=== PATIENT | male | born 1970 ===

== ENCOUNTER 2021-09-23 08:50 | Emergency (ER) | payer MEDICAID, SELFPAY ==
[2021-09-23] VITALS (7 sets, daily range): BP systolic 153–168; BP diastolic 90–118; PULSE 67–84; RESP 16–20; TEMP 36.6–36.8; O2SAT 92–96; BMI 37.5
--- NOTE | ~2021-09-23 | XR_ITS ---
EXAMINATION: XR CHEST CLINICAL INFORMATION: Cough COMPARISON: Chest radiographs 05/08/2020, 03/26/2020, CT abdomen 03/26/2020 TECHNIQUE: Portable upright AP x2 views of the chest are obtained. FINDINGS: The lungs appear grossly clear. Bases are partly obscured by density of the overlying soft tissues and prominent epicardial areolar tissue. No air bronchograms or gross effusion. Vascularity normal. The cardiac and hilar and mediastinal contours and bony structures are stable. XR/XR chest 1V IMPRESSION: No acute intrathoracic disease.
--- NOTE | ~2021-09-23 | CT_ITS ---
EXAMINATION: CT HEAD WITHOUT CONTRAST CLINICAL INFORMATION: Weakness COMPARISON: None TECHNIQUE: Contiguous axial imaging was performed from the skull base to vertex without intravenous administration of contrast. This CT examination was performed using dose optimization techniques as appropriate, variously including the following: *Automated exposure control *Adjustment of mA and/or kV according to patient size (this includes techniques or standardized protocols for targeted exams where dose is matched to indication/reason for exam; i.e. extremities or head) *Use of iterative reconstruction technique DLP: 1009 mGy-cm FINDINGS: There is no evidence of acute intracranial hemorrhage or territorial infarction. No abnormal mass effect or midline shift is seen. Bravo to white matter differentiation is well preserved. No extra-axial fluid collections are identified. The ventricles are normal in size. There is no abnormal attenuation within the brain parenchyma. The osseous structures and soft tissues are normal. The mastoid air cells and visualized portions of the paranasal sinuses are well aerated. CT/CT head/brain wo con IMPRESSION: No acute intracranial process seen.
--- NOTE | ~2021-09-23 | US_ITS ---
EXAMINATION: US VENOUS ULTRASOUND WITH DOPPLER LOWER EXTREMITY, BILATERAL CLINICAL INFORMATION: Bilateral lower extremity pain. Assess for occult DVT COMPARISON: Bilateral lower extremity venous ultrasound with Doppler 04/08/2020, CT pelvis 03/26/2020 TECHNIQUE: Ultrasound of the deep veins is performed from the hip to the calf with compression sonography and color and pulse Doppler assessment. Spectral analysis with color-flow imaging is performed. FINDINGS: RIGHT: There is normal venous compression and respiratory variation and augmented flow. The visualized common femoral vein, superficial femoral vein, profunda femoral vein, popliteal vein, and the trifurcation region shows no evidence of deep venous thrombosis. No popliteal fossa cyst. LEFT: There is normal venous compression and respiratory variation and augmented flow. The visualized common femoral vein, superficial femoral vein, profunda femoral vein, popliteal vein, and the trifurcation region shows no evidence of deep venous thrombosis. No popliteal fossa cyst. There are incidental node seen bilateral inguinal regions with normal ye architecture and short axis dimensions 0.6 cm left and 0.5 cm right. US/US venous duplex LE BI IMPRESSION: No DVT demonstrated in the bilateral lower extremity.
[2021-09-23] MEDS: 0.9 % Sodium Chloride 1,000 ML 999 ML IV (09:34)
[2021-09-23 09:39] LABS: MANUAL DIFF FLAG NO
--- NOTE | 2021-09-23 09:40 | ED.GENADULT ---
HPI - General Adult General Chief complaint: General Medical Stated complaint: dizziness, cough, weakness Time Seen by Provider: 09/23/21 09:04 Source: patient Mode of arrival: ambulatory Limitations: no limitations History of Present Illness HPI narrative: 50-year-old male with no past medical history presents to ED for fatigue, weakness, chills and cough for the past 5 days. Patient states not vaccinated. Patient denies any chest pain, shortness of breath, or lower extremity swelling. Patient denies any abdominal pain. Patient also states mild low back pain. Patient denies any recent long travel, recent surgery, history of blood clots, estrogen use, or any recent trauma. Patient denies any pleuritic chest pain. Patient denies coughing up blood. Patient denies calf pain. Related Data Allergies Allergy/AdvReac Type Severity Reaction Status Date / Time No Known Allergies Allergy Unverified 07/17/20 17:06 [No Known Allergies*] Review of Systems Review of Systems: Yes all other systems are reviewed and are negative Constitutional: Constitutional: Reports as per HPI, Reports no additional constitutional complaints, Reports chills and Reports fatigue Eyes: Eyes: Reports as per HPI and Reports no additional eye complaints ENT: Reports system reviewed and no additional complaints, except as documented and Reports as per HPI Cardiovascular: Cardiovascular: Reports as per HPI and Reports no additional cardiovascular complaints Respiratory: Respiratory: Reports as per HPI, Reports no additional respiratory complaints and Reports cough Gastrointestinal: Gastrointestinal: Reports as per HPI and Reports no additional gastrointestinal complaints Musculoskeletal: Musculoskeletal: Reports no additional musculoskeletal complaints and Reports as per HPI Integumentary/Breasts: Skin/Breast: Reports system reviewed and no additional complaints, except as docu and Reports as per HPI Neurologic: Reports system reviewed and no additional complaints, except as documented and Reports as per HPI Psychiatric: Psychiatric: Reports no additional psychiatric complaints Endocrine: Endocrine: Reports no additional endocrine complaints, Reports as per HPI and Reports fatigue [facility] Past Medical History Medical History (Updated 09/23/21 @ 16:20 by JACLYN Shore) Depression Social History Social History Alcohol intake: never Smoked in Last 30 Days: No Use of substances other than those prescribed or required for medical reasons: No Advance Directives: No Physical Exam Vital Signs: Vital Signs: Last Vital Signs Temp 97.9 F 09/23/21 15:54 Pulse 70 09/23/21 16:19 Resp 16 09/23/21 15:54 BP 168/112 H 09/23/21 16:19 Pulse Ox 96 09/23/21 16:46 Body Mass Index 37.5 Const: General: cooperative, healthy appearing, comfortable, no acute distress, well developed, alert, awake and Physically active Orientation/consciousness: patient oriented x3 HENMT: Head: Yes normal to inspection, Yes No palpable skull fracture present, Yes normocephalic and Yes atraumatic Eyes: General: appearance normal, both eyes and all related structures Neck: Neck: Yes normal visual inspection, Yes full ROM, Yes no lymphadenopathy, Yes no meningeal signs, Yes trachea midline, Yes supple, No anterior neck swelling and No tender Chest: Chest palpation & inspection: normal inspection of the chest and normal palpation of entire chest wall Resp: Effort & Inspection: normal respiratory effort and able to speak in complete sentences Auscultation: clear to auscultation bilaterally Cardio: Jugular venous distension: no JVD Heart sounds: S1 normal heart sound present and S2 normal heart sound present GI: Inspection: Yes normal to inspection and No abdominal wall ecchymosis Palpation (GI): Soft to palpation, not firm, nontender, no guarding and not rigid : General: No CVA tenderness Back/Spine/Pelvis: Back: No CVA tenderness and No back tenderness Skin: General skin exam: no rashes or lesions noted and elasticity normal Neuro: Other: Negative slurred speech. Negative facial droop. All extremities equal strength 5+. [id number] rapid hand movement intact. Negative Romberg. Negative pronator drift. General: patient oriented x3, gait normal, no meningeal signs and CN's II-XI intact bilaterally Cranial nerves: Yes CN's II-XII intact bilaterally Extrem: Other: Lower extremities negative for swelling, pitting edema, or calf tenderness General: Yes normal to inspection and Yes full ROM Psych: Appearance: grossly normal, well kempt and not disheveled Course Course Course Narrative: Patient has no medical history but due to patient stating fatigue and cough will do cardiac evaluation due to patient being overweight and over 50. COVID swab will be sent and chest x-ray. Fluids ordered. Maybe viral syndrome. EKG ordered Reevaluation(s) Reevaluation #1: Patient EKG negative STEMI. Troponins negative. Patient informed me his legs were swelling 4 days ago with some pain but resolved on its own. To this patient was sent for ultrasound lower extremity which was negative for DVT. Chest x-ray negative pneumonia. COVID/RSV/influenza came back negative. Patient hypertensive because he did not take his meds for blood pressure this morning. Negative for any neuro deficits. takes lisinopril. Negative orthostatics. Urine negative for UTI. Not suspecting PE. Head CT scan was done due to patient stating fatigue or weakness although most likely due to mild viral syndrome. Patient will be given lisinopril dose before discharge. O2 sat on ambulation 96%. Not suspecting PE. Initial presentation O2 sat 92% due to patient lying down flat and obestiy. Patient never complained of chest pain or shortness of breath. NIH score 0. Time: 16:13 Medical Decision Making MDM Narrative Medical decision making narrative: Viral syndrome. Fatigue. Hypertension Lab Data Result diagrams: 09/23/21 09:33 09/23/21 09:33 Labs: Lab Results 09/23/21 09/23/21 09/23/21 Range/Units 09:33 09:33 09:33 WBC 9.3 (4.8-10.8) X10*3/uL RBC 4.75 (4.60-5.80) X10*6/uL Hgb 15.2 (14.0-18.0) g/dl Hct 45.5 (42.0-52.0) % MCV 95.8 (80.0-98.0) fL MCH 32.0 (27.0-33.0) pg MCHC 33.4 (31.0-36.0) g/dl RDW 11.8 (11.0-16.0) % Plt Count 235 (160-400) X10*3/uL MPV 10.2 (9.4-12.4) fL Immature Gran % (Auto) 0.5 H (0.0-0.4) % Neut % (Auto) 72.6 (45-73) % Lymph % (Auto) 19.3 L (20-40) % Licking % (Auto) 5.2 (2-11) % Eos % (Auto) 2.0 (0-4) % Baso % (Auto) 0.4 (0-2) % Lymph # (Auto) 1.8 (1.2-4.9) X10*3/uL [place]icking # (Auto) 0.5 (0.1-1.2) X10*3/uL Eos # (Auto) 0.2 (0.0-0.4) X10*3/uL Baso # (Auto) 0.0 (0.0-0.2) X10*3/uL Abs Immat Gran (auto) 0.05 H (0.00-0.03) X10*3/uL Absolute Neuts (auto) 6.8 (2.0-8.3) x10*3/uL Absolute Nucleated RBC 0.000 (0.0-0.012) X10*3/uL Nucleated RBC % (auto) 0.0 (0.0-0.2) /100WBC PT 13.6 H (9.9-13.0) SEC INR 1.2 H (0.9-1.1) APTT 38.9 H (24.1-38.0) SEC Sodium 140 (135-145) mmol/L Potassium 3.9 (3.3-5.1) mmol/L Chloride 104 (96-108) mmol/L Carbon Dioxide 28 (22-29) mmol/L Anion Gap 12 (12-20) BUN 15 (9-16) mg/dL Creatinine 0.89 (0.5-1.4) mg/dL Estim Creat Clear Calc 136.8 Estimated GFR > 60 Random Glucose 125 H (60-115) mg/dL Calcium 9.4 (8.4-10.2) mg/dL Ferritin (20-250) ng/mL Total Bilirubin 0.8 (0.0-1.0) mg/dL AST 30 (5-37) U/L ALT 39 (0-40) U/L Alkaline Phosphatase 93 (39-117) U/L Lactate Dehydrogenase 249 (118-273) U/L Total Creatine Kinase 358 H (38-174) U/L Troponin I High Sens (<3.5-35.0) ng/L B-Natriuretic Peptide (<100) pg/mL Total Protein 7.9 (6.5-8.0) g/dL Albumin 4.2 (3.5-5.0) g/dL Procalcitonin ng/mL Urine Color Urine Appearance Urine pH (5.0-8.0) Ur Specific Mouthcard (1.005-1.025) Urine Protein (NEG-TRACE) MG/DL Urine Glucose (UA) (NEG) MG/DL Urine Ketones (NEG) MG/DL Urine Blood (NEG) Urine Nitrite (NEG) Ur Leukocyte Esterase (NEG) Urine RBC (0) /HPF Urine WBC (0-4) /HPF Ur Squamous Epith Cells Urine Bacteria Influenza Type A (PCR) (Negative) Influenza Type B (PCR) (Negative) RSV RNA Qual (PCR) (Negative) SARS-CoV-2 RNA (RT-PCR) (Negative) 09/23/21 09/23/21 09/23/21 Range/Units 09:33 09:33 09:33 WBC (4.8-10.8) X10*3/uL RBC (4.60-5.80) X10*6/uL Hgb (14.0-18.0) g/dl Hct (42.0-52.0) % MCV (80.0-98.0) fL MCH (27.0-33.0) pg MCHC (31.0-36.0) g/dl RDW (11.0-16.0) % Plt Count (160-400) X10*3/uL MPV (9.4-12.4) fL Immature Gran % (Auto) (0.0-0.4) % Neut % (Auto) (45-73) % Lymph % (Auto) (20-40) % Licking % (Auto) (2-11) % Eos % (Auto) (0-4) % Baso % (Auto) (0-2) % Lymph # (Auto) (1.2-4.9) X10*3/uL [place]icking # (Auto) (0.1-1.2) X10*3/uL Eos # (Auto) (0.0-0.4) X10*3/uL Baso # (Auto) (0.0-0.2) X10*3/uL Abs Immat Gran (auto) (0.00-0.03) X10*3/uL Absolute Neuts (auto) (2.0-8.3) x10*3/uL Absolute Nucleated RBC (0.0-0.012) X10*3/uL Nucleated RBC % (auto) (0.0-0.2) /100WBC PT (9.9-13.0) SEC INR (0.9-1.1) APTT (24.1-38.0) SEC Sodium (135-145) mmol/L Potassium (3.3-5.1) mmol/L Chloride (96-108) mmol/L Carbon Dioxide (22-29) mmol/L Anion Gap (12-20) BUN (9-16) mg/dL Creatinine (0.5-1.4) mg/dL Estim Creat Clear Calc Estimated GFR Random Glucose (60-115) mg/dL Calcium (8.4-10.2) mg/dL Ferritin 145 (20-250) ng/mL Total Bilirubin (0.0-1.0) mg/dL AST (5-37) U/L ALT (0-40) U/L Alkaline Phosphatase (39-117) U/L Lactate Dehydrogenase (118-273) U/L Total Creatine Kinase (38-174) U/L Troponin I High Sens 6.1 (<3.5-35.0) ng/L B-Natriuretic Peptide 10 (<100) pg/mL Total Protein (6.5-8.0) g/dL Albumin (3.5-5.0) g/dL Procalcitonin 0.02 ng/mL Urine Color Urine Appearance Urine pH (5.0-8.0) Ur Specific Mouthcard (1.005-1.025) Urine Protein (NEG-TRACE) MG/DL Urine Glucose (UA) (NEG) MG/DL Urine Ketones (NEG) MG/DL Urine Blood (NEG) Urine Nitrite (NEG) Ur Leukocyte Esterase (NEG) Urine RBC (0) /HPF Urine WBC (0-4) /HPF Ur Squamous Epith Cells Urine Bacteria Influenza Type A (PCR) (Negative) Influenza Type B (PCR) (Negative) RSV RNA Qual (PCR) (Negative) SARS-CoV-2 RNA (RT-PCR) (Negative) 09/23/21 09/23/21 09/23/21 Range/Units 10:05 10:36 12:51 WBC (4.8-10.8) X10*3/uL RBC (4.60-5.80) X10*6/uL Hgb (14.0-18.0) g/dl Hct (42.0-52.0) % MCV (80.0-98.0) fL MCH (27.0-33.0) pg MCHC (31.0-36.0) g/dl RDW (11.0-16.0) % Plt Count (160-400) X10*3/uL MPV (9.4-12.4) fL Immature Gran % (Auto) (0.0-0.4) % Neut % (Auto) (45-73) % Lymph % (Auto) (20-40) % [place]icking % (Auto) (2-11) % Eos % (Auto) (0-4) % Baso % (Auto) (0-2) % Lymph # (Auto) (1.2-4.9) X10*3/uL [place] # (Auto) (0.1-1.2) X10*3/uL Eos # (Auto) (0.0-0.4) X10*3/uL Baso # (Auto) (0.0-0.2) X10*3/uL Abs Immat Gran (auto) (0.00-0.03) X10*3/uL Absolute Neuts (auto) (2.0-8.3) x10*3/uL Absolute Nucleated RBC (0.0-0.012) X10*3/uL Nucleated RBC % (auto) (0.0-0.2) /100WBC PT (9.9-13.0) SEC INR (0.9-1.1) APTT (24.1-38.0) SEC Sodium (135-145) mmol/L Potassium (3.3-5.1) mmol/L Chloride (96-108) mmol/L Carbon Dioxide (22-29) mmol/L Anion Gap (12-20) BUN (9-16) mg/dL Creatinine (0.5-1.4) mg/dL Estim Creat Clear Calc Estimated GFR Random Glucose (60-115) mg/dL Calcium (8.4-10.2) mg/dL Ferritin (20-250) ng/mL Total Bilirubin (0.0-1.0) mg/dL AST (5-37) U/L ALT (0-40) U/L Alkaline Phosphatase (39-117) U/L Lactate Dehydrogenase (118-273) U/L Total Creatine Kinase (38-174) U/L Troponin I High Sens 6.2 (<3.5-35.0) ng/L B-Natriuretic Peptide (<100) pg/mL Total Protein (6.5-8.0) g/dL Albumin (3.5-5.0) g/dL Procalcitonin ng/mL Urine Color YELLOW Urine Appearance CLEAR Urine pH 6.5 (5.0-8.0) Ur Specific Mouthcard 1.020 (1.005-1.025) Urine Protein NEG (NEG-TRACE) MG/DL Urine Glucose (UA) NEG (NEG) MG/DL Urine Ketones NEG (NEG) MG/DL Urine Blood TRACE (NEG) Urine Nitrite NEG (NEG) Ur Leukocyte Esterase NEG (NEG) Urine RBC 0-2 (0) /HPF Urine WBC 0-2 (0-4) /HPF Ur Squamous Epith Cells Not Reportable Urine Bacteria Not Reportable Influenza Type A (PCR) NEGATIVE (Negative) Influenza Type B (PCR) NEGATIVE (Negative) RSV RNA Qual (PCR) NEGATIVE (Negative) SARS-CoV-2 RNA (RT-PCR) NEGATIVE (Negative) ECG Data Interpretation: Normal sinus rhythm. VEntricular rate 67, MN interval 180, QRS 108, and QTC 414. negativ stemi. Discharge Plan Discharge Clinical Impression: Fatigue, Viral syndrome, Hypertension Patient Disposition: Home, Self-Care Instructions: Upper Respiratory Infection (ED), Viral Syndrome (ED), Weakness (ED), Hypertension (ED), Fatigue (ED) Additional Instructions: El electrocardiograma y los an?lisis de parker resultaron negativos por ataque card?aco, insuficiencia card?azul congestiva o disfunci?n renal. Gil radiograf?a de t?rax fue negativa para neumon?a. Gil hisopo COVID result? negativo. Ultrasonido negativo para cualquier co?gulo de parker. La tomograf?a computarizada de la mary result? normal. Los s?ntomas probablemente se deben al s?ndrome viral debido a la tos y la fatiga / debilidad. Regrese al servicio de urgencias de inmediato si tiene dolor en el pecho, dificultad para respirar, dificultad para hablar, declive facial, par?lisis de las extremidades, p?rdida de la visi?n, dolor en el pecho, dificultad para respirar, tos con parker, mareos descritos jossie la habitaci?n dando vueltas o cualquier otra preocupaci?n. s?ntomas. Mariama un seguimiento con el proveedor de atenci?n primaria. Swapnil gil medicamento para la presi?n arterial seg?n lo prescrito. Stand Alone Forms: Work/School Release Interventions: ED Discharge Assessment Last Done: 09/23/21 16:53 Discharge Date/Time: 09/23/21 16:53 Print Language: Armenian
[2021-09-23 09:42] LABS: Basophils Percent Auto 0.4 % (0-2); Eosinophils Absolute Auto 0.2 X10*3/uL (0.0-0.4); Hematocrit 45.5 % (42.0-52.0); Hemoglobin 15.2 g/dl (14.0-18.0); Imm Gran Abs Auto 0.05 X10*3/uL (0.00-0.03); Imm Gran Pct Auto 0.5 % (0.0-0.4); Lymphocytes Absolute Auto 1.8 X10*3/uL (1.2-4.9); Lymphocytes Percent Auto 19.3 % (20-40); Mean Corpuscular HGB Conc 33.4 g/dl (31.0-36.0); Mean Corpuscular Volume 95.8 fL (80.0-98.0); Mean Platelet Volume 10.2 fL (9.4-12.4); Monocytes Absolute Auto 0.5 X10*3/uL (0.1-1.2); Monocytes Percent Auto 5.2 % (2-11); Neutrophils Absolute Auto 6.8 x10*3/uL (2.0-8.3); Neutrophils Percent Auto 72.6 % (45-73); Platelet Count 235 X10*3/uL (160-400); Red Blood Count 4.75 X10*6/uL (4.60-5.80); Red Cell Distribution Width 11.8 % (11.0-16.0); White Blood Count 9.3 X10*3/uL (4.8-10.8)
[2021-09-23 09:46] LABS: INTERNATIONAL NORM RATIO 1.2 (0.9-1.1); Prothrombin Time 13.6 SEC (9.9-13.0)
[2021-09-23 09:48] LABS: Partial Thromboplastin Time 38.9 SEC (24.1-38.0)
--- NOTE | 2021-09-23 10:00 | ECG_ITS ---
Test Reason : dizzy Blood Pressure : / mmHG Vent. Rate : 067 BPM Atrial Rate : 067 BPM P-R Int : 180 ms QRS Dur : 108 ms QT Int : 392 ms P-R-T Axes : 025 -61 027 degrees QTc Int : 414 ms Normal sinus rhythm Left anterior fascicular block Nonspecific T wave abnormality Abnormal ECG When compared with ECG of 08-MAY-2020 11:20, Nonspecific T wave abnormality now evident in Lateral leads Referred By: Arturo Oakley Electronically Signed By:MARIA TERESA GRAY MD
[2021-09-23 10:04] LABS: B Type Natriuretic Peptide 10 pg/mL (<100); Troponin-I High Sensitivity 6.1 ng/L (<3.5-35.0)
[2021-09-23 10:13] LABS: Alanine Aminotransferase 39 U/L (0-40); Albumin Level 4.2 g/dL (3.5-5.0); Alkaline Phosphatase 93 U/L (39-117); Anion Gap 12 (12-20); Aspartate Amino Transferase 30 U/L (5-37); Bilirubin Total 0.8 mg/dL (0.0-1.0); Blood Urea Nitrogen 15 mg/dL (9-16); Calcium 9.4 mg/dL (8.4-10.2); Carbon Dioxide 28 mmol/L (22-29); Chloride 104 mmol/L (96-108); Creatinine Clr Calc Pharmacy 136.8; Estimated Glomerular Filt Rate > 60; Glucose Random 125 mg/dL (60-115); Potassium 3.9 mmol/L (3.3-5.1); Sodium 140 mmol/L (135-145); Total Protein 7.9 g/dL (6.5-8.0)
[2021-09-23 10:19] LABS: Ferritin 145 ng/mL (20-250)
[2021-09-23 10:21] LABS: Procalcitonin 0.02 ng/mL
[2021-09-23 10:29] LABS: Lactate Dehydrogenase 249 U/L (118-273)
[2021-09-23 10:48] LABS: Influenza A PCR NEGATIVE (Negative); Influenza B PCR NEGATIVE (Negative); Resp Syncy Virus RNA Qual PCR NEGATIVE (Negative); SARS COV2 PCR INHOUSE NEGATIVE (Negative)
[2021-09-23 10:49] LABS: Appearance Urine CLEAR; Color Urine YELLOW; Glucose Urine UA NEG (NEG); Leukocyte Esterase Urine NEG (NEG); Nitrite Urine NEG (NEG); PH 6.5 (5.0-8.0); UACC Culture Trigger NO; Urine Blood TRACE (NEG); Urine Ketones NEG (NEG); Urine Protein NEG (NEG-TRACE)
[2021-09-23 11:20] LABS: RBC Urine 0-2 /HPF (0); WBC Urine 0-2 /HPF (0-4)
[2021-09-23 13:15] LABS: Troponin-I High Sensitivity 6.2 ng/L (<3.5-35.0)
[2021-09-23] MEDS: lisinopriL 10 MG TABLET PO (16:19)
== END 2021-09-23 16:53 | disposition home or self-care (01) ==
PROVIDERS: Physician Assistant; Emergency Provider Emergency Medicine
DX: B34.9 Viral infection, unspecified (principal); R53.83 Other fatigue; I10 Essential (primary) hypertension; Z20.822 Contact with and (suspected) exposure to COVID-19; R42 Dizziness and giddiness; M54.50 Low back pain, unspecified; R05.9 Cough, unspecified; R53.1 Weakness; M79.89 Other specified soft tissue disorders; M79.662 Pain in left lower leg; M79.661 Pain in right lower leg
CPT/HCPCS: 0241U; 36415; 70450; 71045; 80053; 81001; 81003; 82550; 82728; 83615; 83880; 84145; 84484; 85025; 85610; 85730; 93005; 93970; 96360; 99284

== ENCOUNTER 2022-08-16 08:19 | Emergency (ER) | payer MEDICAID, SELFPAY ==
--- NOTE | ~2022-08-16 | XR_ITS ---
EXAMINATION: XR CHEST CLINICAL INFORMATION: Chest pain COMPARISON: 09/23/2021 TECHNIQUE: Frontal view of the chest was obtained. FINDINGS: Low lung volumes with bronchovascular crowding but no focal consolidation or mass. Normal pulmonary vascularity. No pleural effusion or pneumothorax. Cardiac silhouette remains prominent with prominent epicardial fat pads, similar to prior studies. No acute osseous abnormality. XR/XR chest 1V IMPRESSION: No acute pulmonary disease.
--- NOTE | 2022-08-16 08:25 | ECG_ITS ---
Test Reason : CP Blood Pressure : / mmHG Vent. Rate : 073 BPM Atrial Rate : 073 BPM P-R Int : 168 ms QRS Dur : 104 ms QT Int : 382 ms P-R-T Axes : 037 270 027 degrees QTc Int : 420 ms Normal sinus rhythm Left anterior fascicular block Nonspecific T wave abnormality Abnormal ECG When compared with ECG of 23-SEP-2021 10:19, No significant change was found Referred By: Generic ED Physician Electronically Signed By:MARIA TERESA GRAY MD
[2022-08-16 08:35] VITALS: BP 187/99; PULSE 64; RESP 18; TEMP 36.1; O2SAT 92; BMI 54.1
--- NOTE | 2022-08-16 09:09 | ED.CHESTPAIN ---
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 Also notes several months of bilateral ear itching drainage pain and hearing loss - has seeked no treatment. MD complaint: chest pain Onset (ago): week(s) (2) Timing of current episode: episodic Prior episodes: Yes Onset: other (emotional stress) Pain location: left chest Pain radiation: none Severity: moderate Quality: sharp Relieving factors: nothing Exacerbating factors: stress Associated symptoms: other (ear pain) Treatment prior to arrival: none Related Data Previous Rx's Medication Instructions Recorded levofloxacin 500 mg tablet 500 mg PO DAILY #10 tabs 08/16/22 ofloxacin 0.3 % ear drops 10 drp otic (ears) DAILY 7 days 08/16/22 #10 mL Allergies Allergy/AdvReac Type Severity Reaction Status Date / Time No Known Allergies Allergy Verified 08/16/22 08:34 [No Known Allergies*] Review of Systems Review of Systems: Constitutional : No Weight loss, No Fever, No Chills ENT/Mouth : No sore throat, No Rhinorrhea, pos ear pain/drainage Eyes: No Eye Pain, No Swelling Cardiovascular : pos Chest Pain, no SOB, no Dyspnea on Exertion, No Orthopnea, No Edema, No Palpitations Respiratory : No Cough, No Sputum Gastrointestinal : no Nausea, No Vomiting, No Diarrhea, No abdominal Pain, No Hematochezia, No Melena Genitourinary : No Dysuria, No Urinary Frequency Musculoskeletal : No joint pain, No Myalgias, No Joint Swelling Skin : No Skin Lesions, No rash Neuro : No Weakness, No Numbness, No Dizziness, No Headache Psych : No Anxiety/Panic, No Depression Heme/Lymph: No Bruising, No Lymphadenopathy Endocrine : No Polyuria, No Polydipsia All other systems reviewed and are negative PMFSH Past Medical History Attestation statement: The following information was validated with the patient. Medical History Depression HTN (hypertension) Social History Social History Household Members: None Alcohol intake: former Year quit: 2009 Patient Tobacco Use Status: Never used Tobacco Advance Directives: No Advance Directives Information Provided: Yes Physical Exam Vital Signs: Vital Signs: Last Vital Signs Temp 97 F 08/16/22 08:35 Pulse 64 08/16/22 08:35 Resp 18 08/16/22 08:35 BP 187/99 H 08/16/22 08:35 Pulse Ox 92 08/16/22 08:35 O2 Del Method 08/16/22 08:35 BMI result Body Mass Index 54.1 Appearance: Alert. Oriented X3. No acute distress. Eyes: Pupils equal, round and reactive to light. ENT: Pharynx normal. Bilateral external canals mild swelling erythema flaking and yellow drainage moderate, both TMs red and bulging with effusions - I cannot see entire drum Neck: Normal inspection. Neck supple. CVS: Normal heart rate and rhythm. Pulses normal. Respiratory: No respiratory distress. Breath sounds normal. Abdomen: Soft and nontender. Obese Skin: Skin warm and dry. Normal skin color. Normal skin turgor. Extremities: No lower extremity edema. No calf ttp Neuro: Oriented X 3. No motor deficit. No sensory deficit. Course Course Course Narrative: tro flat, ddimer negative, CXR negative, nonischemic EKG with 2 weeks of symptoms stable forDC MDM - Chest Pain MDM Narrative Medical decision making narrative: 51 yo male with hx of HTN and depression presents with atypical L sided pleuritic chest pain and palpitations x 2 weeks - seems atypical for ACS will need EKG, troponin x 1, ddimer, CXR - could be VTE vs MSK vs pleurisy. Also chronic bilateral OE and AOM - drops and oral medications with referral to ENT. Lab Data Result diagrams: 08/16/22 09:17 08/16/22 09:17 Labs: Lab Results 08/16/22 08/16/22 08/16/22 Range/Units 09:17 09:17 09:17 WBC 9.5 (4.8-10.8) X10*3/uL RBC 4.48 L (4.60-5.80) X10*6/uL Hgb 14.5 (14.0-18.0) g/dl Hct 43.0 (42.0-52.0) % MCV 96.0 (80.0-98.0) fL MCH 32.4 (27.0-33.0) pg MCHC 33.7 (31.0-36.0) g/dl RDW 11.8 (11.0-16.0) % Plt Count 231 (160-400) X10*3/uL MPV 10.4 (9.4-12.4) fL Immature Gran % (Auto) 0.4 (0.0-0.4) % Neut % (Auto) 67.9 (45-73) % Lymph % (Auto) 20.3 (20-40) % [place] % (Auto) 8.7 (2-11) % Eos % (Auto) 2.2 (0-4) % Baso % (Auto) 0.5 (0-2) % Lymph # (Auto) 1.9 (1.2-4.9) X10*3/uL [place] # (Auto) 0.8 (0.1-1.2) X10*3/uL Eos # (Auto) 0.2 (0.0-0.4) X10*3/uL Baso # (Auto) 0.1 (0.0-0.2) X10*3/uL Abs Immat Gran (auto) 0.04 H (0.00-0.03) X10*3/uL Absolute Neuts (auto) 6.5 (2.0-8.3) x10*3/uL Absolute Nucleated RBC 0.000 (0.0-0.012) X10*3/uL Nucleated RBC % (auto) 0.0 (0.0-0.2) /100WBC D-Dimer High Sensitivty 200 NG/ML Sodium 138 (135-145) mmol/L Potassium 4.7 D (3.3-5.1) mmol/L Chloride 103 (96-108) mmol/L Carbon Dioxide 26 (22-29) mmol/L Anion Gap 14 (12-20) BUN 15 (9-16) mg/dL Creatinine 0.81 (0.5-1.4) mg/dL Estim Creat Clear Calc 182.5 Estimated GFR > 60 Random Glucose 99 (60-115) mg/dL Calcium 9.2 (8.4-10.2) mg/dL Magnesium 1.9 (1.6-2.6) mg/dL Total Bilirubin 0.9 (0.0-1.0) mg/dL Direct Bilirubin 0.2 (0.0-0.5) mg/dL AST 39 H (5-37) U/L ALT 33 (0-40) U/L Alkaline Phosphatase 89 (39-117) U/L Troponin I High Sens (<3.5-35.0) ng/L B-Natriuretic Peptide (<100) pg/mL Total Protein 7.9 (6.5-8.0) g/dL Albumin 4.1 (3.5-5.0) g/dL Lipase 60 (8-78) U/L COVID-19 ([facility]) (Negative) COVID-19 Clin Com 08/16/22 08/16/22 08/16/22 Range/Units 09:17 09:17 09:17 WBC (4.8-10.8) X10*3/uL RBC (4.60-5.80) X10*6/uL Hgb (14.0-18.0) g/dl Hct (42.0-52.0) % MCV (80.0-98.0) fL MCH (27.0-33.0) pg MCHC (31.0-36.0) g/dl RDW (11.0-16.0) % Plt Count (160-400) X10*3/uL MPV (9.4-12.4) fL Immature Gran % (Auto) (0.0-0.4) % Neut % (Auto) (45-73) % Lymph % (Auto) (20-40) % [place] % (Auto) (2-11) % Eos % (Auto) (0-4) % Baso % (Auto) (0-2) % Lymph # (Auto) (1.2-4.9) X10*3/uL [place] # (Auto) (0.1-1.2) X10*3/uL Eos # (Auto) (0.0-0.4) X10*3/uL Baso # (Auto) (0.0-0.2) X10*3/uL Abs Immat Gran (auto) (0.00-0.03) X10*3/uL Absolute Neuts (auto) (2.0-8.3) x10*3/uL Absolute Nucleated RBC (0.0-0.012) X10*3/uL Nucleated RBC % (auto) (0.0-0.2) /100WBC D-Dimer High Sensitivty NG/ML Sodium (135-145) mmol/L Potassium (3.3-5.1) mmol/L Chloride (96-108) mmol/L Carbon Dioxide (22-29) mmol/L Anion Gap (12-20) BUN (9-16) mg/dL Creatinine (0.5-1.4) mg/dL Estim Creat Clear Calc Estimated GFR Random Glucose (60-115) mg/dL Calcium (8.4-10.2) mg/dL Magnesium (1.6-2.6) mg/dL Total Bilirubin (0.0-1.0) mg/dL Direct Bilirubin (0.0-0.5) mg/dL AST (5-37) U/L ALT (0-40) U/L Alkaline Phosphatase (39-117) U/L Troponin I High Sens 3.6 (<3.5-35.0) ng/L B-Natriuretic Peptide 10 (<100) pg/mL Total Protein (6.5-8.0) g/dL Albumin (3.5-5.0) g/dL Lipase (8-78) U/L COVID-19 ([facility]) Negative (Negative) COVID-19 Clin Com See Note Discharge Plan Discharge Clinical Impression: Palpitations, Atypical chest pain Otitis externa Qualifiers: Otitis externa type: diffuse Chronicity: chronic Laterality: bilateral Qualified Code(s): H60.313 - Diffuse otitis externa, bilateral Otitis media Qualifiers: Otitis media type: suppurative Chronicity: chronic Laterality: bilateral Suppurative otitis media location: unspecified location Qualified Code(s): H66.3X3 - Other chronic suppurative otitis media, bilateral Patient Disposition: Home, Self-Care Instructions: Chest Pain (ED), Heart Palpitations (ED), Otitis Externa (ED), Ear Infection (ED) Additional Instructions: return to ED for any worsening symptoms or concerns Prescriptions: New ofloxacin 0.3 % drops 10 drp otic (ears) DAILY 7 Days Qty: 10 0RF levofloxacin 500 mg tablet 500 mg PO DAILY Qty: 10 0RF Referrals: [facility] [Primary Care Provider] - 1 week Zack Wilhelm [Physician] - 1 week Print Language: Citizen Of [place]
[2022-08-16 09:23] LABS: MANUAL DIFF FLAG NO
--- NOTE | 2022-08-16 09:23 | PC.NURSE ---
20 ga est l hand 1 attempt pt remins in nsr in lead2, pt in no distress.
[2022-08-16 09:26] LABS: Basophils Absolute Auto 0.1 X10*3/uL (0.0-0.2); Basophils Percent Auto 0.5 % (0-2); Eosinophils Absolute Auto 0.2 X10*3/uL (0.0-0.4); Eosinophils Percent Auto 2.2 % (0-4); Hemoglobin 14.5 g/dl (14.0-18.0); Imm Gran Abs Auto 0.04 X10*3/uL (0.00-0.03); Imm Gran Pct Auto 0.4 % (0.0-0.4); Lymphocytes Absolute Auto 1.9 X10*3/uL (1.2-4.9); Lymphocytes Percent Auto 20.3 % (20-40); Mean Corpuscular HGB Conc 33.7 g/dl (31.0-36.0); Mean Corpuscular Hemoglobin 32.4 pg (27.0-33.0); Mean Platelet Volume 10.4 fL (9.4-12.4); Monocytes Absolute Auto 0.8 X10*3/uL (0.1-1.2); Monocytes Percent Auto 8.7 % (2-11); Neutrophils Absolute Auto 6.5 x10*3/uL (2.0-8.3); Neutrophils Percent Auto 67.9 % (45-73); Platelet Count 231 X10*3/uL (160-400); Red Blood Count 4.48 X10*6/uL (4.60-5.80); Red Cell Distribution Width 11.8 % (11.0-16.0); White Blood Count 9.5 X10*3/uL (4.8-10.8)
[2022-08-16 09:36] LABS: D Dimer High Sensitivity 200 NG/ML
[2022-08-16 09:41] LABS: COVID-19 Test Negative (Negative); IDNOW Serial# 9DB6401D
[2022-08-16 09:45] LABS: Alanine Aminotransferase 33 U/L (0-40); Albumin Level 4.1 g/dL (3.5-5.0); Alkaline Phosphatase 89 U/L (39-117); Anion Gap 14 (12-20); Aspartate Amino Transferase 39 U/L (5-37); Bilirubin Direct 0.2 mg/dL (0.0-0.5); Bilirubin Total 0.9 mg/dL (0.0-1.0); Blood Urea Nitrogen 15 mg/dL (9-16); Calcium 9.2 mg/dL (8.4-10.2); Carbon Dioxide 26 mmol/L (22-29); Chloride 103 mmol/L (96-108); Creatinine Clr Calc Pharmacy 182.5; Estimated Glomerular Filt Rate > 60; Glucose Random 99 mg/dL (60-115); Lipase 60 U/L (8-78); Magnesium 1.9 mg/dL (1.6-2.6); Potassium 4.7 mmol/L (3.3-5.1); Sodium 138 mmol/L (135-145); Total Protein 7.9 g/dL (6.5-8.0)
[2022-08-16 09:46] LABS: B Type Natriuretic Peptide 10 pg/mL (<100); Troponin-I High Sensitivity 3.6 ng/L (<3.5-35.0)
== END 2022-08-16 11:01 | disposition home or self-care (01) ==
PROVIDERS: Emergency Provider Emergency Medicine
DX: R00.2 Palpitations (principal); R07.89 Other chest pain; H60.313 Diffuse otitis externa, bilateral; H66.3X3 Other chronic suppurative otitis media, bilateral; Z20.822 Contact with and (suspected) exposure to COVID-19; I10 Essential (primary) hypertension; E66.9 Obesity, unspecified; Z68.43 Body mass index [BMI] 50.0-59.9, adult
CPT/HCPCS: 36415; 71045; 80048; 80076; 83690; 83735; 83880; 84484; 85025; 85379; 87635; 93005; 99283

== ENCOUNTER 2023-01-09 08:13 | Emergency (ER) | payer MEDICAID, SELFPAY ==
--- NOTE | ~2023-01-09 | CT_ITS ---
EXAMINATION: CT ABDOMEN AND PELVIS WITHOUT CONTRAST CLINICAL INFORMATION: Left flank pain. COMPARISON: March 26, 2020 TECHNIQUE: Multidetector volumetric imaging was performed from the superior aspect of the liver through the pubic symphysis. Sagittal and coronal reformatted images were obtained on the technologist's workstation. This CT examination was performed using dose optimization techniques as appropriate, variously including the following: *Automated exposure control *Adjustment of mA and/or kV according to patient size (this includes techniques or standardized protocols for targeted exams where dose is matched to indication/reason for exam; i.e. extremities or head) *Use of iterative reconstruction technique DLP: 1556 mGy-cm FINDINGS: There is a large amount of motion artifact present. This gives the appearance of hazy density to the mesenteric fat. LUNG BASES: No pleural or pericardial effusion. Atelectatic changes seen. No confluent pneumonitis appreciated. LIVER, GALLBLADDER, AND BILIARY TREE: There is diffuse fatty infiltration of the liver without focal mass or intrahepatic bile duct dilatation. The liver is mildly enlarged with vertical span of 20 cm. The gallbladder is unremarkable with no evidence of radiopaque gallstones, gallbladder wall thickening, or obvious pericholecystic inflammatory changes. PANCREAS: Unremarkable. SPLEEN: Unremarkable. ADRENAL GLANDS: Unremarkable. KIDNEYS AND URETERS: The kidneys are normal in size, shape, and attenuation. No hydronephrosis, hydroureter, or calculi seen. No perinephric stranding. BLADDER: Unremarkable. GASTROINTESTINAL TRACT: No dilated loops of large or small bowel are evident. No free air or free fluid is seen. No pericolonic inflammatory change. The appendix appears unremarkable. ABDOMINAL WALL: No significant hernia is appreciated. LYMPH NODES: No lymphadenopathy appreciated. VASCULAR: Unremarkable. PELVIC VISCERA: Unremarkable. Prostate calcification present. OSSEOUS STRUCTURES: No suspicious destructive bony lesions identified. There are healing fractures of the left lateral sixth and seventh ribs. Degenerative disc disease seen throughout the visualized thoracic spine. CT/CT abdomen pelvis wo IV con IMPRESSION: No evidence of obstructive uropathy. No evidence of acute diverticulitis. Diffuse fatty infiltration of the liver. Healing left sixth and seventh rib fractures. Fleischner guidelines were followed.
[2023-01-09 08:21] VITALS: BP 155/103; PULSE 76; RESP 18; TEMP 36.5; O2SAT 93; BMI 54.1
--- NOTE | 2023-01-09 08:25 | ED.ABDPAIN ---
HPI - Abdominal Pain General Chief Complaint: Urogenital-Male Stated Complaint: LLQ pain Time Seen by Provider: 01/09/23 08:17 Source: patient Mode of arrival: ambulatory History of Present Illness HPI narrative: This is a 52-year-old male with history of hypertension and reports onset of left flank/ lower quadrant pain since last night but denies any associated fever, chills, nausea, vomiting and states that he has difficulty with urination at baseline. Related Data Previous Rx's Medication Instructions Recorded levofloxacin 500 mg tablet 500 mg PO DAILY #10 tabs 08/16/22 ofloxacin 0.3 % ear drops 10 drp otic (ears) DAILY 7 days 08/16/22 #10 mL Allergies Allergy/AdvReac Type Severity Reaction Status Date / Time No Known Allergies Allergy Verified 08/16/22 08:34 [No Known Allergies*] Review of Systems Review of Systems Pertinent positives and negatives as stated in HPI PMFSH Past Medical History Source: nursing notes reviewed Medical History Depression HTN (hypertension) Social History Social History Household Members: None Alcohol intake: never Patient Tobacco Use Status: Never used Tobacco Smoked in Last 30 Days: No Use of substances other than those prescribed or required for medical reasons: No Advance Directives: No Advance Directives Information Provided: Yes Physical Exam ED Vital Signs: Vital Signs - 24 hr 01/09/23 08:21 01/09/23 09:57 Temperature 97.7 F 97.6 F Pulse Rate 76 59 Respiratory Rate 18 14 Blood Pressure 155/103 H 142/95 H Pulse Oximetry 93 97 Oxygen Delivery Method Room Air Room Air BMI result Body Mass Index 54.1 VITAL SIGNS: Reviewed. GENERAL: elevated BMI, Well developed, well nourished, in no acute distress. HEAD: Normocephalic/atraumatic EYES: PERRLA, EOMI LUNGS: Normal breath sounds. No adventitious sounds or accessory muscle use. SpO2<93> CARDIOVASCULAR: Regular rate and rhythm without noted murmurs ABDOMEN: Soft, non-tender, non-distended with bowel sounds. MUSCULOSKELETAL: No tenderness, deformities, or effusions noted on gross inspection. EXTREMITIES: No cyanosis, clubbing or edema. SKIN: Inspection of the skin reveals no rashes NEUROLOGIC: Alert and oriented x 4. Strength and sensation to light touch were grossly intact x 4. Medical Decision Making Medical Decision Making [facility] Narrative: 0836: 52-year-old male with left-sided abdominal discomfort, will rule out renal colic, diverticulitis, UTI. I reviewed all investigations and my interpretation is that this is musculoskeletal nature as there is no evidence of infection, renal colic, UTI. There is noted rib fractures at 6 and 7 that are healing, this may be contributing to patient's pain. He was provided with combination analgesics and otherwise discharged home in stable condition. Differential Diagnosis Please see the discussion above Lab Data Please see the discussion above 01/09/23 08:41 01/09/23 08:41 Labs: Lab Results 01/09/23 01/09/23 01/09/23 Range/Units 08:40 08:41 08:41 WBC 10.0 (4.8-10.8) X10*3/uL RBC 4.59 L (4.60-5.80) X10*6/uL Hgb 14.6 (14.0-18.0) g/dl Hct 43.8 (42.0-52.0) % MCV 95.4 (80.0-98.0) fL MCH 31.8 (27.0-33.0) pg MCHC 33.3 (31.0-36.0) g/dl RDW 11.7 (11.0-16.0) % Plt Count 243 (160-400) X10*3/uL MPV 10.2 (9.4-12.4) fL Immature Gran % (Auto) 0.4 (0.0-0.4) % Neut % (Auto) 71.9 (45-73) % Lymph % (Auto) 19.2 L (20-40) % [place] % (Auto) 5.6 (2-11) % Eos % (Auto) 2.4 (0-4) % Baso % (Auto) 0.5 (0-2) % Lymph # (Auto) 1.9 (1.2-4.9) X10*3/uL [place] # (Auto) 0.6 (0.1-1.2) X10*3/uL Eos # (Auto) 0.2 (0.0-0.4) X10*3/uL Baso # (Auto) 0.1 (0.0-0.2) X10*3/uL Abs Immat Gran (auto) 0.04 H (0.00-0.03) X10*3/uL Absolute Neuts (auto) 7.2 (2.0-8.3) x10*3/uL Absolute Nucleated RBC 0.000 (0.0-0.012) X10*3/uL Nucleated RBC % (auto) 0.0 (0.0-0.2) /100WBC Sodium 141 (135-145) mmol/L Potassium 4.0 (3.3-5.1) mmol/L Chloride 105 (96-108) mmol/L Carbon Dioxide 24 (22-29) mmol/L Anion Gap 16 (12-20) BUN 14 (9-16) mg/dL Creatinine 0.87 (0.5-1.4) mg/dL Estim Creat Clear Calc 167.9 Estimated GFR > 60 Random Glucose 103 (60-115) mg/dL Calcium 9.4 (8.4-10.2) mg/dL Total Bilirubin 1.0 (0.0-1.0) mg/dL AST 25 (5-37) U/L ALT 31 (0-40) U/L Alkaline Phosphatase 106 (39-117) U/L Total Protein 7.6 (6.5-8.0) g/dL Albumin 4.2 (3.5-5.0) g/dL Urine Color Yellow Urine Appearance Clear Urine pH 5.5 (5.0-9.0) Ur Specific [place] 1.020 (1.005-1.025) Urine Protein Trace (Neg-Trace) mg/dL Urine Glucose (UA) Negative (Negative) mg/dL Urine Ketones Negative (Negative) mg/dL Urine Blood Trace H (Negative) Urine Nitrite Negative (Negative) Ur Leukocyte Esterase Negative (Negative) Urine RBC 0-2 (0-2) /HPF Urine WBC 0-5 (0-5) /HPF Ur Squamous Epith Cells 0-2 (0-2) /HPF Urine Bacteria None Seen (None Seen) Hyaline Casts 0-2 (0-2) /LPF Radiology Impression Radiologist Impression: my interpretation is in agreement with radiology's impression of the imaging study. External Record Review External record reviewed: Outpatient record and Prior outpatient labs Chronic Conditions Patient?s care impacted by: Hypertension Discharge Plan Discharge Clinical Impression: Fracture of rib with routine healing, Musculoskeletal pain Patient Disposition: Home, Self-Care Instructions: Musculoskeletal Pain (ED) Additional Instructions: 1. Reanudar todos los medicamentos caseros seg?n lo prescrito. 2. Recomendar Tylenol/ibuprofeno de venta harrison seg?n sea necesario para controlar el dolor. Puede considerar un parche de lidoca?na de venta harrison y aplicarlo en el ?meri de m?xima sensibilidad. 3. Seguimiento con gil proveedor de atenci?n primaria. Regrese a la sukhdev de emergencias si los s?ntomas empeoran. 1. Resume all home medications as prescribed. 2. Recommend cfza-uax-wmetdal Tylenol/ ibuprofen as needed for pain control. May consider xtoe-inc-pblanmi lidocaine patch and apply to area of maximal tenderness. 3. Follow-up with your primary care provider. Return to the ER for any worsening symptoms. Prescriptions: No Action ofloxacin 0.3 % drops 10 drp otic (ears) DAILY 7 Days Qty: 10 0RF levofloxacin 500 mg tablet 500 mg PO DAILY Qty: 10 0RF Print Language: [place]
[2023-01-09 08:46] LABS: MANUAL DIFF FLAG NO
[2023-01-09 08:48] LABS: Basophils Absolute Auto 0.1 X10*3/uL (0.0-0.2); Basophils Percent Auto 0.5 % (0-2); Eosinophils Absolute Auto 0.2 X10*3/uL (0.0-0.4); Eosinophils Percent Auto 2.4 % (0-4); Hematocrit 43.8 % (42.0-52.0); Hemoglobin 14.6 g/dl (14.0-18.0); Imm Gran Abs Auto 0.04 X10*3/uL (0.00-0.03); Imm Gran Pct Auto 0.4 % (0.0-0.4); Lymphocytes Absolute Auto 1.9 X10*3/uL (1.2-4.9); Lymphocytes Percent Auto 19.2 % (20-40); Mean Corpuscular HGB Conc 33.3 g/dl (31.0-36.0); Mean Corpuscular Hemoglobin 31.8 pg (27.0-33.0); Mean Corpuscular Volume 95.4 fL (80.0-98.0); Mean Platelet Volume 10.2 fL (9.4-12.4); Monocytes Absolute Auto 0.6 X10*3/uL (0.1-1.2); Monocytes Percent Auto 5.6 % (2-11); Neutrophils Absolute Auto 7.2 x10*3/uL (2.0-8.3); Neutrophils Percent Auto 71.9 % (45-73); Platelet Count 243 X10*3/uL (160-400); Red Blood Count 4.59 X10*6/uL (4.60-5.80); Red Cell Distribution Width 11.7 % (11.0-16.0)
[2023-01-09 09:01] LABS: Appearance Urine Clear; Color Urine Yellow; Glucose Urine UA Negative (Negative); Leukocyte Esterase Urine Negative (Negative); Nitrite Urine Negative (Negative); PH 5.5 (5.0-9.0); UMIC TRIGGER UACC YES; Urine Blood Trace (Negative); Urine Ketones Negative (Negative); Urine Protein Trace mg/dL (Neg-Trace)
[2023-01-09 09:04] LABS: Bacteria Urine None Seen (None Seen); Hyaline Casts Urine 0-2 /LPF (0-2); RBC Urine 0-2 /HPF (0-2); Squamous Epithelial Cell Urine 0-2 /HPF (0-2); WBC Urine 0-5 /HPF (0-5)
[2023-01-09 09:06] LABS: Alanine Aminotransferase 31 U/L (0-40); Albumin Level 4.2 g/dL (3.5-5.0); Alkaline Phosphatase 106 U/L (39-117); Anion Gap 16 (12-20); Aspartate Amino Transferase 25 U/L (5-37); Blood Urea Nitrogen 14 mg/dL (9-16); Calcium 9.4 mg/dL (8.4-10.2); Carbon Dioxide 24 mmol/L (22-29); Chloride 105 mmol/L (96-108); Creatinine Clr Calc Pharmacy 167.9; Estimated Glomerular Filt Rate > 60; Glucose Random 103 mg/dL (60-115); Sodium 141 mmol/L (135-145); Total Protein 7.6 g/dL (6.5-8.0)
--- NOTE | 2023-01-09 09:52 | PC.NURSE ---
Patient on stretcher with at bedside. Patient calm and cooperative. Waiting for CT at this time.
[2023-01-09 09:57] VITALS: BP 142/95; PULSE 59; RESP 14; TEMP 36.4; O2SAT 97
--- NOTE | 2023-01-09 11:24 | PC.NURSE ---
patient had CT scan; awaiting results at this time.
--- NOTE | 2023-01-09 11:28 | PC.NURSE ---
patient ambulated to bathroom accompanied by .
[2023-01-09 12:00] VITALS: BP 155/95; PULSE 57; RESP 14; TEMP 36.1; O2SAT 95
[2023-01-09] MEDS: Acetaminophen 325 MG TABLET 975 MG PO (12:09)
[2023-01-09] MEDS: Lidocaine 4 % Patch ADH..PATCH 1 PATCH TRANSDERMA (12:09)
[2023-01-09] MEDS: Ibuprofen 400 MG TABLET PO (12:10)
== END 2023-01-09 12:19 | disposition home or self-care (01) ==
PROVIDERS: Emergency Provider Student in an Organized Health Care Education/Training Program
DX: S22.32XA Fracture of one rib, left side, initial encounter for closed fracture (principal); R10.32 Left lower quadrant pain; X58.XXXA Exposure to other specified factors, initial encounter; Y93.9 Activity, unspecified; Y92.9 Unspecified place or not applicable; Y99.9 Unspecified external cause status; Z79.899 Other long term (current) drug therapy
CPT/HCPCS: 36415; 74176; 80053; 81001; 81003; 85025; 99284

== ENCOUNTER 2023-03-21 08:48 | Emergency (ER) | payer MEDICAID, SELFPAY ==
--- NOTE | ~2023-03-21 | CT_ITS ---
EXAMINATION: CT ABDOMEN AND PELVIS WITHOUT CONTRAST CLINICAL INFORMATION: Left flank pain radiating to abdomen. COMPARISON: CT abdomen and pelvis 01/09/2023 TECHNIQUE: Multidetector volumetric imaging was performed from the superior aspect of the liver through the pubic symphysis. Sagittal and coronal reformatted images were obtained on the technologist's workstation. This CT examination was performed using dose optimization techniques as appropriate, variously including the following: *Automated exposure control *Adjustment of mA and/or kV according to patient size (this includes techniques or standardized protocols for targeted exams where dose is matched to indication/reason for exam; i.e. extremities or head) *Use of iterative reconstruction technique DLP: 1382 mGy-cm FINDINGS: LUNG BASES: Minimal atelectatic changes seen in both lower lobes. LIVER, GALLBLADDER, AND BILIARY TREE: The liver is normal in size, shape, and diffuse hypo-attenuation. No focal hepatic lesion or biliary ductal dilatation is present. The gallbladder is unremarkable with no evidence of radiopaque gallstones, gallbladder wall thickening, or obvious pericholecystic inflammatory changes. PANCREAS: Unremarkable. SPLEEN: Unremarkable. ADRENAL GLANDS: Unremarkable. KIDNEYS AND URETERS: The kidneys are normal in size, shape, and attenuation. There is a 2 mm nonobstructive calculi upper pole calyx left kidney without caliectasis or hydronephrosis. BLADDER: Unremarkable. GASTROINTESTINAL TRACT: There is scattered stool and gas seen throughout the colon without significant distention. The small bowel loops are normal caliber. Appendix is normal caliber. ABDOMINAL WALL: No significant hernia is appreciated. LYMPH NODES: Normal. VASCULAR: Unremarkable. PELVIC VISCERA: Unremarkable. OSSEOUS STRUCTURES: There are degenerative vacuum disc changes with spondylosis lower dorsal spine. No aggressive lytic or sclerotic process seen. CT/CT abdomen pelvis wo IV con IMPRESSION: Nonobstructive small radiopaque calculi upper pole left kidney. It is new since the previous exam 01/09/2023. Mild constipation. Mild hepatic steatosis. Fleischner guidelines were followed.
[2023-03-21 09:07] VITALS: BP 148/86; PULSE 89; RESP 18; TEMP 36.6; O2SAT 94; BMI 39.6
[2023-03-21 09:20] LABS: Hematocrit 44.2 % (42.0-52.0); Hemoglobin 14.6 g/dl (14.0-18.0); Mean Corpuscular Hemoglobin 32.1 pg (27.0-33.0); Mean Corpuscular Volume 97.1 fL (80.0-98.0); Mean Platelet Volume 10.3 fL (9.4-12.4); Platelet Count 243 X10*3/uL (160-400); Red Blood Count 4.55 X10*6/uL (4.60-5.80); Red Cell Distribution Width 11.8 % (11.0-16.0)
[2023-03-21 09:37] LABS: Anion Gap 14 (12-20); Blood Urea Nitrogen 17 mg/dL (9-16); Calcium 9.5 mg/dL (8.4-10.2); Carbon Dioxide 24 mmol/L (22-29); Chloride 106 mmol/L (96-108); Creatinine Clr Calc Pharmacy 143.8; Estimated Glomerular Filt Rate > 60; Glucose Random 122 mg/dL (60-115); Potassium 4.1 mmol/L (3.3-5.1); Sodium 140 mmol/L (135-145)
--- NOTE | 2023-03-21 09:40 | ED_ITS ---
HPI - Abdominal Pain General Chief Complaint: Abdominal Pain Stated Complaint: abd pain Time Seen by Provider: 03/21/23 09:18 Source: patient Mode of arrival: ambulatory Limitations: no limitations History of Present Illness HPI narrative: 52-year-old male presents with left flank pain and left-sided upper abdominal pain. Symptoms started 2-3 weeks ago. The pain is intermittent. Pain is currently 7/10. The pain appears start the left flank and radiates anteriorly. It is not associated with nausea vomiting. Denies any fevers or chills. He has had urinary frequency but denies any hematuria. He also complains of some dysuria that is burning in nature. He is taking no medications at home for symptoms. Symptoms do appear to be worse with movement however. There are no clear relieving features. Symptoms are new in onset. Related Data Previous Rx's Medication Instructions Recorded levofloxacin 500 mg tablet 500 mg PO DAILY #10 tabs 08/16/22 ofloxacin 0.3 % ear drops 10 drp otic (ears) DAILY 7 days 08/16/22 #10 mL cyclobenzaprine 10 mg tablet 10 mg PO TID PRN muscle spasm #14 03/21/23 tabs meloxicam 15 mg tablet 15 mg PO DAILY #14 tabs 03/21/23 Allergies Allergy/AdvReac Type Severity Reaction Status Date / Time No Known Allergies Allergy Verified 08/16/22 08:34 [No Known Allergies*] REPLACED BY [facility] Past Medical History Medical History Depression HTN (hypertension) Social History Social History Household Members: None Alcohol intake: never Patient Tobacco Use Status: Never used Tobacco Advance Directives: No Advance Directives Information Provided: No Physical Exam ED Vital Signs: Vital Signs - 24 hr 03/21/23 09:07 Temperature 97.9 F Pulse Rate 89 Respiratory Rate 18 Blood Pressure 148/86 H Pulse Oximetry 94 Oxygen Delivery Method Room Air BMI result Body Mass Index 39.6 GEN: Well developed, no acute distress, alert, oriented HEENT: Normocephalic, atraumatic, normal external ears, nose appears normal, no oropharyngeal edema or exudates Eyes: Normal to appearance Neck: Supple, no lymphadenopathy Respiratory: Talks in complete sentences, no respiratory distress, clear to auscultation bilaterally Cardiovascular: Regular rate and rhythm, no murmurs rubs or gallops Abdomen: Soft, left upper abdominal tenderness, nondistended, no guarding, no rebound Back: No CVA tenderness Extremities: No clubbing cyanosis or edema Neurologic: No focal neurologic deficits, cranial nerves 2-12 intact, strength is 5/5 bilaterally Skin: No rash Course Course Course Narrative: 52-year-old male presents with moderate to severe left-sided abdominal and back pain. Patient will have a CT scan the abdomen and pelvis to rule out a plethora of differential diagnoses. I also provide the patient with Toradol for analgesia. Will rule out urinary tract infection with urinalysis. Will re- evaluate the patient frequently Reevaluation(s) Reevaluation #1: Patient's pain is currently a 4/10. There is no evidence urinary tract infection or obstructive uropathy. Patient's pain is most likely muscular in nature. We discussed results and discharge plan. Patient will follow-up with his primary care provider in 1 week. For worsening symptoms, uncontrolled pain, patient will return for re-evaluation. Time: 11:13 Medical Decision Making Medical Decision Making [facility] Narrative: 52-year-old male presents with left-sided abdominal flank pain. Differential diagnosis could include renal colic, biliary colic IBD, IBS, gastroenteritis, pyelonephritis, nephrolithiasis, diverticulitis, gastroenteritis, gastritis, ulcer. Will obtain a CT scan the abdomen pelvis to rule out multiple diagnoses as well as to hopefully diagnose the etiology of his symptoms. Will obtain urinalysis to rule out hematuria and urinary tract infection. Will check laboratory analysis for CBC, chemistry 2 cysts in other comorbid conditions. Patient will be given IV fluids and analgesia in the meantime. Will have frequent re-evaluations. Disposition pending full workup. Differential Diagnosis Differential Diagnoses: The differential diagnosis associated with the presentation includes (See above) Admission/Observation Consideration of admission/observation: Escalation of care including admission/observation considered Lab Data [facility] Lab Attestation statement: I reviewed the patient's lab results. 03/21/23 09:14 03/21/23 09:14 Labs: Lab Results 03/21/23 03/21/23 03/21/23 Range/Units 09:14 09:14 10:00 WBC 11.0 H (4.8-10.8) X10*3/uL RBC 4.55 L (4.60-5.80) X10*6/uL Hgb 14.6 (14.0-18.0) g/dl Hct 44.2 (42.0-52.0) % MCV 97.1 (80.0-98.0) fL MCH 32.1 (27.0-33.0) pg MCHC 33.0 (31.0-36.0) g/dl RDW 11.8 (11.0-16.0) % Plt Count 243 (160-400) X10*3/uL MPV 10.3 (9.4-12.4) fL Absolute Nucleated RBC 0.000 (0.0-0.012) X10*3/uL Nucleated RBC % (auto) 0.0 (0.0-0.2) /100WBC Sodium 140 (135-145) mmol/L Potassium 4.1 (3.3-5.1) mmol/L Chloride 106 (96-108) mmol/L Carbon Dioxide 24 (22-29) mmol/L Anion Gap 14 (12-20) BUN 17 H (9-16) mg/dL Creatinine 0.85 (0.5-1.4) mg/dL Estim Creat Clear Calc 143.8 Estimated GFR > 60 Random Glucose 122 H (60-115) mg/dL Calcium 9.5 (8.4-10.2) mg/dL Urine Color Yellow Urine Appearance Clear Urine pH 5.5 (5.0-9.0) Ur Specific [place] 1.025 (1.005-1.025) Urine Protein Trace (Neg-Trace) mg/dL Urine Glucose (UA) Negative (Negative) mg/dL Urine Ketones Negative (Negative) mg/dL Urine Blood Negative (Negative) Urine Nitrite Negative (Negative) Ur Leukocyte Esterase Negative (Negative) Independent Interpretation I performed an independent interpretation of an: CT Scan (ABD: NAD) Radiology Impression Discussion of test interpretation with radiology: I have reviewed the radiologist's reading. ( CT/CT abdomen pelvis wo IV con IMPRESSION: Nonobstructive small radiopaque calculi upper pole left kidney. It is new since the previous exam 01/09/2023. Mild constipation. Mild hepatic steatosis. Fleischner guidelines were followed. Dictated By:Shabbir Espinoza MDSigned By:) Independent Historian Clinical information obtained from an independent historian. History obtained from or confirmed by: Spouse Medications Administered Discontinued Medications Generic Name Dose Route Start Last Admin Trade Name Freq PRN Reason Stop Dose Admin Sodium Chloride 1,000 mls @ 999 mls/hr 03/21/23 09:45 03/21/23 09:58 Ns IV 03/21/23 10:45 999 mls/hr .Q1H1M NIRAJ Administration Ketorolac Tromethamine 15 mg 03/21/23 09:35 03/21/23 09:58 Ketorolac Tromethamine 15 Mg/Ml Vial IVPUSH 03/21/23 09:36 15 mg ONCE ONE Administration Discharge Plan Discharge Clinical Impression: Abdominal pain, Back pain Patient Disposition: Home, Self-Care Instructions: Abdominal Pain (ED), Back Pain (ED) Prescriptions: New meloxicam 15 mg tablet 15 mg PO DAILY Qty: 14 0RF cyclobenzaprine 10 mg tablet 10 mg PO TID PRN (Reason: muscle spasm) Qty: 14 0RF No Action ofloxacin 0.3 % drops 10 drp otic (ears) DAILY 7 Days Qty: 10 0RF levofloxacin 500 mg tablet 500 mg PO DAILY Qty: 10 0RF Referrals: Aurelio Barajas NP [Primary Care Provider] - 1 week Print Language: Portuguese
[2023-03-21] MEDS: Ketorolac Tromethamine 15 MG/ML VIAL IVPUSH (09:58)
[2023-03-21] MEDS: 0.9 % Sodium Chloride 1,000 ML 999 ML IV (09:58)
[2023-03-21 10:07] LABS: Appearance Urine Clear; Color Urine Yellow; Glucose Urine UA Negative (Negative); Leukocyte Esterase Urine Negative (Negative); Nitrite Urine Negative (Negative); PH 5.5 (5.0-9.0); Specific Gravity - Urine 1.025 (1.005-1.025); Urine Blood Negative (Negative); Urine Ketones Negative (Negative); Urine Protein Trace mg/dL (Neg-Trace)
== END 2023-03-21 11:49 | disposition home or self-care (01) ==
PROVIDERS: Emergency Provider Emergency Medicine; PCP Registered Nurse
DX: R10.9 Unspecified abdominal pain (principal); I10 Essential (primary) hypertension; Z79.899 Other long term (current) drug therapy
CPT/HCPCS: 36415; 74176; 80048; 81003; 85027; 96374; 99284; J1885

== ENCOUNTER 2023-12-21 09:45 | Outpatient (AMB) | payer MEDICAID, SELFPAY ==
[2023-12-21 09:47] VITALS: BP 156/93; PULSE 87; BMI 54.2
--- NOTE | 2023-12-21 09:47 | MHC.OFFVIS ---
Intake Vital Signs 12/21/23 09:47 Height 6 ft 1 in Weight 410 lb 8.011 oz BMI 54.2 BP 156/93 H Blood Pressure Location Lt brachial Position Sitting Pulse 87 Pulse Source Pulse Oximeter Intake Visit Reasons: Colon Cancer Screening Intake Note: Pt presents to the office today for a colonoscopy screening.He has never had a colonoscopy in the past. Pt denies any GI concerns at this time. Allergies No Known Allergies [No Known Allergies*] Allergy (Verified 12/21/23 09:50) HPI Colon Cancer Screening HPI Details 53 year old?male with past medical history of hypertension, and anxiety, diverticular disease is here today for pre colonoscopy screening.? Patient was sent to us by his PCP.? This is his first colonoscopy screening.? Patient denies any gastrointestinal symptoms in the past or at present.? However patient does report to be constipated. Denies any personal or family history of gastrointestinal disease, colon polyps, or cancer.? Denies history of difficulty with sedation or anesthesia in the past.? Negative for history of sleep apnea.? Denies any history of cardiac, renal, pulmonary, or hepatic disease.?? No history of infectious? diseases like hepatitis A, B, C, HIV or tuberculosis.? Patient is not on any anticoagulation therapy. [facility] Medical History HTN (hypertension) Depression Surgical History (Updated 12/21/23 @ 09:51 by Joana Barajas MA) History of hernia repair Family History (Updated 12/21/23 @ 09:52 by Joana Barajas MA) Mother Skin cancer Social History Household Members: None Alcohol intake: never Patient Tobacco Use Status: Never used Tobacco Review of Systems Const Denies weight gain and Denies weight loss ENT Reports no additional complaints, Denies dysphagia and Denies odynophagia Card Reports no additional complaints Resp Reports no additional complaints GI Denies abdominal pain, Denies belching, Denies melena, Denies bloating, Denies change in bowel habits, Reports constipation, Denies dysphagia, Denies excessive flatus, Denies dyspepsia, Denies heartburn, Denies diarrhea, Denies loose stools, Denies nausea, Denies odynophagia and Denies vomiting Reports no additional complaints Musc Reports no additional complaints Neuro Reports no additional complaints Psych Reports no additional complaints Endo Reports no additional complaints Physical Exam Vital Signs: Last Vital Signs Pulse 87 12/21/23 09:47 BP 156/93 H 12/21/23 09:47 BMI result Body Mass Index 54.2 Const General: healthy appearing, no acute distress and well developed Nutritional Appearance: well nourished Orientation/consciousness: patient oriented x3 Resp Effort & Inspection: normal respiratory effort, able to speak in complete sentences, no tracheal deviation and symmetric chest movement Auscultation: clear to auscultation bilaterally Cardio Rate: regular rate GI Inspection: Yes normal to inspection and No distended Palpation (GI): Soft to palpation, not firm, nontender and No hepatosplenomegaly present Auscultation: normal bowel sounds General: Yes no CVA tenderness Back/Spine/Pelvis Back: no CVA tenderness Skin General skin exam: elasticity normal, turgor normal and dry skin Neuro General: patient oriented x3 Psych Appearance: grossly normal Mental Status: mental status grossly normal Assessment & Plan Assessment & Plan (1) Screen for colon cancer: Code(s): Z12.11 - Encounter for screening for malignant neoplasm of colon (2) Constipation: Code(s): K59.00 - Constipation, unspecified Qualifiers: Constipation type: slow transit constipation Qualified Code(s): K59.01 - Slow transit constipation Plan Patient denies any GI, cardiac or respiratory symptoms.? However he does reports to be constipated. Will start him on Dulcolax 2 tablets every evening. Denies any issues with anesthesia in the past.? Denies any history of sleep apnea.? No history infectious diseases in the past or present.? Not on any anticoagulation therapy.? No family or personal history of colon cancer or polyps.? Patient denies melena, hematochezia, unintentional weight loss or ribbon like stools.? Discussed at length the pre-procedure,? prep, diet & medications as well as what to expect prior, during and after the procedure.?? Stressed the importance of good bowel prep. Patient is morbidly obese and will require bariatric bed for the procedure. ?Recommended the use of Vaseline or Calmoseptine OTC & baby wipes with bowel movements to promote comfort.? ?Patient verbalizes understanding and agrees to plan of care.? He was given the opportunity to ask questions and all questions answered.? We will see him after the procedure.? Medications: New bisacodyl (Dulcolax (bisacodyl)) 10 mg (2 x 5 mg) PO BEDTIME 180 tabs 4RF polyethylene glycol 3350 (Miralax) As directed by gastroenterology department at [facility] 238 grams PO ONCE 238 grams 0RF Z12.11 - Encounter for screening for malignant neoplasm of colon Coding Level of Care Code New Pt Level 3 (65654) Diagnoses Screen for colon cancer Z12.11 Slow transit constipation K59.01 Constipation type: slow transit constipation Time Spent (min) 40 Comment 30 minutes spent with patient and additional 10 minutes spent reviewing his records
== END 2023-12-21 10:30 | disposition home or self-care (01) ==
PROVIDERS: PCP Registered Nurse; Visit Provider Nurse Practitioner Family
DX: Z12.11 Encounter for screening for malignant neoplasm of colon (principal); K59.01 Slow transit constipation; Z01.818 Encounter for other preprocedural examination
CPT/HCPCS: 99203

== ENCOUNTER → 2023-12-21 09:45 | Outpatient (BNVA) | payer MEDICAID, SELFPAY | PROVIDERS: PCP Registered Nurse; Visit Provider Nurse Practitioner Family | DX: Z12.11 Encounter for screening for malignant neoplasm of colon (principal); K59.01 Slow transit constipation | CPT/HCPCS: 99212 ==

== ENCOUNTER 2024-04-06 11:41 | Emergency (ER) | payer MEDICAID, SELFPAY ==
[2024-04-06] VITALS (7 sets, daily range): BP systolic 132–225; BP diastolic 84–137; PULSE 70–85; RESP 14–20; TEMP 36.1–36.6; O2SAT 93–95; BMI 55.4
--- NOTE | ~2024-04-06 | XR_ITS ---
EXAMINATION: XR CHEST CLINICAL INFORMATION: Chest pain COMPARISON: Previous chest x-ray most recent July 2022 TECHNIQUE: 2 views of the chest were obtained. FINDINGS: The cardiac silhouette is enlarged but stable. Hilar and mediastinal contours are unremarkable. There is subsegmental atelectasis at the lung bases. Lungs are otherwise clear. No pleural effusion or pneumothorax. There are degenerative changes of the spine. XR/XR chest 2V IMPRESSION: Stable enlargement of the cardiac silhouette. Subsegmental atelectasis at the lung bases.
--- NOTE | 2024-04-06 11:43 | ECG_ITS ---
Test Reason : CHEST PAIN Blood Pressure : / mmHG Vent. Rate : 093 BPM Atrial Rate : 093 BPM P-R Int : 152 ms QRS Dur : 108 ms QT Int : 366 ms P-R-T Axes : 046 -61 036 degrees QTc Int : 455 ms Normal sinus rhythm Left anterior fascicular block Abnormal ECG When compared with ECG of 16-AUG-2022 08:31, No significant change was found Referred By: Jessika Nielsen Electronically Signed By:MORGAN HOLLIS MD
[2024-04-06 12:03] LABS: MANUAL DIFF FLAG NO
[2024-04-06 12:10] LABS: Basophils Percent Auto 0.5 % (0-2); Eosinophils Absolute Auto 0.2 X10*3/uL (0.0-0.4); Eosinophils Percent Auto 2.6 % (0-4); Hematocrit 40.4 % (42.0-52.0); Hemoglobin 13.6 g/dl (14.0-18.0); Imm Gran Abs Auto 0.03 X10*3/uL (0.00-0.03); Imm Gran Pct Auto 0.4 % (0.0-0.4); Lymphocytes Absolute Auto 1.7 X10*3/uL (1.2-4.9); Lymphocytes Percent Auto 22.2 % (20-40); Mean Corpuscular HGB Conc 33.7 g/dl (31.0-36.0); Mean Corpuscular Hemoglobin 32.4 pg (27.0-33.0); Mean Corpuscular Volume 96.2 fL (80.0-98.0); Mean Platelet Volume 10.6 fL (9.4-12.4); Monocytes Absolute Auto 0.6 X10*3/uL (0.1-1.2); Neutrophils Absolute Auto 5.2 x10*3/uL (2.0-8.3); Neutrophils Percent Auto 66.3 % (45-73); Platelet Count 214 X10*3/uL (160-400); Red Cell Distribution Width 11.9 % (11.0-16.0); White Blood Count 7.8 X10*3/uL (4.8-10.8)
[2024-04-06 12:11] LABS: INTERNATIONAL NORM RATIO 1.2 (0.9-1.1); Prothrombin Time 14.3 SEC (11.1-13.3)
--- NOTE | 2024-04-06 12:16 | ED.CHESTPAIN ---
HPI - Chest Pain General Chief Complaint: Dyspnea Stated Complaint: CP, back pain Time Seen by Provider: 04/06/24 17:41 Source: patient Mode of arrival: ambulatory Limitations: no limitations History of Present Illness ED Provider: jude MG narrative: Patient is a 53 years old smoker COPD sleep apnea not using CPAP comes here for exertional dyspnea for last few weeks which is getting worse with chest tightness patient has gained about 100 lb in last 6 months blood pressure usually elevated when he checks at home no cough patient has not seen PCP for a while no fever no chills patient never had sleep studies done in the past Related Data Previous Rx's ?Medication ?Instructions ?Recorded cyclobenzaprine 10 mg tablet 10 mg PO TID PRN muscle spasm #14 03/21/23 tabs meloxicam 15 mg tablet 15 mg PO DAILY #14 tabs 03/21/23 bisacodyl 5 mg tablet,delayed 10 mg (2 x 5 mg) PO BEDTIME #180 12/21/23 release (Dulcolax (bisacodyl)) tabs polyethylene glycol 3350 17 238 g PO ONCE #238 grams 12/21/23 gram/dose oral powder (Miralax) albuterol sulfate 90 mcg/actuation 2 puff inhalation Q4-6H PRN 04/06/24 aerosol inhaler (ProAir HFA) shortness of breath or wheezing #8.5 grams amlodipine 5 mg tablet 5 mg PO DAILY #90 tabs 04/06/24 hydrochlorothiazide 50 mg tablet 50 mg PO QAM #90 tabs 04/06/24 Allergies Allergy/AdvReac Type Severity Reaction Status Date / Time No Known Allergies Allergy Verified 04/06/24 12:20 [No Known Allergies*] Review of Systems Review of Systems: Yes all other systems are reviewed and are negative PMF Past Medical History Medical History HTN (hypertension) Depression Surgical History History of hernia repair Family History Family History Mother Skin cancer Social History Social History Household Members: None Alcohol intake: never Patient Tobacco Use Status: Never used Tobacco Advance Directives: No Advance Directives Information Provided: No Physical Exam Vital Signs: Vital Signs: Last Vital Signs Temp 97.9 F 04/06/24 20:51 Pulse 74 04/06/24 20:51 Resp 14 04/06/24 20:51 BP 132/84 04/06/24 20:51 Pulse Ox 94 04/06/24 20:51 O2 Del Method Room Air 04/06/24 20:51 BMI result Body Mass Index 55.4 Appearance: Alert. Oriented X3. No acute distress. Obese Eyes: No pallor or icterus ENT: Pharynx normal. Oral Mucosa moist Neck: Normal inspection. Neck supple. CVS: Normal heart rate and rhythm. Pulses normal. Respiratory: No respiratory distress. Equal air entry bilateral, bilateral prolonged expiration Abdomen: Soft and nontender. Bowel sounds are present, no mass palpable, no CVA tenderness Skin: Skin warm and dry. Normal skin color. Normal skin turgor. Extremities: 2+ lower extremity edema. No calf tenderness Neuro: Oriented X 3. No motor deficit. Course Course Course Narrative: This is an RME performed by Kaya Nielsen, [employer]: Additional HPI, ROS, PE not included below will be deferred to primary provider. Patient is a 53-year-old male who presents to the emergency department for evaluation of chest pain. Reports dyspnea on exertion with with associated chest swelling of the bilateral lower extremities. This has been occurring for a few months, however it is occurring more frequently and for longer periods. He states he was seen here for similar symptoms, but has not followed up primary care doctor. Physical exam: Alert and oriented x3, no respiratory distress, speaking clear full sentences, LSCTA, normal heart sounds. He is hypertensive on arrival, reports compliance with his antihypertensives today. Plan: Labs, EKG, CXR Medications Administered Discontinued Medications Generic Name Dose Route Start Last Admin Trade Name Freq PRN Reason Stop Dose Admin Amlodipine Besylate 5 mg 04/06/24 18:41 04/06/24 18:47 Amlodipine Besylate 5 Mg Tablet PO 04/06/24 18:42 5 mg ONCE ONE Administration Protocol Albuterol Sulfate 2.5 mg/ 0 mg 04/06/24 17:57 04/06/24 18:13 Albuterol/Ipratropium 3 ml INHALE 04/06/24 17:58 1 dose ONCE ONE Administration Furosemide 40 mg 04/06/24 17:57 04/06/24 18:35 Furosemide 40 Mg/4 Ml Vial IVPUSH 04/06/24 17:58 40 mg ONCE ONE Administration Protocol Nitroglycerin 1 inch 04/06/24 17:59 04/06/24 18:41 Nitroglycerin 2 % Oint 1 Gm Packet TRANSDERMA 04/06/24 18:00 1 inch ONCE ONE Administration Medical Decision Making Medical Decision Making [facility] Narrative: Patient with sleep apnea/morbidly obese comes in with atypical chest 2 sets of troponin negative EKG without any ischemic changes no signs of heart failure patient's symptoms likely from sleep apnea. Initially when patient came blood pressure was elevated improved after medication discharge patient advised to continue his lisinopril advised to follow with lung specialist for sleep studies and management of his chronic lung condition patient advised to lose weight Differential Diagnosis Differential Diagnoses: The differential diagnosis associated with the presentation includes Admission/Observation Consideration of admission/observation: Escalation of care including admission/observation considered Lab Data [facility] Lab Attestation statement: I reviewed the patient's lab results. 04/06/24 11:57 04/06/24 11:57 Labs: Lab Results 04/06/24 04/06/24 04/06/24 Range/Units 11:57 18:18 18:41 WBC 7.8 (4.8-10.8) X10*3/uL RBC 4.20 L (4.60-5.80) X10*6/uL Hgb 13.6 L (14.0-18.0) g/dl Hct 40.4 L (42.0-52.0) % MCV 96.2 (80.0-98.0) fL MCH 32.4 (27.0-33.0) pg MCHC 33.7 (31.0-36.0) g/dl RDW 11.9 (11.0-16.0) % Plt Count 214 (160-400) X10*3/uL MPV 10.6 (9.4-12.4) fL Immature Gran % (Auto) 0.4 (0.0-0.4) % Neut % (Auto) 66.3 (45-73) % Lymph % (Auto) 22.2 (20-40) % [place] % (Auto) 8.0 (2-11) % Eos % (Auto) 2.6 (0-4) % Baso % (Auto) 0.5 (0-2) % Lymph # (Auto) 1.7 (1.2-4.9) X10*3/uL [place] # (Auto) 0.6 (0.1-1.2) X10*3/uL Eos # (Auto) 0.2 (0.0-0.4) X10*3/uL Baso # (Auto) 0.0 (0.0-0.2) X10*3/uL Abs Immat Gran (auto) 0.03 (0.00-0.03) X10*3/uL Absolute Neuts (auto) 5.2 (2.0-8.3) x10*3/uL Absolute Nucleated RBC 0.000 (0.0-0.012) X10*3/uL Nucleated RBC % (auto) 0.0 (0.0-0.2) /100WBC PT 14.3 H (11.1-13.3) SEC INR 1.2 H (0.9-1.1) Sodium 143 (135-145) mmol/L Potassium 3.5 (3.3-5.1) mmol/L Chloride 109 H (96-108) mmol/L Carbon Dioxide 27 (22-29) mmol/L Anion Gap 11 L (12-20) BUN 15 (9-16) mg/dL Creatinine 0.77 (0.5-1.4) mg/dL Estim Creat Clear Calc TNP Estimated GFR > 60 Random Glucose 150 H (60-115) mg/dL Calcium 9.1 (8.4-10.2) mg/dL Magnesium 1.8 (1.6-2.6) mg/dL Total Bilirubin 0.8 (0.0-1.0) mg/dL AST 39 H (5-37) U/L ALT 50 H (0-40) U/L Alkaline Phosphatase 90 (39-117) U/L Troponin I High Sens 3.6 5.5 D (<3.5-35.0) ng/L B-Natriuretic Peptide 24 (<100) pg/mL Total Protein 7.3 (6.5-8.0) g/dL Albumin 4.0 (3.5-5.0) g/dL Lipase 40 (8-78) U/L Urine Color Yellow Urine Appearance Clear Urine pH 6.5 (5.0-9.0) Ur Specific [place] 1.025 (1.005-1.025) Urine Protein Negative (Neg-Trace) mg/dL Urine Glucose (UA) Negative (Negative) mg/dL Urine Ketones Negative (Negative) mg/dL Urine Blood Negative (Negative) Urine Nitrite Negative (Negative) Ur Leukocyte Esterase Negative (Negative) Influenza Type A (PCR) NEGATIVE (Negative) Influenza Type B (PCR) NEGATIVE (Negative) RSV RNA Qual (PCR) NEGATIVE (Negative) SARS-CoV-2 RNA (RT-PCR) NEGATIVE (Negative) Independent Interpretation I performed an independent interpretation of an: EKG and Plain X-Ray Radiology Impression Discussion of test interpretation with radiology: I have reviewed the radiologist's reading. Discharge Plan Discharge Clinical Impression: Obstructive sleep apnea, Acute exacerbation of chronic obstructive airways disease, Hypertension Patient Disposition: Home, Self-Care Instructions: Sleep Apnea (DC), COPD (Chronic Obstructive Pulmonary Disease) (DC), Chronic Hypertension (ED) Additional Instructions: Decrease salt intake and try to reduce weight Follow with lung specialist for sleep studies Use albuterol inhaler 2 puffs every 4-6 hours as needed Start taking amlodipine 5 mg daily along with your lisinopril Prescriptions: New amlodipine 5 mg tablet 5 mg PO DAILY Qty: 90 0RF albuterol sulfate [ProAir HFA] 90 mcg/actuation HFA aerosol inhaler 2 puff inhalation Q4-6H PRN (Reason: shortness of breath or wheezing) Qty: 8.5 0RF hydrochlorothiazide 50 mg tablet 50 mg PO QAM Qty: 90 0RF No Action meloxicam 15 mg tablet 15 mg PO DAILY Qty: 14 0RF cyclobenzaprine 10 mg tablet 10 mg PO TID PRN (Reason: muscle spasm) Qty: 14 0RF bisacodyl [Dulcolax (bisacodyl)] 5 mg tablet,delayed release (DR/EC) 10 mg PO BEDTIME Qty: 180 4RF polyethylene glycol 3350 [Miralax] 17 gram/dose powder 238 g PO ONCE Qty: 238 0RF Rx Instructions: As directed by gastroenterology department at [facility] Referrals: Howard Montalvo MD [Physician] - 2 weeks Interventions: ED Discharge Assessment Last Done: 04/06/24 20:51 Discharge Date/Time: 04/06/24 20:53 Print Language: Latvian
[2024-04-06 12:20] LABS: Alanine Aminotransferase 50 U/L (0-40); Alkaline Phosphatase 90 U/L (39-117); Anion Gap 11 (12-20); Aspartate Amino Transferase 39 U/L (5-37); Bilirubin Total 0.8 mg/dL (0.0-1.0); Blood Urea Nitrogen 15 mg/dL (9-16); Calcium 9.1 mg/dL (8.4-10.2); Carbon Dioxide 27 mmol/L (22-29); Chloride 109 mmol/L (96-108); Estimated Glomerular Filt Rate > 60; Glucose Random 150 mg/dL (60-115); Lipase 40 U/L (8-78); Magnesium 1.8 mg/dL (1.6-2.6); Potassium 3.5 mmol/L (3.3-5.1); Sodium 143 mmol/L (135-145); Total Protein 7.3 g/dL (6.5-8.0)
[2024-04-06 12:25] LABS: B Type Natriuretic Peptide 24 pg/mL (<100)
[2024-04-06 12:27] LABS: Troponin-I High Sensitivity 3.6 ng/L (<3.5-35.0)
[2024-04-06 12:43] LABS: Influenza A PCR NEGATIVE (Negative); Influenza B PCR NEGATIVE (Negative); Resp Syncy Virus RNA Qual PCR NEGATIVE (Negative); SARS COV2 PCR INHOUSE NEGATIVE (Negative)
[2024-04-06] MEDS: Albuterol Sulfate 2.5 MG, Albuterol/Iprat 2.5/0.5MG 3 ML 3 ML INHALE (18:13)
[2024-04-06] MEDS: Furosemide 40 MG/4 ML VIAL IVPUSH (18:35)
[2024-04-06] MEDS: Nitroglycerin 2 % Oint 1 GM Packet 1 INCH TRANSDERMA (18:41)
[2024-04-06 18:47] LABS: Appearance Urine Clear; Color Urine Yellow; Glucose Urine UA Negative (Negative); Leukocyte Esterase Urine Negative (Negative); Nitrite Urine Negative (Negative); PH 6.5 (5.0-9.0); Specific Gravity - Urine 1.025 (1.005-1.025); Urine Blood Negative (Negative); Urine Ketones Negative (Negative); Urine Protein Negative (Neg-Trace)
[2024-04-06] MEDS: amLODIPine Besylate 5 MG TABLET PO (18:47)
--- NOTE | 2024-04-06 18:48 | PC.NURSE ---
pt a&ox3, iv inserted, labs previously drawn, pvc monitor applied nsr, pt medicated for htn, call cunningham within reach, will continue to monitor
[2024-04-06 18:54] LABS: Troponin-I High Sensitivity 5.5 ng/L (<3.5-35.0)
--- NOTE | 2024-04-06 20:02 | PC.NURSE ---
Spoke to Dr. Herrera regarding the patients blood pressure. Blood pressure 144/81.
== END 2024-04-06 20:53 | disposition home or self-care (01) ==
PROVIDERS: Nurse Practitioner Family; Emergency Provider Internal Medicine
DX: R07.89 Other chest pain (principal); J44.9 Chronic obstructive pulmonary disease, unspecified; G47.33 Obstructive sleep apnea (adult) (pediatric); R06.02 Shortness of breath; I10 Essential (primary) hypertension; Z79.899 Other long term (current) drug therapy; Z03.818 Encounter for observation for suspected exposure to other biological agents ruled out
CPT/HCPCS: 0241U; 36415; 71046; 80053; 81003; 83690; 83735; 83880; 84484; 85025; 85610; 93005; 94640; 96374; 99285; J1940

== ENCOUNTER → 2024-04-06 11:43 | Outpatient (BNV) | payer MEDICAID, SELFPAY | PROVIDERS: Emergency Provider Internal Medicine; Visit Provider Internal Medicine Cardiovascular Disease | DX: R94.31 Abnormal electrocardiogram [ECG] [EKG] (principal) | CPT/HCPCS: 93010 ==

== ENCOUNTER 2024-07-09 10:29 | Outpatient (AMB) | payer MEDICAID, SELFPAY ==
--- NOTE | 2024-07-09 10:48 | A.OFFVIS_ITS ---
Vital Signs 07/09/24 10:49 Height 6 ft 1 in Weight 392 lb 6.765 oz BMI 51.8 BP 124/78 Blood Pressure Location Lt radial Position Sitting Intake Visit Reasons: Sleep Apnea/COPD Intake Note: pt is here as a new patient, for ALFREDITO, never had cpap in past, he snores, daytime somnolence, in past gasping for air at night has occurred., and also COPD, he does short of breath with stairs and only cough sometimes Airconditioning Drafting Officer Required: Yes Airconditioning Drafting Officer Services: Airconditioning Drafting Officer Present Airconditioning Drafting Officer Name: Jodi Allergies No Known Allergies [No Known Allergies*] Allergy (Verified 07/09/24 11:28) Medication List - Last Reconciled 07/09/24 by Paul Leach MD albuterol sulfate 90 mcg/actuation (ProAir HFA) 2 puffs inhalation Q4-6H PRN amlodipine 5 mg PO DAILY bisacodyl (Dulcolax (bisacodyl)) 10 mg (2 x 5 mg) PO BEDTIME budesonide-formoterol 160-4.5 mcg/actuation (Symbicort) 2 puffs inhalation BID citalopram 20 mg PO DAILY cyclobenzaprine 10 mg PO TID PRN gabapentin 300 mg PO Q8H hydrochlorothiazide 50 mg PO QAM lisinopril 20 mg PO DAILY meloxicam 15 mg PO DAILY polyethylene glycol 3350 (Miralax) 238 grams PO ONCE quetiapine 200 mg PO DAILY tamsulosin 0.4 mg PO DAILY Do you need a note to return to daycare/school/sports/work: No HPI HPI Sleep Apnea/COPD: Details: 53 years old gentleman is being seen for the 1st time. He is morbidly obese . He states that he has gained weight since about 5 or 6 years ago after he got . At the same time he has not been working, and remains mostly sedentary. 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 Slowly and gradually over the past few years he has developed the following complaints. Poor sleep at night but he spends about 8 hours in the bed. He does have snoring as told by the family members. He wakes up tired and un-refreshed in the morning. He tends to fall asleep during the daytime, while he is sitting and reading, watching TV, or just sitting in actively. He tends to fall asleep early in the evening. Also complains of getting short of breath if he goes up hill or climbs stairs, but not at rest. He does not have any attacks of wheezing. As he has been prescribed albuterol inhaler he does try to use it off and on without much help. [facility] Medical History (Updated 07/09/24 @ 11:40 by Paul Leach MD) Dyspnea on exertion Somnolence, daytime Morbid obesity HTN (hypertension) Depression Surgical History History of hernia repair Family History Mother Skin cancer Social History Household Members: None Alcohol intake: never Patient Tobacco Use Status: Never used Tobacco Review of Systems Const All systems reviewed & are unremarkable except as noted in HPI and below Eyes Reports no additional complaints ENT Reports no additional complaints Card Denies chest pain, Denies irregular heart rhythm and Denies leg edema Resp Reports as per HPI GI Reports no additional complaints Reports no additional complaints Musc Reports back pain and Reports myalgias Skin/Breast Reports system reviewed and no additional complaints, except as documented Neuro Reports no additional complaints Psych Reports depression Endo Reports no additional complaints Aller/Immun Reports no additional complaints Physical Exam Vital Signs: Last Vital Signs BP 124/78 07/09/24 10:49 BMI result Body Mass Index 51.8 He is grossly overweight with rounded face and short and obese neck Const General: comfortable, no acute distress, alert and awake Orientation/consciousness: patient oriented x3 HEENT Head: Yes normal to inspection General nose exam: No nasal polyps present and No nasal discharge present Face and sinus: Yes sinuses nontender Mouth: oropharynx abnormals (Very narrow oropharynx, Mallampati class 4) Throat: Yes posterior oropharynx normal Eyes General: appearance normal, both eyes and all related structures Neck Neck: Yes normal visual inspection, Yes no lymphadenopathy, Yes trachea midline, Yes no JVD and Yes other (Neck circumference 22 in) Thyroid: Thyroid normal Chest Chest palpation & inspection: normal inspection of the chest, normal palpation of entire chest wall and no tenderness Resp Other: Percussion note is not perceptible because of the thick chest wall. Breath sounds are diminished throughout the chest especially over the basilar areas. No wheezes or crepitations are heard Cardio Palpation: PMI not normal (Not palpable) Rate: regular rate Rhythm: regular rhythm Heart sounds: no gallops and no murmurs Peripheral pulses: Peripheral pulses 2+ throughout GI Palpation (GI): Soft to palpation, nontender, No hepatosplenomegaly present, no masses and Other GI palpation findings present Auscultation: normal bowel sounds Back/Spine/Pelvis Thoracic/Lumbar Spine: thoracic and lumbar spine normal to inspection and thoraco-lumbar ROM limited Skin General skin exam: no rashes or lesions noted Neuro General: patient oriented x3 and no focal motor deficits Cranial nerves: Yes CN's II-XII intact bilaterally Extrem General: Yes normal to inspection, Yes no clubbing, cyanosis or edema and Yes no calf tenderness Psych Appearance: grossly normal and well kempt Speech and movement: Normal speech and movement present Assessment & Plan Assessment & Plan (1) Morbid obesity: Comment: Morbid obesity is very obvious in his case, he has gradually put on weight in the last five to six years. Code(s): E66.01 - Morbid (severe) obesity due to excess calories Category: Medical Plan: I did start the discussion about weight problem. He needs to manage his diet and also do some daily exercise. The best thing is that he should join some weight management program. (2) Somnolence, daytime: Comment: He has the un-refreshing sleep at night, and remains sleepy during the daytime Code(s): R40.0 - Somnolence Category: Medical Plan: He is to be worked up for obstructive sleep apnea Home-based sleep study is ordered . Patient educated about obstructive sleep apnea. (3) Dyspnea on exertion: Comment: Dyspnea on exertion is most probably related to his gross obesity/ restrictive lung disease Code(s): R06.09 - Other forms of dyspnea Category: Medical Plan: Explained to him that his dyspnea on exertion is related to his being obese PULMONARY FUNCTION TEST IS ORDERED TO CHECK FOR RESTRICTIVE/OBSTRUCTIVE DISORDER. Orders: Orders RT home sleep study Today E66.01 - Morbid (severe) obesity due to excess calories, R40.0 - Somnolence PFT pulmonary function test Today E66.01 - Morbid (severe) obesity due to excess calories, R06.09 - Other forms of dyspnea Coding Level of Care Code New Pt Level 4 (27809) Diagnoses Morbid obesity E66.01 Somnolence, daytime R40.0 Dyspnea on exertion R06.09
[2024-07-09 10:49] VITALS: BP 124/78; BMI 51.8
== END 2024-07-09 13:20 | disposition home or self-care (01) ==
PROVIDERS: PCP Internal Medicine; Referring Provider Internal Medicine; Visit Provider Internal Medicine
DX: E66.01 Morbid (severe) obesity due to excess calories (principal); R40.0 Somnolence; R06.09 Other forms of dyspnea
CPT/HCPCS: 99204

== ENCOUNTER → 2024-07-09 10:29 | Outpatient (BNVA) | payer MEDICAID, SELFPAY | PROVIDERS: PCP Internal Medicine; Referring Provider Internal Medicine; Visit Provider Internal Medicine | DX: R40.0 Somnolence (principal); R06.09 Other forms of dyspnea; E66.01 Morbid (severe) obesity due to excess calories; Z68.43 Body mass index [BMI] 50.0-59.9, adult | CPT/HCPCS: 99202 ==

== ENCOUNTER 2024-07-17 07:46 | Day surgery (SDC) | payer MEDICAID, SELFPAY ==
--- NOTE | 2024-07-16 13:33 | HO.ANESPROP2 ---
HPI - Anesthesia Eval Consult details Narrative: 53yo M for Colonoscopy BMI: 54 PMFSH Active Problems Active Problems: All Active Problems Dyspnea on exertion (Acute) Somnolence, daytime (Acute) Morbid obesity (Acute) Past Medical History Medical History ALFREDITO (obstructive sleep apnea) Dyspnea on exertion Somnolence, daytime Morbid obesity HTN (hypertension) Depression Family History Family History Mother Skin cancer Surgical History Surgical History History of hernia repair Social History Social History Household Members: None Alcohol intake: never Patient Tobacco Use Status: Never used Tobacco Meds Allergies Allergy/AdvReac Type Severity Reaction Status Date / Time No Known Allergies Allergy Verified 07/09/24 11:28 [No Known Allergies*] Home Medications ?Medication ?Instructions ?Recorded ?Confirmed ?Last Taken ?Type budesonide-formoterol HFA 160 2 puff inhalation BID 07/09/24 07/09/24 Unknown History mcg-4.5 mcg/actuation aerosol inhaler (Symbicort) citalopram 20 mg tablet 20 mg PO DAILY 07/09/24 07/09/24 Unknown History gabapentin 300 mg capsule 300 mg PO Q8H 07/09/24 07/09/24 Unknown History lisinopril 20 mg tablet 20 mg PO DAILY 07/09/24 07/09/24 07/17/24 History quetiapine 200 mg tablet 200 mg PO DAILY 07/09/24 07/09/24 Unknown History tamsulosin 0.4 mg capsule 0.4 mg PO DAILY 07/09/24 07/09/24 Unknown History Exam Pertinent Lab Results Pertinent Lab Results: Laboratory Tests 04/06/24 11:57 WBC 7.8 Hgb 13.6 L Hct 40.4 L Plt Count 214 Sodium 143 Potassium 3.5 Chloride 109 H Carbon Dioxide 27 BUN 15 Creatinine 0.77 Narrative Narrative: EKG 03/2024 Vent. Rate : 093 BPM Atrial Rate : 093 BPM P-R Int : 152 ms QRS Dur : 108 ms QT Int : 366 ms P-R-T Axes : 046 -61 036 degrees QTc Int : 455 ms Normal sinus rhythm Left anterior fascicular block Abnormal ECG When compared with ECG of 16-AUG-2022 08:31, No significant change was found Assessment and Plan Assessment Anesthesia Assessment: Chart Reviewed
[2024-07-17 09:53] VITALS: BP 159/83; PULSE 79; RESP 20; TEMP 37; O2SAT 96; BMI 52.1
[2024-07-17] MEDS: Lactated Ringers 1,000 ML 100 ML IVCONT (10:07)
--- NOTE | 2024-07-17 10:13 | P.HPSUR_ITS ---
Pre-Procedural Eval Section A - 24 Hr Update-Section A only Date of Service: 07/17/24 Section B - Complete if H&P > 30 days Chief Complaint: screening Details of Present Illness: brother colon cancer Relevant Family History (Specify if Yes): Yes Relevant Social History: Other (specify) Present Medications: see Short Stay Collaborative assessment Medical History: Significant History (Dyspnea on exertion Somnolence, daytime Morbid obesity HTN (hypertension) Depression) History of Previous Operations: Relevant previous surgery/procedure and date(s) (History of hernia repair) Allergies: Allergies Allergy/AdvReac Type Severity Reaction Status Date / Time No Known Allergies Allergy Verified 07/09/24 11:28 [No Known Allergies*] Review of Systems Sugical H&P ROS: Negative: Constitution, Cardiovascular, Respiratory, Neurologi jacob, Psychiatric, Hem-Onc, Allergic/Immunologic, Gastrointestinal, Genitourinary, Musculoskeletal, Integumentary, Endocrine and Eyes/Ears/Nose/Throat Exam Surgical H&P Exam: Normal: HEENT, Normal: Heart, Normal: Lungs, Normal: Extremities, Normal: Abdomen, Normal: Skin and Normal: Neurological Exam Comment: high bmi Plan Diagnosis/Plan: Unchanged I have reviewed the history and physical and performed a pertinent physical examination on my patient. No changes have occurred unless specified. Time Spent With Patient Time: Total time managing care of this patient today ____ minutes.
--- NOTE | 2024-07-17 11:19 | HO.OPN-COLON ---
Colonoscopy Operative Note Operative Note Date of Service: 07/17/24 Narrative: Operative Information Procedure Description: Colonoscopy Indication: screening Anesthesia: MAC COLONOSCOPY Instrument: Olympus variable stiffness ADULT scope 190L Colonoscopy Monitoring: Vital signs and clinical assessment, continuous EKG monitoring, Pulse oximetry, Carbon Dioxide monitoring and blood pressure monitoring were done throughout the procedure. Colon withdrawal time was 10 minutes. Procedure: The patient was placed in the left lateral decubitis position and pre-procedure medications were administered. After a digital rectal examination of the ano-rectum, the video colonoscope was inserted into the rectum and advanced through the colon to the cecum/TI. The colonoscope was slowly withdrawn in a retrograde panoramic fashion and the colon mucosa was carefully examined including a retroflexed view of the rectum. Findings and interventions are described below. Procedure Difficulty: moderate, pressure applied from behind by pulling on abdomen Findings: Terminal Ileum-not intubated due to looping Cecum:normal Ascending Colon: normal Transverse Colon -normal Descending Colon:normal Sigmoid Colon: 8-9 mm sessile polyp removed with cold snare Rectum: Retroflexion with small internal hemorrhoids seen, grade I, 9-10 mm sessile polyp removed with cold snare Anorectum - normal Intervention: cold snare Colon preparation: [place] Bowel Preparation Scale Right colon; 1-2 Transverse colon: 2 Left colon; 2 (0 = Unprepared colon segment with mucosa not seen due to solid stool that cannot be cleared. 1 = Portion of mucosa of the colon segment seen, but other areas of the colon segment not well seen due to staining, residual stool and/or opaque liquid. 2 = Minor amount of residual staining, small fragments of stool and/or opaque liquid, but mucosa of colon segment seen well. 3 = Entire mucosa of colon segment seen well with no residual staining, small fragments of stool or opaque liquid) Impression and Post Procedure Diagnosis: colon polyps internal hemorrhoids Plan: High fiber diet leaflet Avoid straining at stool, epsom salts and sitz bath, anusol supps or cream Repeat Colonoscopy in 2-3 years due to fair prep on right or earlier if clinically indicated Above findings were reviewed with the patient and relevant handouts were provided if indicated.
[2024-07-17 11:26] VITALS: BP 113/65; PULSE 82; RESP 16; TEMP 36.8; O2SAT 98
--- NOTE | 2024-07-17 11:32 | P.CONAN_ITS ---
[facility] Active Problems Active Problems: All Active Problems Dyspnea on exertion (Acute) Somnolence, daytime (Acute) Morbid obesity (Acute) Past Medical History Medical History ALFREDITO (obstructive sleep apnea) Dyspnea on exertion Somnolence, daytime Morbid obesity HTN (hypertension) Depression Functional capacity: independent ambulation Family History Family History Mother Skin cancer Family history of problems with anesthesia: No Surgical History Surgical History History of hernia repair History of Problems with Anesthesia: No Social History Social History Household Members: None Alcohol intake: never Patient Tobacco Use Status: Never used Tobacco Have you been hit, kicked, punched, or otherwise hurt by someone within the past year? If so, by whom?: No Are you DNR?: No Advance Directives: No Advance Directives Information Provided: Yes Nutrition Risks: No Nutritional Risk Poor oral hygiene: No Meds Allergies Allergy/AdvReac Type Severity Reaction Status Date / Time No Known Allergies Allergy Verified 07/09/24 11:28 [No Known Allergies*] Active Medications: Current Medications Lactated Ringer's (Lr) 1,000 mls @ 100 mls/hr IVCONT .Q10H NIRAJ Last Admin: 07/17/24 10:07 Dose: 100 mls/hr Home Medications ?Medication ?Instructions ?Recorded ?Confirmed ?Last Taken ?Type budesonide-formoterol HFA 160 2 puff inhalation BID 07/09/24 07/09/24 Unknown History mcg-4.5 mcg/actuation aerosol inhaler (Symbicort) citalopram 20 mg tablet 20 mg PO DAILY 07/09/24 07/09/24 Unknown History gabapentin 300 mg capsule 300 mg PO Q8H 07/09/24 07/09/24 Unknown History lisinopril 20 mg tablet 20 mg PO DAILY 07/09/24 07/09/24 07/17/24 History quetiapine 200 mg tablet 200 mg PO DAILY 07/09/24 07/09/24 Unknown History tamsulosin 0.4 mg capsule 0.4 mg PO DAILY 07/09/24 07/09/24 Unknown History Exam Height,Weight and Vital Signs: Height 6 ft 1 in Weight 179.305 kg Last Vital Signs Temp 98.6 F 07/17/24 09:53 Pulse 79 07/17/24 09:53 Resp 20 07/17/24 09:53 BP 159/83 H 07/17/24 09:53 Pulse Ox 96 07/17/24 09:53 O2 Del Method Room Air 07/17/24 09:53 Airway Mallampati Class: IV TM Dist: >3cm Neck ROM: Full Heart: RRR Lungs: CTA Assessment and Plan Assessment Anesthesia Assessment: Anesthesia Plan Discussed and Chart Reviewed Final Anesthetic Review Family History of Problems with Anesthesia: No History of Problems with Anesthesia: No NPO: Yes ASA Class: III Final Preanesthetic Review: Meds/Allgs Chart Reviewed, Consent Obtained/Reviewed and Anes Risks/Benef Reviewed Patient Risk: Intermediate Procedure Risk: Low Anesthetic Plan Anesthetic Plan: MAC: Disposition: Standard PACU
[2024-07-17 11:42] VITALS: BP 117/75; PULSE 73; RESP 18; TEMP 36.8; O2SAT 100
== END 2024-07-17 12:29 | disposition home or self-care (01) ==
PROVIDERS: PCP Student in an Organized Health Care Education/Training Program; Visit Provider Internal Medicine Gastroenterology
PROC: 0DJD8ZZ Inspection of Lower Intestinal Tract, Via Natural or Artificial Opening Endoscopic (ICD-10-PCS; CPT 45378; principal; 2024-07-17 11:00)
DX: Z12.11 Encounter for screening for malignant neoplasm of colon (principal); K63.5 Polyp of colon; K64.8 Other hemorrhoids; K56.2 Volvulus; I10 Essential (primary) hypertension; R06.00 Dyspnea, unspecified; G47.33 Obstructive sleep apnea (adult) (pediatric); R40.0 Somnolence; E66.01 Morbid (severe) obesity due to excess calories; Z68.43 Body mass index [BMI] 50.0-59.9, adult
CPT/HCPCS: 45385; 88305; J2704

== ENCOUNTER → 2024-07-17 07:46 | Outpatient (BNV) | payer MEDICAID, SELFPAY | PROVIDERS: PCP Student in an Organized Health Care Education/Training Program; Visit Provider Internal Medicine Gastroenterology | DX: Z12.11 Encounter for screening for malignant neoplasm of colon (principal); D12.5 Benign neoplasm of sigmoid colon; D12.8 Benign neoplasm of rectum; K64.8 Other hemorrhoids | CPT/HCPCS: 45385 ==

== ENCOUNTER 2024-08-01 12:54 | Outpatient (REF) | payer MEDICAID, SELFPAY ==
--- NOTE | 2024-08-01 14:03 | PFT_ITS ---
Flows: FEV1: 91 % of predicted at 3.74 L FVC: 84 % of predicted at 4.46 L FEV1/FVC: 84 % Bronchodilator response: Absent Volumes: Lung volume testing is inaccurate as patient is unable to stay awake to for instructions Diffusion capacity: Mildly decreased, corrects to normal after adjustment for alveolar ventilation. Impression: No obstructive ventilatory defect. Spirometry suggests restrictive ventilatory defect. Lung volume testing inaccurate as patient unable to stay awake for instructions. Decreased diffusion capacity suggests emphysema. MTDD
== END 2024-08-01 12:55 | disposition home or self-care (01) ==
LOC: HO.RESP 12:54
PROVIDERS: PCP Student in an Organized Health Care Education/Training Program; Visit Provider Internal Medicine
DX: R06.09 Other forms of dyspnea (principal); E66.01 Morbid (severe) obesity due to excess calories
CPT/HCPCS: 94010; 94640; 94727; 94729

== ENCOUNTER → 2024-08-01 14:03 | Outpatient (BNV) | payer MEDICAID, SELFPAY | PROVIDERS: PCP Student in an Organized Health Care Education/Training Program; Visit Provider Internal Medicine Pulmonary Disease | DX: R06.09 Other forms of dyspnea (principal) | CPT/HCPCS: 94060; 94727; 94729 ==

== ENCOUNTER → 2024-08-22 13:24 | Outpatient (REF) | payer MEDICAID, SELFPAY | LOC: HO.SL 13:24 | PROVIDERS: PCP Student in an Organized Health Care Education/Training Program; Visit Provider Internal Medicine | DX: G47.33 Obstructive sleep apnea (adult) (pediatric) (principal); E66.01 Morbid (severe) obesity due to excess calories; R40.0 Somnolence | CPT/HCPCS: 95806 ==

== ENCOUNTER → 2024-08-22 13:48 | Outpatient (BNV) | payer MEDICAID, SELFPAY | PROVIDERS: PCP Student in an Organized Health Care Education/Training Program; Visit Provider Internal Medicine | DX: G47.33 Obstructive sleep apnea (adult) (pediatric) (principal) | CPT/HCPCS: 95806 ==

== ENCOUNTER 2024-08-29 13:11 | Outpatient (AMB) | payer MEDICAID, SELFPAY ==
--- NOTE | 2024-08-29 13:22 | A.OFFVIS_ITS ---
Vital Signs 08/29/24 13:23 Height 6 ft 1 in Weight 385 lb BMI 50.8 BP 112/72 Blood Pressure Location Lt radial Position Sitting Pulse 90 Pulse Source Pulse Oximeter Pulse Oximetry (%) 93 Oxygen Delivery Method Room Air Intake Visit Reasons: Sleep Apnea/Sleep Study Follow Up Intake Note: pt is here for follow up and states he had pft and sleep study Subject Scientific Research Required: Yes Subject Scientific Research Services: Subject Scientific Research Present Subject Scientific Research Name: [id number] Allergies No Known Allergies [No Known Allergies*] Allergy (Verified 08/29/24 13:39) Medication List - Last Reconciled 08/29/24 by Paul Leach MD albuterol sulfate 90 mcg/actuation (ProAir HFA) 2 puffs inhalation Q4-6H PRN amlodipine 5 mg PO DAILY budesonide-formoterol 160-4.5 mcg/actuation (Symbicort) 2 puffs inhalation BID citalopram 20 mg PO DAILY cyclobenzaprine 10 mg PO TID PRN gabapentin 300 mg PO Q8H hydrochlorothiazide 50 mg PO QAM lisinopril 20 mg PO DAILY quetiapine 200 mg PO DAILY tamsulosin 0.4 mg PO DAILY Do you need a note to return to daycare/school/sports/work: No HPI HPI Sleep Apnea/Sleep Study Follow Up: Details: THIS 53 YEARS OLD GENTLEMAN A CASE OF SUPER MORBID OBESITY, AND SYMPTOMS OF OBSTRUCTIVE SLEEP APNEA. ALSO HAS HISTORY OF SHORTNESS OF BREATH ON EXERTION WITH INTERMITTENT BOUTS OF WHEEZING AND COUGH. HE HAS HAD HOME-BASED SLEEP STUDY AND ALSO PULMONARY FUNCTION TEST. HE IS HERE FOR FOLLOW-UP. BASICALLY HE HAS DIFFICULTY IN WALKING AROUND DUE TO SHORTNESS OF BREATH, AND HE HAS DIFFICULTY IN SLEEPING AT NIGHT, DUE TO FREQUENT AWAKENING AND CHOKING EPISODES. THE RESULTS OF PFT AND SLEEP STUDY WILL BE DESCRIBED BELOW. [facility] Medical History (Updated 08/29/24 @ 13:48 by Paul Leach MD) Nocturnal hypoxemia due to obesity ALFREDITO (obstructive sleep apnea) Dyspnea on exertion Somnolence, daytime Morbid obesity HTN (hypertension) Depression Surgical History History of hernia repair Family History Mother Skin cancer Social History Household Members: None Alcohol intake: never Patient Tobacco Use Status: Never used Tobacco Review of Systems Const All systems reviewed & are unremarkable except as noted in HPI and below Eyes Reports no additional complaints ENT Reports no additional complaints Card Denies chest pain, Denies irregular heart rhythm and Denies leg edema Resp Reports as per HPI GI Reports no additional complaints Reports no additional complaints Musc Reports back pain and Reports myalgias Skin/Breast Reports system reviewed and no additional complaints, except as documented Neuro Reports no additional complaints Psych Reports depression Endo Reports no additional complaints Aller/Immun Reports no additional complaints Physical Exam Vital Signs: Last Vital Signs Pulse 90 08/29/24 13:23 BP 112/72 08/29/24 13:23 Pulse Ox 93 08/29/24 13:23 Oxygen Delivery Method Room Air 08/29/24 13:23 BMI result Body Mass Index 50.8 He is grossly overweight with rounded face and short and obese neck Const General: comfortable, no acute distress, alert and awake Orientation/consciousness: patient oriented x3 HEENT Head: Yes normal to inspection General nose exam: No nasal polyps present and No nasal discharge present Face and sinus: Yes sinuses nontender Mouth: oropharynx abnormals (Very narrow oropharynx, Mallampati class 4) Throat: Yes posterior oropharynx normal Eyes General: appearance normal, both eyes and all related structures Neck Neck: Yes normal visual inspection, Yes no lymphadenopathy, Yes trachea midline, Yes no JVD and Yes other (Neck circumference 22 in) Thyroid: Thyroid normal Chest Chest palpation & inspection: normal inspection of the chest, normal palpation of entire chest wall and no tenderness Resp Other: Percussion note is not perceptible because of the thick chest wall. Breath sounds are diminished throughout the chest especially over the basilar areas. No wheezes or crepitations are heard Cardio Palpation: PMI not normal (Not palpable) Rate: regular rate Rhythm: regular rhythm Heart sounds: no gallops and no murmurs Peripheral pulses: Peripheral pulses 2+ throughout GI Palpation (GI): Soft to palpation, nontender, No hepatosplenomegaly present, no masses and Other GI palpation findings present Auscultation: normal bowel sounds Back/Spine/Pelvis Thoracic/Lumbar Spine: thoracic and lumbar spine normal to inspection and thoraco-lumbar ROM limited Skin General skin exam: no rashes or lesions noted Neuro General: patient oriented x3 and no focal motor deficits Cranial nerves: Yes CN's II-XII intact bilaterally Extrem General: Yes normal to inspection, Yes no clubbing, cyanosis or edema and Yes no calf tenderness Psych Appearance: grossly normal and well kempt Speech and movement: Normal speech and movement present Results Reviewed Results Reviewed: PULMONARY FUNCTION TEST, ESSENTIALLY NORMAL, NO EVIDENCE OF OBSTRUCTIVE OR RESTRICTIVE PULMONARY DISORDER. THERE WAS NO SIGNIFICANT RESPONSE TO BRONCHODILATOR THERAPY. TOTAL LUNG CAPACITY AND DIFFUSION CAPACITY ARE WITHIN NORMAL RANGE. HOME-BASED SLEEP STUDY PERFORMED ON 08/22 IS GROSSLY ABNORMAL WITH TOTAL SLEEP TIME AHI 53 ASSOCIATED WITH NOCTURNAL HYPOXEMIA THROUGHOUT THE NIGHT. AVERAGE O2 SAT 89% AND O2 SAT BELOW 88% FOR 168 MINUTES. Assessment & Plan Assessment & Plan (1) Morbid obesity: Comment: Morbid obesity is very obvious in his case, he has gradually put on weight in the last five to six years. Code(s): E66.01 - Morbid (severe) obesity due to excess calories Category: Medical Plan: AGAIN DISCUSSED ABOUT NEED TO LOSE WEIGHT. (2) Somnolence, daytime: Comment: He has the un-refreshing sleep at night, and remains sleepy during the daytime THE SLEEP STUDY EXPLAINS THE REASON FOR HIS SOMNOLENCE AND THAT IS SEVERE OBSTRUCTIVE SLEEP APNEA WITH NOCTURNAL HYPOXEMIA. Code(s): R40.0 - Somnolence Category: Medical Plan: SEE UNDER ALFREDITO (3) Dyspnea on exertion: Comment: Dyspnea on exertion is most probably related to his gross obesity/ restrictive lung disease SURPRISINGLY HIS PFT IS RELATIVELY NORMAL AND DOES NOT SHOW ANY RESTRICTIVE OR OBSTRUCTIVE AIRWAY DISORDER. SO I THINK DYSPNEA ON EXERTION IS BASICALLY DUE TO HIS SUPER MORBID OBESITY. Code(s): R06.09 - Other forms of dyspnea Category: Medical Plan: ADVISED TO LOSE WEIGHT, DO DEEP BREATHING EXERCISES. MAY CUT DOWN THE USE OF SYMBICORT 160-4.5 TO ONLY ONCE A DAY., WITH THE GOAL TO STOP IT COMPLETELY. (4) Nocturnal hypoxemia due to obesity: Comment: ALONG WITH SEVERE OBSTRUCTIVE SLEEP APNEA HE HAS PERSISTENT NOCTURNAL HYPOXEMIA WITH AVERAGE O2 SAT 89%. 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 I THINK THIS WILL BE CORRECTED BY USE OF CPAP. Code(s): E66.9 - Obesity, unspecified; G47.36 - Sleep related hypoventilation in conditions classified elsewhere Category: Medical Plan: CPAP TITRATION STUDY IN THE SLEEP LAB IS PLANNED (5) ALFREDITO (obstructive sleep apnea): Comment: PER HOME SLEEP STUDY HE HAS VERY SEVERE OBSTRUCTIVE APNEA, WITH NOCTURNAL HYPOXEMIA Code(s): G47.33 - Obstructive sleep apnea (adult) (pediatric) Category: Medical Plan: BECAUSE HE HAS SEVERE ALFREDITO AND NOCTURNAL HYPOXEMIA IT IS PRUDENT TO DO CPAP TITRATION STUDY IN THE SLEEP LAB, TO DETERMINE THE OPTIMAL PRESSURE. HE MAY NEED BILEVEL PRESSURE. AND ALSO TO MAKE SURE THAT HYPOXEMIA IS CORRECTED, HE MAY NEED O2 SUPPLEMENTATION. Orders: Orders RT PSG in-lab sleep titration Today E66.9 - Obesity, unspecified, G47.33 - Obstructive sleep apnea (adult) (pediatric), G47.36 - Sleep related hypoventilation in conditions classified elsewhere, R40.0 - Somnolence Coding Level of Care Code Est Pt Level 4 (70134) Diagnoses Morbid obesity E66.01 Somnolence, daytime R40.0 Dyspnea on exertion R06.09 Nocturnal hypoxemia due to obesity E66.9; G47.36 ALFREDITO (obstructive sleep apnea) G47.33
[2024-08-29 13:23] VITALS: BP 112/72; PULSE 90; O2SAT 93; BMI 50.8
== END 2024-08-29 13:40 | disposition home or self-care (01) ==
LOC: HO.HPS 13:11
PROVIDERS: PCP Student in an Organized Health Care Education/Training Program; Visit Provider Internal Medicine
DX: E66.01 Morbid (severe) obesity due to excess calories (principal); R40.0 Somnolence; R06.09 Other forms of dyspnea; E66.9 Obesity, unspecified; G47.36 Sleep related hypoventilation in conditions classified elsewhere; G47.33 Obstructive sleep apnea (adult) (pediatric)
CPT/HCPCS: 99214

== ENCOUNTER → 2024-08-29 13:11 | Outpatient (BNVA) | payer MEDICAID, SELFPAY | PROVIDERS: PCP Student in an Organized Health Care Education/Training Program; Visit Provider Internal Medicine | DX: G47.33 Obstructive sleep apnea (adult) (pediatric) (principal); G47.36 Sleep related hypoventilation in conditions classified elsewhere; E66.01 Morbid (severe) obesity due to excess calories; R40.0 Somnolence; R06.09 Other forms of dyspnea; Z68.43 Body mass index [BMI] 50.0-59.9, adult | CPT/HCPCS: 99212 ==

== ENCOUNTER → 2024-12-06 13:59 | Outpatient (BNVA) | payer MEDICAID, SELFPAY | PROVIDERS: PCP Student in an Organized Health Care Education/Training Program; Visit Provider Internal Medicine | DX: G47.33 Obstructive sleep apnea (adult) (pediatric) (principal); G47.36 Sleep related hypoventilation in conditions classified elsewhere; E66.01 Morbid (severe) obesity due to excess calories; R06.09 Other forms of dyspnea; Z68.43 Body mass index [BMI] 50.0-59.9, adult; Z79.899 Other long term (current) drug therapy | CPT/HCPCS: 99212 ==

== ENCOUNTER 2024-12-10 09:19 | Emergency (ER) | payer MEDICAID, SELFPAY ==
--- NOTE | ~2024-12-10 | XR_ITS ---
EXAMINATION: XR FOOT, RIGHT CLINICAL INFORMATION: pain COMPARISON: None available. TECHNIQUE: AP, lateral, and oblique views of the right foot. FINDINGS: There is no fracture, dislocation, or suspicious bone lesion. There is normal alignment. Mild to moderate degenerative changes of the first MTP joint, and interphalangeal joint of the hallux. Normal plantar arch. Os trigonum. Small plantar and dorsal calcaneal spurs. Normal-appearing soft tissues. XR/XR foot RT min 3V IMPRESSION: No acute findings right foot. Degenerative changes. Electronically signed by: Doug Bautista MD 12/10/2024 10:22 AM [facility]
--- NOTE | ~2024-12-10 | XR_ITS ---
EXAMINATION: XR CHEST CLINICAL INFORMATION: sob COMPARISON: 04/06/2024. TECHNIQUE: Frontal view of the chest was obtained. FINDINGS: Cardiac silhouette is prominent and may be magnified partially. Mediastinal and hilar contours are normal. Aorta is calcified and tortuous. There is mild pulmonary hyperaeration. Minimal linear scarring or atelectasis peripheral lung bases. No discrete consolidation, effusion, or pneumothorax. No acute soft tissue or bony findings. There are spinal degenerative changes. There are old rib fractures bilaterally. XR/XR chest 1V IMPRESSION: No active pulmonary disease. No acute findings. Electronically signed by: Doug Bautista MD 12/10/2024 10:15 AM [facility]
--- NOTE | ~2024-12-10 | XR_ITS ---
EXAMINATION: XR ANKLE, RIGHT CLINICAL INFORMATION: pain COMPARISON: None available. TECHNIQUE: AP, lateral, and mortise views of the right ankle. FINDINGS: No discrete fracture, dislocation, or suspicious bone lesion. There is normal alignment. The mortise is intact. The talar dome is normal. There are mild degenerative ankle joint changes. Os trigonum. Small plantar and dorsal calcaneal spurs. Mild diffuse subcutaneous soft tissue edema is present. No joint effusion. XR/XR ankle RT min 3V IMPRESSION: No acute bony findings of the right ankle. Chronic changes. Electronically signed by: Doug Bautista MD 12/10/2024 10:18 AM [facility]
[2024-12-10 09:35] VITALS: BP 144/87; PULSE 93; RESP 22; TEMP 36.6; O2SAT 93; BMI 52.2
[2024-12-10 14:21] LABS: MANUAL DIFF FLAG NO
[2024-12-10 14:25] LABS: Basophils Percent Auto 0.3 % (0-2); Eosinophils Absolute Auto 0.2 X10*3/uL (0.0-0.4); Eosinophils Percent Auto 1.2 % (0-4); Hematocrit 44.1 % (42.0-52.0); Hemoglobin 14.8 g/dl (14.0-18.0); Imm Gran Abs Auto 0.04 X10*3/uL (0.00-0.03); Imm Gran Pct Auto 0.3 % (0.0-0.4); Lymphocytes Absolute Auto 1.5 X10*3/uL (1.2-4.9); Lymphocytes Percent Auto 12.3 % (20-40); Mean Corpuscular HGB Conc 33.6 g/dl (31.0-36.0); Mean Corpuscular Hemoglobin 32.1 pg (27.0-33.0); Mean Corpuscular Volume 95.7 fL (80.0-98.0); Mean Platelet Volume 10.8 fL (9.4-12.4); Monocytes Absolute Auto 0.9 X10*3/uL (0.1-1.2); Monocytes Percent Auto 6.8 % (2-11); Neutrophils Absolute Auto 9.9 x10*3/uL (2.0-8.3); Neutrophils Percent Auto 79.1 % (45-73); Platelet Count 262 X10*3/uL (160-400); Red Blood Count 4.61 X10*6/uL (4.60-5.80); Red Cell Distribution Width 11.4 % (11.0-16.0); White Blood Count 12.5 X10*3/uL (4.8-10.8)
[2024-12-10 14:46] LABS: Alanine Aminotransferase 31 U/L (0-40); Albumin Level 4.4 g/dL (3.5-5.0); Alkaline Phosphatase 100 U/L (39-117); Anion Gap 10 (12-20); Aspartate Amino Transferase 38 U/L (5-37); Bilirubin Direct 0.2 mg/dL (0.0-0.5); Bilirubin Total 0.8 mg/dL (0.0-1.0); Blood Urea Nitrogen 15 mg/dL (9-16); Carbon Dioxide 24 mmol/L (22-29); Chloride 109 mmol/L (96-108); Creatinine Clr Calc Pharmacy 164.2; Estimated Glomerular Filt Rate > 60; Glucose Random 89 mg/dL (60-115); Lipase 24 U/L (8-78); Sodium 139 mmol/L (135-145); Total Protein 8.7 g/dL (6.5-8.0)
[2024-12-10 14:50] LABS: B Type Natriuretic Peptide 17 pg/mL (<100)
[2024-12-10 15:17] LABS: Influenza A PCR NEGATIVE (Negative); Influenza B PCR NEGATIVE (Negative); Resp Syncy Virus RNA Qual PCR NEGATIVE (Negative); SARS COV2 PCR INHOUSE NEGATIVE (Negative)
--- NOTE | 2024-12-10 17:26 | ED_ITS ---
HPI - General Adult General Chief complaint: General Medical Stated complaint: SOB R ankle pain Time Seen by Provider: 12/10/24 17:26 Source: patient and spanish interpreter (all interactions with this patient were facilitated with an [facility] interpreter) Mode of arrival: wheelchair Limitations: language barrier (all interactions with this patient were facilitated with an [facility] interpreter) History of Present Illness ED Provider: Suzi Davidson PA-C HPI narrative: Patient is a 54 year old assigned male at with a history of COPD presenting to the emergency department today with right ankle pain and increased SOB. Patient states that over the last week and a half he has had right ankle pain without any trauma. Patient states that he is also having increased shortness of breath with exertion. Patient denies any dizziness, lightheadedness, abdominal pain, nausea, vomiting, fever, chills, blurry vision, double vision, loss of vision, chest pain, back pain, night sweats, pain with urination, increased urinary frequency, increased urinary urgency, blood in his urine or stool, syncope or a near syncopal episode, recent trauma or falls, bowel incontinence, bladder incontinence, or any other complaints at this time. Onset (ago): week(s) (1.5) Relieving factors: none Exacerbating factors: none Associated symptoms: shortness of breath and other (right ankle pain) Treatments prior to arrival: none Related Data Home Medications ?Medication ?Instructions ?Recorded ?Confirmed budesonide-formoterol HFA 160 2 puff inhalation BID 07/09/24 12/06/24 mcg-4.5 mcg/actuation aerosol inhaler (Symbicort) citalopram 20 mg tablet 20 mg PO DAILY 07/09/24 12/06/24 gabapentin 300 mg capsule 300 mg PO Q8H 07/09/24 12/06/24 lisinopril 20 mg tablet 20 mg PO DAILY 07/09/24 12/06/24 quetiapine 200 mg tablet 200 mg PO DAILY 07/09/24 12/06/24 tamsulosin 0.4 mg capsule 0.4 mg PO DAILY 07/09/24 12/06/24 Previous Rx's ?Medication ?Instructions ?Recorded cyclobenzaprine 10 mg tablet 10 mg PO TID PRN muscle spasm #14 03/21/23 tabs albuterol sulfate 90 mcg/actuation 2 puff inhalation Q4-6H PRN 04/06/24 aerosol inhaler (ProAir HFA) shortness of breath or wheezing #8.5 grams amlodipine 5 mg tablet 5 mg PO DAILY #90 tabs 04/06/24 hydrochlorothiazide 50 mg tablet 50 mg PO QAM #90 tabs 04/06/24 azithromycin 250 mg tablet See Rx Instructions PO .COMPLEX #6 12/10/24 tabs prednisone 20 mg tablet 20 mg PO DAILY 7 days #7 tabs 12/10/24 Allergies Allergy/AdvReac Type Severity Reaction Status Date / Time No Known Allergies Allergy Verified 12/10/24 09:44 [No Known Allergies*] Review of Systems 2 Constitutional: Constitutional: Reports no additional constitutional complaints, Denies chills, Denies fever(s) and Denies night sweats Eyes: Eyes: Reports no additional eye complaints, Denies blurry vision, Denies change in vision, Denies diplopia, Denies eye discharge, Denies loss of vision and Denies eye pain ENT: Denies dizziness Cardiovascular: Cardiovascular: Reports no additional cardiovascular complaints, Denies chest pain, Denies lightheadedness, Denies Loss of Consciousness and Reports dyspnea Respiratory: Respiratory: Reports no additional respiratory complaints and Reports dyspnea Gastrointestinal: Gastrointestinal: Reports no additional gastrointestinal complaints, Denies abdominal pain, Denies melena, Denies hematochezia, Denies change in bowel habits and Denies change in stool character Genitourinary: Genitourinary: Reports no additional male genitourinary complaints, Denies hematuria, Denies oliguria, Denies difficulty urinating, Denies dysuria, Denies urinary frequency, Denies urinary hesitancy, Denies urinary incontinence and Denies urinary urgency Musculoskeletal: Musculoskeletal: Reports no additional musculoskeletal complaints, Denies numbness and Denies tingling Comments: right ankle pain Neurologic: Denies dizziness, Denies loss of vision, Denies numbness and Denies tingling Psychiatric: Psychiatric: Reports no additional psychiatric complaints Endocrine: Endocrine: Reports no additional endocrine complaints Hematologic/Lymphatic: Hematologic/Lymphatic: Reports no additional hematologic/lymphatic complaints Allergic/Immunologic: Allergic/Immunologic: Reports no additional allergic/immunologic complaints PMFSH Past Medical History Attestation statement: The following information was validated with the patient. Source: old records reviewed and nursing notes reviewed Medical History Nocturnal hypoxemia due to obesity ALFREDITO (obstructive sleep apnea) Dyspnea on exertion Somnolence, daytime Morbid obesity HTN (hypertension) Depression Surgical History History of hernia repair Family History Family History Mother Skin cancer Social History Social History Household Members: None Alcohol intake: never Patient Tobacco Use Status: Never used Tobacco Advance Directives: No Advance Directives Information Provided: No Do you have a plan to hurt others: No Plan Physical Exam ED Vital Signs: Vital Signs - 24 hr 12/10/24 09:35 12/10/24 17:47 12/10/24 18:18 Temperature 97.9 F 0 F L Pulse Rate 93 79 79 Respiratory Rate 22 H 18 18 Blood Pressure 144/87 H 00/00 L Pulse Oximetry 93 Oxygen Delivery Method Room Air BMI result Body Mass Index 52.2 Const General: cooperative, no acute distress, alert and awake Nutritional Appearance: well nourished Orientation/consciousness: patient oriented x3 Limitations: no limitations HENMT Head: Yes normal to inspection and Yes atraumatic Ears: hearing grossly normal bilaterally and external ears normal General nose exam: Normal external nose present, no nasal discharge noted and no epistaxis Face and sinus: Yes normal facial exam, No abrasion and No laceration Mouth: Normal oral and palatal mucosa present, no drooling and no muffled voice Eyes General: appearance normal, both eyes and all related structures Periorbital: periorbital findings normal Eyelids: Yes eyelids normal Conjunctivae: conjunctivae normal Pupils: Equal, round and reactive pupils present EOM: EOMs intact bilaterally Neck Neck: Yes normal visual inspection, Yes full ROM and Yes no lymphadenopathy Chest Chest palpation & inspection: normal inspection of the chest Resp Effort & Inspection: normal respiratory effort and able to speak in complete sentences GI Inspection: Yes normal to inspection Neuro General: patient oriented x3, moves all extremities and CN's II-XI intact bilaterally Cranial nerves: Yes Equal, round and reactive pupils present Cognition (Neuro): normal cognition Extrem Other: pain with palpation of the right ankle joint and pain with right ankle joint ROM General: Yes normal to inspection, Yes full ROM and Yes capillary refill normal Psych Appearance: grossly normal Mental Status: mental status grossly normal Affect: normal affect Attitude: cooperative Thought process: Normal thought process present Thought content: Normal thought content present Insight: Good insight present (Psych) Medications Administered Discontinued Medications Generic Name Dose Route Start Last Admin Trade Name Elpidio PRN Reason Stop Dose Admin Albuterol Sulfate 2.5 mg/ 5 mg 12/10/24 17:43 12/10/24 17:47 Albuterol Sulfate 2.5 mg INHALE 12/10/24 17:44 5 mg ONCE ONE Administration Ketorolac Tromethamine 15 mg 12/10/24 17:49 12/10/24 18:11 Ketorolac Tromethamine 15 Mg/Ml Vial IM 12/10/24 17:50 15 mg ONCE ONE Administration Methylprednisolone Sodium Succinate 60 mg 12/10/24 17:49 12/10/24 18:12 Methylprednisolone Sod Succ 125 Mg/2 Ml Vial IM 12/10/24 17:50 60 mg ONCE ONE Administration Medical Decision Making Medical Decision Making [facility] Narrative: Patient is a 54 year old assigned male at with a history of COPD presenting to the emergency department today with right ankle pain and increased SOB. Patient's physical exam was as noted in the physical exam portion of this note. Patient's blood work showed a mildly elevated WBC count of 12.5. Patient's right foot, right ankle, and chest x-rays showed no acute process. I explained my physical exam findings as well as all test results to the patient. I answered all questions asked by the patient. Patient's clinical presentation is most consistent with right ankle pain vs. acute gout of the right ankle and COPD exacerbation vs. viral illness. I stressed the importance of the patient taking his medication as directed (either prescribed or as the over the counter packaging recommends). I stressed the importance of the patient following up with his primary care provider. I stressed the importance of the patient returning to the emergency department immediately if his symptoms were to worsen or if he were to develop any dizziness, shortness of breath, difficulty breathing, chest pain, blurry vision, loss of vision, nausea, vomiting, abdominal pain, fever, chills, back pain, or any other complaints. Patient verbalized agreement and understanding with this treatment plan and discharge. Differential Diagnosis Differential Diagnoses: The differential diagnosis associated with the presentation includes Gout Ankle sprain Ankle strain Ankle pain COPD exacerbation Viral illness COVID-19 Influenza RSV Admission/Observation Consideration of admission/observation: Escalation of care including admission/observation considered Patient would have been admitted to the hospital had his work up had any findings where hospital admission was appropriate and his clinical presentation warranted hospital admission. Lab Data [facility] Lab Attestation statement: I reviewed the patient's lab results. My interpretation of these results are in the [facility] Rationale portion of this note. 12/10/24 13:38 12/10/24 13:38 Labs: Lab Results 12/10/24 Range/Units 13:38 WBC 12.5 H (4.8-10.8) X10*3/uL RBC 4.61 (4.60-5.80) X10*6/uL Hgb 14.8 (14.0-18.0) g/dl Hct 44.1 (42.0-52.0) % MCV 95.7 (80.0-98.0) fL MCH 32.1 (27.0-33.0) pg MCHC 33.6 (31.0-36.0) g/dl RDW 11.4 (11.0-16.0) % Plt Count 262 (160-400) X10*3/uL MPV 10.8 (9.4-12.4) fL Immature Gran % (Auto) 0.3 (0.0-0.4) % Neut % (Auto) 79.1 H (45-73) % Lymph % (Auto) 12.3 L (20-40) % [place] % (Auto) 6.8 (2-11) % Eos % (Auto) 1.2 (0-4) % Baso % (Auto) 0.3 (0-2) % Lymph # (Auto) 1.5 (1.2-4.9) X10*3/uL [place] # (Auto) 0.9 (0.1-1.2) X10*3/uL Eos # (Auto) 0.2 (0.0-0.4) X10*3/uL Baso # (Auto) 0.0 (0.0-0.2) X10*3/uL Abs Immat Gran (auto) 0.04 H (0.00-0.03) X10*3/uL Absolute Neuts (auto) 9.9 H (2.0-8.3) x10*3/uL Absolute Nucleated RBC 0.000 (0.0-0.012) X10*3/uL Nucleated RBC % (auto) 0.0 (0.0-0.2) /100WBC Sodium 139 (135-145) mmol/L Potassium 4.0 (3.3-5.1) mmol/L Chloride 109 H (96-108) mmol/L Carbon Dioxide 24 (22-29) mmol/L Anion Gap 10 L (12-20) BUN 15 (9-16) mg/dL Creatinine 0.85 (0.5-1.4) mg/dL Estim Creat Clear Calc 164.2 Estimated GFR > 60 Random Glucose 89 (60-115) mg/dL Calcium 10.0 D (8.4-10.2) mg/dL Total Bilirubin 0.8 (0.0-1.0) mg/dL Direct Bilirubin 0.2 (0.0-0.5) mg/dL AST 38 H (5-37) U/L ALT 31 (0-40) U/L Alkaline Phosphatase 100 (39-117) U/L B-Natriuretic Peptide 17 (<100) pg/mL Total Protein 8.7 H (6.5-8.0) g/dL Albumin 4.4 (3.5-5.0) g/dL Lipase 24 (8-78) U/L Influenza Type A (PCR) NEGATIVE (Negative) Influenza Type B (PCR) NEGATIVE (Negative) RSV RNA Qual (PCR) NEGATIVE (Negative) SARS-CoV-2 RNA (RT-PCR) NEGATIVE (Negative) Independent Interpretation I performed an independent interpretation of an: Plain X-Ray Interpretation: My interpretation is in agreement with the radiologist's impression of these imaging studies. L EXAMINATION: XR ANKLE, RIGHT CLINICAL INFORMATION: pain COMPARISON: None available. TECHNIQUE: AP, lateral, and mortise views of the right ankle. FINDINGS: No discrete fracture, dislocation, or suspicious bone lesion. There is normal alignment. The mortise is intact. The talar dome is normal. There are mild degenerative ankle joint changes. Os trigonum. Small plantar and dorsal calcaneal spurs. Mild diffuse subcutaneous soft tissue edema is present. No joint effusion. XR/XR ankle RT min 3V IMPRESSION: No acute bony findings of the right ankle. Chronic changes. Electronically signed by: Doug Bautista MD 12/10/2024 10:18 AM EST RP Dictated By: Doug Bautista MD Signed By: Electronically signed by Doug Bautista MD 12/10/24 1018 EXAMINATION: XR CHEST CLINICAL INFORMATION: sob COMPARISON: 04/06/2024. TECHNIQUE: Frontal view of the chest was obtained. FINDINGS: Cardiac silhouette is prominent and may be magnified partially. Mediastinal and hilar contours are normal. Aorta is calcified and tortuous. There is mild pulmonary hyperaeration. Minimal linear scarring or atelectasis peripheral lung bases. No discrete consolidation, effusion, or pneumothorax. No acute soft tissue or bony findings. There are spinal degenerative changes. There are old rib fractures bilaterally. XR/XR chest 1V IMPRESSION: No active pulmonary disease. No acute findings. Electronically signed by: Doug Bautista MD 12/10/2024 10:15 AM EST RP Dictated By: Doug Bautista MD Signed By: Electronically signed by Doug Bautista MD 12/10/24 1015 EXAMINATION: XR FOOT, RIGHT CLINICAL INFORMATION: pain COMPARISON: None available. TECHNIQUE: AP, lateral, and oblique views of the right foot. FINDINGS: There is no fracture, dislocation, or suspicious bone lesion. There is normal alignment. Mild to moderate degenerative changes of the first MTP joint, and interphalangeal joint of the hallux. Normal plantar arch. Os trigonum. Small plantar and dorsal calcaneal spurs. Normal-appearing soft tissues. XR/XR foot RT min 3V IMPRESSION: No acute findings right foot. Degenerative changes. Electronically signed by: Doug Bautista MD 12/10/2024 10:22 AM EST Dictated By: Doug Bautista MD Signed By: Electronically signed by Doug Bautista MD 12/10/24 1022 Radiology Impression Discussion of test interpretation with radiology: I have reviewed the radiologist's reading. Discharge Plan Discharge Clinical Impression: Acute right ankle pain, COPD (chronic obstructive pulmonary disease) Patient Disposition: Home, Self-Care Instructions: Gout (ED), COPD (Chronic Obstructive Pulmonary Disease) (DC) Additional Instructions: Your right ankle x-ray showed no fracture / break. I am suspicious you have gout in your right ankle. The rest of your work up was unremarkable but given your symptoms, we are going to treat you for a COPD exacerbation. Follow up with your primary care provider. Return to the emergency department immediately if your symptoms worsen or if you develop any dizziness, shortness of breath, difficulty breathing, chest pain, blurry vision, loss of vision, nausea, vomiting, abdominal pain, fever, chills, back pain, or any other complaints. La radiograf?a de gil tobillo derecho no mostr? ninguna fractura / rotura. Sospecho que tiene gota en el tobillo derecho. El ivan de gil trabajo no fue notable, ela dados alexandro s?ntomas, vamos a tratarlo por gauri exacerbaci?n de la EPOC. Consulte a gil m?dico de cabecera. Vuelva al servicio de urgencias inmediatamente si alexandro s?ntomas empeoran o si presenta mareos, falta de aliento, dificultad para respirar, dolor tor?cico, visi?n borrosa, p?rdida de visi?n, n?useas, v?mitos, dolor abdominal, fiebre, escalofr?os, dolor de espalda o cualquier otra molestia. Prescriptions: New azithromycin 250 mg tablet See Rx Instructions .ROUTE .COMPLEX Qty: 6 0RF Rx Instructions: For 250 mg dose pack: take 500 mg today (day 1), then 250 mg for 4 days (days 2-5) prednisone 20 mg tablet 20 mg PO DAILY 7 Days Qty: 7 0RF No Action amlodipine 5 mg tablet 5 mg PO DAILY Qty: 90 0RF albuterol sulfate [ProAir HFA] 90 mcg/actuation HFA aerosol inhaler 2 puff inhalation Q4-6H PRN (Reason: shortness of breath or wheezing) Qty: 8.5 0RF hydrochlorothiazide 50 mg tablet 50 mg PO QAM Qty: 90 0RF cyclobenzaprine 10 mg tablet 10 mg PO TID PRN (Reason: muscle spasm) Qty: 14 0RF budesonide-formoterol [Symbicort] 160-4.5 mcg/actuation HFA aerosol inhaler 2 puff inhalation BID lisinopril 20 mg tablet 20 mg PO DAILY gabapentin 300 mg capsule 300 mg PO Q8H tamsulosin 0.4 mg capsule 0.4 mg PO DAILY citalopram 20 mg tablet 20 mg PO DAILY quetiapine 200 mg tablet 200 mg PO DAILY Referrals: Gisselle Keyes MD [Primary Care Provider] - Interventions: ED Discharge Assessment Last Done: 12/10/24 18:18 Discharge Date/Time: 12/10/24 18:18 Print Language: Tamazight
--- OUTSIDE RECORDS SUMMARY | 2024-12-10 17:41 | XMS_ITS | Encounter Summary ---
Author Organization [employer] [facility] Address [address] [place] [address] Care Team Providers Care Steam Conditioner Filling Name Role Phone Aurelio Barajas Primary Care Provider Unavail Larisa Chaidez Primary Care Provider [phone] Gisselle Keyes MD Primary Care Pro vider Encounter Details Date Type Department Care Team (Late st Contact Info) Description 05/27/2023 Abstract [facility] [address] [place] [address] Aurelio Barajas AGNP Social History Tobacco Use Types Packs/Day Years Used Date Smoking Tobacco: Former Cigarettes Smokeless Tobacco: Never Alcohol Use Standard Drinks/Week Comments Never 0 (1 standard drink = 0.6 oz pur e alcohol) Depression Answer Date Recorded Patient Health Questionnaire-9 Score 1 03/30/2023 Depression Answer Date Recorded Patient Health Questionnaire-2 Score 0 03/30/2023 Sex and Gender Information Value Date Recorded Sex Assigned at Male 08/30/2022 10:21 AM EDT Legal Sex Male 10:21 AM EDT Gender Identity Male 08/30/2022 10:21 AM EDT Sexual Orientation Straight 08/30/2022 10 :21 AM EDT documented as of this encounter Plan of Treatment Upcoming Encounters Date Type Department Care Team (Late st Contact Info) Description 01/31/2025 2:15 PM EDT Office Visit [facility] [address], [place] [phone] Gisselle Keyes MD [address] [place], [place] [phone] documented as of this encounter Visit Diagnoses Not on filedocumented in this encounter Additional Health Concerns Assessment Noted Time PHQ-9 Depression Total Score: 1 03/30/20 3:34 PM EDT documented as of this encounter Care Teams Steam Conditioner Filling Relationship Specialty Start Date End Date Aurelio Barajas AGNP PCP - General Family Medicine 01/13/23 07/20/23 Larisa Griffith FNP [address] [place] [address] PCP - General Family Medicine 07/21/23 08/02/23 Gisselle Keyes MD [address] [place] [address] PCP - General Internal Medicine 08/03/23 documented as of this encounter
--- OUTSIDE RECORDS SUMMARY | 2024-12-10 17:41 | XMS_ITS | Encounter Summary ---
Author Organization [employer] Address [address] [place] [address] Care Team Providers Care Glass Deposition Tender Name Role Phone Gisselle Keyes MD Primary Care Pro vider Reason for Visit * Reason Onset Date Comments January Recall 12/03/2024 Encounter Details Date Type Department Care Team (Late st Contact Info) Description 12/03/2024 Telephone [facility] [address] [place] [address] Irish Aleman [place] January Recall Social History Tobacco Use Types Packs/Day Years Used Date Smoking Tobacco: Former Cigarettes Smokeless Tobacco: Never Comments:Started smoking at 14 y of age and stopped 38 y of age,smoked for 24 y -stopped 15 y ago , used to smoke 3 a day . PQT a day 3.6-no need for screening Alcohol Use Standard Drinks/Week Comments Not Currently 0 (1 standard drink = 0.6 oz pur e alcohol) social Depression Answer Date Recorded Patient Health Questionnaire-9 Score 0 07/05/2024 Patient Health Questionnaire-9 Score 0 07/05/2024 Last PHQ-9: Questionnaire Data Not on file 0 07/05/2024 Housing Stability Answer Date Recorded What is your housing situation today? I do not have housing (Staying with others, in a hotel, in a half-way, living outside on the street, on a beach, in a car, or in a park 06/20/[address] you li ve. Do you have problems with any of the following? None of the above 06/20/2024 Food Insecurity Answer Date Recorded Within the past 12 months, y ou worried that your food would run out before you got money to buy more: Never True 06/20/2024 Within the past 12 months,th e food you bought just didn't last and you didn't have enough money to get more: Never True Transportation Answer Date Recorded In the past 12 months, has l ack of transportation kept you from medical appts, meetings, work or from getting things needed for daily living? Yes, it has kept me from medical appointments or getting medications. 06/20/2024 Utilities Answer Date Recorded In the past 12 months, has t he [employer], gas, oil or water [employer] threatened to shut off services in your home? No 06/20/2024 Depression Answer Date Recorded Patient Health Questionnaire-2 Score 0 07/05/2024 Internet Access Answer Date Recorded Internet Access Q1 No 06/30/2024 Internet Access Q2 I do not want or need it 06/02 Sex and Gender Information Value Date Recorded Sex Assigned at Male 08/30/2022 10:21 AM EDT Legal Sex Male 10:21 AM EDT Gender Identity Male 08/30/2022 10:21 AM EDT Sexual Orientation Straight 08/30/2022 10 :21 AM EDT documented as of this encounter Miscellaneous Notes * Telephone Encounter - Irish Aleman [place] - 12/03/2024 2:45 PM EST T/C- Motor Boss Left Voice Mail to return call to schedule an appointment. Recall letter sent. Appointment: Office Visit Note: labs ,weight Month: January With: Yung Please schedule appointment if Patient calls Back. documented in this encounter Plan of Treatment Upcoming Encounters Date Type Department Care Team (Late st Contact Info) Description 01/31/2025 2:15 PM EDT Office Visit [facility] [address] [place] [phone] Gisselle Keyes MD [address] [place], [place] [phone] documented as of this encounter Visit Diagnoses Not on filedocumented in this encounter Additional Health Concerns Assessment Noted Time PHQ-9 Depression Total Score: 0 07/05/20 24 1:45 PM EDT documented as of this encounter Care Teams Glass Deposition Tender Relationship Specialty Start Date End Date Gisselle Keyes MD [address] [place] [phone] PCP - General Internal Medicine 08/03/23 documented as of this encounter
--- OUTSIDE RECORDS SUMMARY | 2024-12-10 17:41 | XMS_ITS | Encounter Summary ---
Author Organization [employer] Address [address] [place] [address] Care Team Providers Care Curriculum Coach Name Role Phone Gisselle Keyes MD Primary Care Pro vider Encounter Details Date Type Department Care Team (Late st Contact Info) Description 12/07/2024 Telephone [facility] [address] [place] [address] Gisselle Keyes MD [address] [place] [address] Social History Tobacco Use Types Packs/Day Years [...] with others, in a hotel, in a snf, living outside on the street, on a [...] the past 12 months, has t he electric, gas, oil or water company threatened to shut off services in your [...] Description 01/31/2025 2:15 PM EDT Office Visit [facility] [address] [place] [phone] Gisselle Keyes MD [address] [place] [phone] documented as of this encounter Visit Diagnoses Not on filedocumented in this encounter Additional Health Concerns Assessment Noted Time PHQ-9 Depression Total Score: 0 07/05/20 24 1:45 PM EDT documented as of this encounter Care Teams Curriculum Coach Relationship Specialty Start Date End Date Gisselle Keyes MD [address] [place] [phone] PCP - General Internal Medicine 08/03/23 documented as of this encounter
--- OUTSIDE RECORDS SUMMARY | 2024-12-10 17:41 | XMS_ITS | Encounter Summary ---
Author Organization [employer] Address [address] [facility] [place] [address] Care Team Providers Care Belt Repairer Name Role Phone Gisselle Keyes MD Primary Care Pro vider Encounter Details Date Type Department Care Team (Late st Contact Info) Description 10/19/2024 Orders Only [facility] [address] [place] [address] Provider, MD Vanda Social History Tobacco Use Types Packs/Day Years [...] with others, in a hotel, in a senior care, living outside on the street, on a [...] Description 01/31/2025 2:15 PM EDT Office Visit [facility] [address] [place] [id number] Gisselle Keyes MD [address] [place] [phone] documented as of this encounter Procedures Procedure Name Priority Date/Time Associated Diagnosis Comments HM COLONOSCOPY Routine 07/17/2024 1:24 PM EDT documented in this encounter Results * Hm Colonoscopy (07/17/2024 1:24 PM EDT) us Historical Provider HEALTH MAINTENANCE Final Result documented in this encounter Visit Diagnoses Not on filedocumented in this encounter Additional Health Concerns Assessment Noted Time PHQ-9 Depression Total Score: 0 07/05/20 1:45 PM EDT documented as of this encounter Care Teams Belt Repairer Relationship Specialty Start Date End Date Gisselle Keyes MD [address] [place] [id number] PCP - General Internal Medicine 08/03/23 documented as of this encounter
--- OUTSIDE RECORDS SUMMARY | 2024-12-10 17:41 | XMS_ITS | Clinical Summary ---
Author Organization [facility] Address [address] [place] [address] Care Team Providers Care Printed [employer] Pcb Draftsman Name Role Phone Gisselle Keyes MD Primary Care Pro vider Allergies No known active allergies Medications Blood Pressure kitIndications:H ypertension, unspecified type 1 kit 2 times daily. 1 kit 3 Active amLODIPine (Norvasc) 5 MG tablet Take 1 tablet (5 mg) by mouth Once per day. 30 tablet 4 04/10/20 25 Active hydroCHLOROthiaz jarred (HYDRODiuril) 25 MG tablet Take 1 tablet (25 mg) by mouth Once per day. 30 tablet 4 04/10/20 25 Active acetaminophen (Tylenol) 500 MG tablet Take 1 tablet (500 mg) by mouth every 6 (six) hours if needed for mild pain for up to 20 doses. 20 tablet 4 Active ibuprofen 600 MG tablet Take 1 tablet (600 mg) by mouth every 6 (six) hours if needed for mild pain for up to 20 doses. 20 tablet 4 Active Symbicort 160-4.5 MCG/ACT inhaler INHALE 2 PUFFS BY MOUTH TWICE DAILY RINSE MOUTH AFTER USING. 10.2 g 1 4 Active Ventolin HFA 108 (90 Base) MCG/ACT inhaler INHALE 2 PUFFS BY MOUTH EVERY 4 HOURS NEEDED FOR WHEEZING OR SHORTNESS OF BREATH 18 g 3 4 Active lisinopril 20 MG tablet Take 1 tablet (20 mg) by mouth Once per day. 90 tablet 4 Active tamsulosin (Flomax) 0.4 MG 24 hr capsule TAKE 1 CAPSULE BY MOUTH DAILY 30 MINUTES AFTER THE SAME MEAL EVERY DAY 90 capsule 4 Active QUEtiapine (SEROquel) 200 MG tabletIndication s:Severe major depression with psychotic features (CMS/HCC) TAKE 1 TABLET BY MOUTH EVERY DAY 90 tablet 4 Active Active Problems Problem Noted Date Diagnosed Date Chest pain 12/07/2024 Assessment & Plan (12/07/2024 3:06 PM EST): Unknown etiology. Right sided chest/rib pain. Exam with consideration of EKG changes as well as uncomfortable appearance will send pt to the ED. 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 172??High?? LDL Cholesterol mg/dL (calc) 86 97 CM Comment: Reference range: <100 ?? Desirable range <100 mg/dL for primary prevention; ?? <70 mg/dL for patients with CHD or diabetic patients with > or = 2 CHD risk factors. ?? LDL-C is now calculated using the David-Mikie calculation, which is a validated novel method providing better accuracy than the Friedewald equation in the estimation of LDL-C. David SS et al. ELGIN. 2013;310(19): 4160-7020 (http://education.[employer].Brandkids/faq/RFB002) Chol/HDLC Ratio <5.0 (calc) 3.7 4.0 Non-HDL Cholesterol <130 mg/dL (calc) 112 124 CM Comment: For patients with diabetes plus 1 major ASCVD risk The 10-year ASCVD risk score (Fritz YANG, et al., 2019) is: 6% Values used to calculate the score: Age: 52 years Sex: Male Is Non- : No Diabetic: No Tobacco smoker: No Systolic Blood Pressure: 140 mmHg Is BP treated: Yes HDL Cholesterol: 42 mg/dL Total Cholesterol: 154 mg/dL Xavi has been exercising and working on his diet. His BP appears under control. His triglycerides are slightly elevated and trending downward. I would like to give him a change to self correct before adding a medication. Assessment & Plan (03/31/2023 12:12 PM EDT): Component Ref Range & Units 2 mo ago Cholesterol, Total <200 mg/dL 165 HDL Cholesterol > OR = 40 mg/dL 41 Triglycerides <150 mg/dL 172??High?? LDL Cholesterol mg/dL (calc) 97 The 10-year ASCVD risk score (Fritz YANG, et al., 2019) is: 6.2% Values used to calculate the score: Age: 52 years Sex: Male Is Non- : No Diabetic: No Tobacco smoker: No Systolic Blood Pressure: 134 mmHg Is BP treated: Yes HDL Cholesterol: 41 mg/dL Total Cholesterol: 165 mg/dL Add fenofibrate? Check lipids in 1 month, instruct patient to get labs drawn 1 to 2 weeks before next visit. Routine adult health maintenance 01/21/2023 Assessment & Plan (03/31/2023 12:10 PM EDT): PHQ: 1 Smoking status: former smoker Lipids: labs ordered Colonoscopy: he says two years, I could not find any records, he says he got it done here in this building. I informed him that we do not do colonoscopies on [facility] grounds. Referral to GI sent for colorectal cancer screening Vacc.: discuss at follow up Eye exam: Denies opthamology referral Dental home: last visit 2 weeks ago, [facility] dental. Assessment & Plan (01/21/2023 4:36 PM EDT): Ordered some blood work for Xavi' upcoming TP visit. F/up 2 months for TP Severe major depression with psychotic features 03/15/2013 Impaired fasting blood sugar 12/01/[address] 08/11/2012 Anxiety 08/11/2012 Diverticular disease 08/11/2012 Hypertension 08/11/2012 Assessment & Plan (05/27/2023 12:19 PM EDT): BP slightly elevated in clinic today. Home BP readings are wnl. I am not going to change his medication today. His home diastolic readings are all 60, 70, or 80. I brought this up to him and told him I wanted him to bring his BP cuff in, in one month so that we can make sure that it is working and see his home readings from the machine. Counseled low-salt diet, advised increase in exercise to 30 min/ day most days, weight loss if applicable. Call clinic for high BP >170/90 or low <90/60. Assessment & Plan (03/31/2023 12:14 PM EDT): He states he thinks his BP is low at home but denies dizziness. I gave Franko BP log, he is to check his BP twice a day and report back in two weeks for HTN assessment. Obesity 08/11/2012 Resolved Problems Problem Noted Date Diagnosed Date Resolved Date Routine health maintenance 03/31/2023 0 03/31/2023 Closed fracture of multiple ribs with routine healing 01/21/2023 07/05/2024 Assessment & Plan (01/21/2023 4:54 PM EDT): Xavi has no complaints or symptoms regarding this diagnosis today. 01/09/23 [facility] notes Medical Decision Making MDM Narrative: 0836: 52-year-old male with left-sided abdominal discomfort, will rule out renal colic, diverticulitis, UTI. I reviewed all investigations and my interpretation is that this is musculoskeletal nature as there is no evidence of infection, renal colic, UTI. There is noted rib fractures at 6 and 7 that are healing, this may be contributing to patient's pain. He was provided with combination analgesics and otherwise discharged home in stable condition. Discharge Clinical Impression: Fracture of rib with routine healing, Musculoskeletal pain Elevated blood pressure reading 01/21/2023 05/27/2023 Assessment & Plan (01/21/2023 4:39 PM EDT): Xavi has a blood pressure cuff at home. We gave him a BP log today. 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 Encounters Date Type Department Care Team Description 12/10/2024 Orders Only [facility] External Provider, [facility] 12/07/2024 3:40 PM EST Office Visit [facility] [address] [phone] Ariadne Gandhi MD Chest pain, unspecified type (Primary Dx) 12/07/2024 [facility] [address] [address] Kacy Sloan RN EMS call to transport 12/07/2024 Travel 12/07/[address] [address] Gisselle Keyes MD 12/03/[address] January Recall 10/19/2024 Orders Only [facility] [address] [place] [phone] Provider, MD Vanda 10/18/2024 Telephone [facility] ADULT DENTAL [address] [place] [phone] Yandy Frost 10/09/2024 Refill [facility] [address] [place] [address] Gisselle Keyes MD Severe major depression with psychotic features (CMS/HCC) 09/30/2024 Refill [facility] [address] [place] [phone] Gisselle Keyes MD 09/26/2024 [facility] [address] [address] Gisselle Keyes MD from Last 3 Months Immunizations Name Administration Dates Next Due Hep A, Adult 12/01/2012 Hep B, adult 12/29/2012,12/01/2012 Influenza injectable quadrivalent preservative f ree 08/11/2017 Influenza, Split (incl. purified surface antigen ) 08/11/2012 Pneumococcal Conjugate PCV 20 07/05/2024 Tdap 07/05/2024,05/24/2013 Family History Medical History Relation Name Comments Brain maligancy Brother HTN, maligancy Mother Relation Name Status Comments Brother Mother Social History Tobacco Use Types Packs/Day Years Used Date Smoking Tobacco: Former Cigarettes Smokeless Tobacco: Never Tobacco Cessation:Counseling Given: Not Answered Comments:Started smoking at 14 y of age [...] with others, in a hotel, in a prison, living outside on the street, on a [...] Orientation Straight 08/30/2022 10 :21 AM EDT Last Filed Vital Signs Vital Sign Reading Time Taken Comments Blood Pressure 139/85 12/07/2024 2:37 PM EST Pulse 99 12/07/2024 2:37 PM EST Temperature 36.7 ??C (98 ??F) 12/07/2024 2:37 PM EST Respiratory Rate 19 12/07/2024 2:37 PM EST Oxygen Saturation 98% 12/07/2024 2:37 PM EST Inhaled Oxygen Concentration - - Weight 179 kg (395 lb) 12/07/2024 2:37 PM EST Height 185.4 cm (6' 1 ) 12/07/2024 2:37 PM EST Body Mass Index 52.11 12/07/2024 2:37 PM EST Plan of Treatment Upcoming Encounters Date Type Department Care Team (Late st Contact Info) Description 01/31/2025 2:15 PM EDT Office Visit [facility] [address] [place] [phone] Gisselle Keyes MD [address] [place], [place] [phone] Health Maintenance Due Date Last Done Comments CT Colonography 1968 FIT DNA/Cologuard 1968 FIT 1970 FOBT 1970 Sigmoidoscopy 1970 Alcohol/Substance Use Screening 1980 Hepatitis B Vaccines (3 of 3 - 19+ 3-dose series) 05/31/2013 12/29/2012, 12/01/2012 Zoster Vaccines (1 of 2) 2018 COVID-19 Vaccine ( - 2023-2 5 season) 2024 Influenza Vaccine (#1) 2024 7, 08/11/2012 Dental Oral Exam 09/30/2024 03/30/2024 Dental Prophylaxis 09/30/2024 03/30/2024 SDOH Screening 06/20/2025 06/20/2024 Depression Screening 07/05/2025 07/05/2024, 07/05/2024 Dental X-Ray: Bitewings 08/30/2025 08/29/20 24, 03/30/2024, 01/13/2023 Tobacco Screening 12/07/2025 12/07/2024 Colonoscopy 07/17/2027 07/17/2024 Colorectal Cancer Screening 07/17/2027 Dental X-Ray: Full Mouth 08/21/2027 024, 03/30/2024, 03/15/2023 Lipid Panel 04/04/2028 04/04/2023, 01/28/2023 DTaP/Tdap/Td Vaccines (3 - T d or Tdap) 07/05/2034 07/05/2024, 05/24/2013 RSV Patients and Patients Aged 60 years or older (1 - 1-dose 75+ series) 2043 Hepatitis A Vaccines Aged Out 12/01/2012 No long er eligible based on patient's age to complete this topic HIV Screening Completed 04/04/2023 Hepatitis C Screening Completed 04/04/2023 Pneumococcal Vaccine: 50+ Years Completed 07/05/2024 HIB Vaccines Aged Out No longer eligi ble based on patient's age to complete this topic HPV Vaccines Aged Out No longer eligi ble based on patient's age to complete this topic IPV Vaccines Aged Out No longer eligi ble based on patient's age to complete this topic Meningococcal Vaccine Aged Out No obed lawanda eligible based on patient's age to complete this topic RSV under 20 months Aged Out No longe r eligible based on patient's age to complete this topic Rotavirus Vaccines Aged Out No longer eligible based on patient's age to complete this topic Procedures Procedure Name Priority Date/Time Associated Diagnosis Comments B TYPE NATRIURETIC PEPTIDE (BNP) Routine 12/10/2024 1:38 PM EST LIPASE Routine 12/10/2024 1:38 PM EST BASIC METABOLIC PANEL Routine 12/10/2024 1:38 PM EST HEPATIC FUNCTION PANEL Routine 12/10/2024 1:38 PM EST CBC WITH AUTO DIFFERENTIAL Routine 12/10/2024 1:38 PM EST SARS COV2/INFLUENZA A/B AND RSV RNA QL NAAT Routine 12/10/2024 1:38 PM EST XR FOOT 3+ VIEWS RIGHT Routine 12/10/2024 9:48 AM EST XR ANKLE 3+ VIEWS RIGHT Routine 12/10/2024 9:48 AM EST XR CHEST 1 VIEW Routine 12/10/2024 9:48 AM EST ECG 12-LEAD Routine 12/07/2024 3:56 PM EST Chest pain, unspecified type BITEWING - SINGLE RADIOGRAPHIC IMAGE Routine 08/29/2024 3:30 PM EDT Advanced periodontitis PANORAMIC RADIOGRAPHIC IMAGE Routine 08/20/2024 11:30 AM EDT HM COLONOSCOPY Routine 07/17/2024 1:24 PM EDT Full PROPHYLAXIS - ADULT Routine 03/30/2024 10:00 AM EDT Advanced periodontitis Gingival bleeding Dental calculus PERIODIC ORAL EVALUATION - ESTABLISHED PATIENT Routine 03/30/2024 10:00 AM EDT Advanced periodontitis Gingival bleeding Dental calculus Teeth missing Tipped teeth Encounter for dental examination Periodontal disease HEPATITIS C AB W/REFL TO HCV RNA, QN, PCR Routine 04/04/2023 9:29 AM EDT Routine adult health maintenance HIV 1 RNA, QN PCR W/RFL TOMAS (RTI,PI,INTEGRASE) Routine 04/04/2023 9:29 AM EDT Routine adult health maintenance LIPID PANEL, STANDARD Routine 04/04/2023 9:29 AM EDT Hypertriglyceridemia from Last 3 Months or Most Recently Relevant to Health Maintenance Results * SARS-CoV-2 RNA, Influenza A/B, and RSV RNA, Ql NAAT (12/10/2024 1:38 PM EST) Influenza A PCR NEGATIVE Negative [facility] Influenza B PCR NEGATIVE Negative [facility] Resp Syncy Virus RNA Qual PCR NEGATIVE Negative [facility] SARS COV2 PCR NEGATIVE Negative [facility] Comment:All test results mus t be correlated with clinical findings.Negative results do not preclude SARS-CoV2, influenza Avirus, influenza B virus and/or RSV infectionand should not be used as the sole basis for treatment orother patient management decisions. Negative results must becombined with clinical observations, patient history, andepidemiological information.This test has not been evaluated for monitoring treatment ofinfection.This test has been authorized by the FDA under an EmergencyUse Authorization (EUA) for use by authorized laboratories.Testing performed on the Equivalent DATA GeneXpert utilizingreal-time RT-PCR.All SARS CoV2 and positive influenza A/B results arereported to [facility]. 12/10/2024 1:38 PM EST 12/10/2024 2:20 PM EST us Generic External Data Provider LAB MICROBIOLOGY - GENERAL ORDERABLES Final Result [facility] [address] [place] [phone] * (ABNORMAL) CBC auto differential (12/10/2024 1:38 PM EST) Pathologist [facility] White Blood Count 12.5(H) 4.8 - 10.8 X10*3/uL [facility] Red Blood Count 4.61 4.60 - 5.80 X10*6/uL [facility] Hemoglobin 14.8 14.0 - 18.0 g/dl [facility] Hematocrit 44.1 42.0 - 52.0 % [facility] Mean Corpuscular Volume 95.7 80.0 - 98.0 fL [facility] Mean Corpuscular Hemoglobin 32.1 27.0 - 33.0 pg [facility] Mean Corpuscular HGB Conc 33.6 31.0 - 36.0 g/dl [facility] Red Cell Distribution Width 11.4 11.0 - 16.0 % [facility] Platelet Count 262 160 - 400 X10*3/uL [facility] Mean Platelet Volume 10.8 9.4 - 12.4 fL [facility] Neutrophils Percent Auto 79.1(H) 45 - 73 % [facility] Imm Gran Pct Auto 0.3 0.0 - 0.4 % [facility] Lymphocytes Percent Auto 12.3(L) 20 - 40 % [facility] Monocytes Percent Auto 6.8 2 - 11 % [facility] Eosinophils Percent Auto 1.2 0 - 4 % [facility] Basophils Percent Auto 0.3 0 - 2 % [facility] NRBC Pct Auto 0.0 0.0 - 0.2 /100WBC [facility] Neutrophils Absolute Auto 9.9(H) 2.0 - 8.3 x10*3/uL [facility] Imm Gran Abs Auto 0.04(H) 0.00 - 0.03 X10*3/uL [facility] Lymphocytes Absolute Auto 1.5 1.2 - 4.9 X10*3/uL [facility] Monocytes Absolute Auto 0.9 0.1 - 1.2 X10*3/uL [facility] Eosinophils Absolute Auto 0.2 0.0 - 0.4 X10*3/uL [facility] Basophils Absolute Auto 0.0 0.0 - 0.2 X10*3/uL [facility] NRBC Abs Auto 0.000 0.0 - 0.012 X10*3/uL [facility] 12/10/2024 1:38 PM EST 12/10/2024 2:20 PM EST us Generic External Data Provider LAB BLOOD ORDERAB LES Final Result [facility] [address] [place] [phone] * B Type Natriuretic Peptide (BNP) (12/10/2024 1:38 PM EST) Pathologist [facility] B Type Natriuretic Peptide 17 <100 pg/mL [facility] Comment:For those patients w ho are being treated with Natrecor(nesiritide, recombinant BNP), BNP testing should beperformed at least two hours post treatment in order toensure that only endogenous levels of BNP are detected. 12/10/2024 1:38 PM EST 12/10/2024 2:20 PM EST Generic External Data Provider LAB BLOOD ORDERAB LES Final Result Performing Organization Address [facility]/ZIP Co de Phone Number [facility] [address] [place] [phone] * Lipase (12/10/2024 1:38 PM EST) [facility] Lipase 24 8 - 78 U/L [facility] 12/10/2024 1:38 PM EST 12/10/2024 2:20 PM EST [facility] External Data Provider LAB BLOOD ORDERAB LES Final Result Performing Organization Address [facility] Co de Phone Number [facility] [address] [place] [phone] * (ABNORMAL) Hepatic Function Panel (12/10/2024 1:38 PM EST) [facility] Bilirubin, Total 0.8 0.0 - 1.0 mg/dL [facility] Bilirubin, Direct 0.2 0.0 - 0.5 mg/dL [facility] Aspartate Amino Transferase 38(H) 5 - 37 U/L [facility] Comment:Slight Hemolysis.Int erpret result with caution. Alanine Aminotransferase 31 0 - 40 U/L [facility] Total Protein 8.7(H) 6.5 - 8.0 g/dL [facility] Albumin Level 4.4 3.5 - 5.0 g/dL [facility] Alkaline Phosphatase 100 39 - 117 U/L [facility] 12/10/2024 1:38 PM EST 12/10/2024 2:20 PM EST us Generic External Data Provider LAB BLOOD ORDERAB LES Final Result Performing Organization Address [facility]/ZIP Co de Phone Number [facility] [address] [place] [phone] * (ABNORMAL) Basic Metabolic Panel (12/10/2024 1:38 PM EST) Sodium 139 135 - 145 mmol/L [facility] Potassium 4.0 3.3 - 5.1 mmol/L [facility] Comment:Slight Hemolysis.Int erpret result with caution. Chloride 109(H) 96 - 108 mmol/L [facility] Carbon Dioxide 24 22 - 29 mmol/L [facility] Anion Gap 10(L) 12 - 20 [facility] Urea Nitrogen (BUN) 15 9 - 16 mg/dL [facility] Creatinine, Serum 0.85 0.5 - 1.4 mg/dL [facility] Creatinine Clr Calc Pharmacy 164.2 [facility] Comment:eGFR (calculated fro m the MDRD study equation) and eCrCl(calculated from the Cockcroft-Gault equation) are based ondifferent parameters and may not yield comparable results.If eCrCl result is absurd, please check patient'sheight/weight. Estimated Glomerular Filt Rate >60 [facility] Comment:Chronic Kidney Disea se: Estimated GFR < 60 mL/min/1.66q4Urljbu Kidney Disease: Estimated GFR < 15 mL/min/1.73m2 Glucose 89 60 - 115 mg/dL [facility] Calcium 10.0 8.4 - 10.2 mg/dL [facility] 12/10/2024 1:38 PM EST 12/10/2024 2:20 PM EST us Generic External Data Provider LAB BLOOD ORDERAB LES Final Result Performing Organization Address City/[facility]/ZIP Co de Phone Number [facility] [address] [place] [phone] * XR Chest 1 View (12/10/2024 9:48 AM EST) Anatomical Region Laterality Modality Chest Radiographic Madhavi ging 12/10/2024 9:48 AM EST Narrative 12/10/2024 10:18 AM EST ? [facility] ?[address] ?[place] [address] ?XRay Report ? Signed ? Patient: Xavi Foy ?MR ?? #: [id number] ? : 1970 ?Acct:[id number] ? Age/Sex: 54 / M ?ADM Date: 12/10/24 ? Loc: HO.ED ? Attending Dr: ? Ordering Physician: Generic ED Physician ?? Date of Service: 12/10/24 ?? Procedure(s): XR chest 1V ?? Accession Number(s): [id number] ? cc: Generic ED Physician; Gisselle Keyes MD ? EXAMINATION: ?? XR CHEST ? CLINICAL INFORMATION: ?? sob ? COMPARISON: ?? 04/06/2024. ? TECHNIQUE: ?? Frontal view of the chest was obtained. ? FINDINGS: ?? Cardiac silhouette is prominent and may be magnified partially. ?? Mediastinal and hilar contours are normal. Aorta is calcified and ?? tortuous. ? There is mild pulmonary hyperaeration. Minimal linear scarring or ?? atelectasis peripheral lung bases. No discrete consolidation, effusion, ?? or pneumothorax. ? No acute soft tissue or bony findings. There are spinal degenerative ?? changes. There are old rib fractures bilaterally. ? XR/XR chest 1V ?? IMPRESSION: ?? No active pulmonary disease. No acute findings. ? Electronically signed by: ??Doug Bautista MD ??12/10/2024 10:15 AM EST RP ? Dictated By: ?Doug Bautista MD ? Signed By: ?<Electronically signed by Doug Bautista MD in OV> ?12/10/24 1015 ? DD/ 0948 ? TD/TT: 12/10/24 1008 ? Engagement Director: ? Procedure Note Moi, Image - 12/10/[address] [address] XRay Report Signed Patient: Xavi Foy [facility] #: [id number] : 1970Acct:[id number] Age/Sex: 54 / MADM Date: 12/10/24 Loc: HO.ED Attending Dr: Ordering Physician: Generic ED Physician Date of Service: 12/10/24 Procedure(s): XR chest 1V Accession Number(s): [id number] cc: Generic ED Physician; Gisselle Keyes MD EXAMINATION: XR CHEST CLINICAL INFORMATION: sob COMPARISON: 04/06/2024. TECHNIQUE: Frontal view of the chest was obtained. FINDINGS: Cardiac silhouette is prominent and may be magnified partially. Mediastinal and hilar contours are normal. Aorta is calcified and tortuous. There is mild pulmonary hyperaeration. Minimal linear scarring or atelectasis peripheral lung bases. No discrete consolidation, effusion, or pneumothorax. No acute soft tissue or bony findings. There are spinal degenerative changes. There are old rib fractures bilaterally. XR/XR chest 1V IMPRESSION: No active pulmonary disease. No acute findings. Electronically signed by: Doug Bautista MD 12/10/2024 10:15 AM EST Dictated By: Doug Bautista MD Signed By: <Electronically signed by Doug Bautista MD in OV> 12/10/24 1015 DD/ 0948 TD/TT: 12/10/24 1008 Engagement Director: [facility] External Provider IMG XR PROCEDURES Edited Result - Final * XR Foot 3+ Views Right (12/10/2024 9:48 AM EST) Anatomical Region Laterality Modality Lower Extremities, Foot Right Radiogra phic Imaging 12/10/2024 9:48 AM EST Narrative 12/10/2024 10:27 AM EST ? [facility] ?[address] ?[place] [address] ?XRay Report ? Signed ? Patient: Rodriguez Justice,Franko ?MR ?? #: [id number] ? : 1970 ?Acct:[id number] ? Age/Sex: 54 / M ?ADM Date: 12/10/24 ? Loc: HO.ED ? Attending Dr: ? Ordering Physician: Generic ED Physician ?? Date of Service: 12/10/24 ?? Procedure(s): XR foot RT min 3V ?? Accession Number(s): [id number] ? cc: Generic ED Physician; Gisselle Keyes MD ? EXAMINATION: ?? XR FOOT, RIGHT ? CLINICAL INFORMATION: ?? pain ? COMPARISON: ?? None available. ? TECHNIQUE: ?? AP, lateral, and oblique views of the right foot. ? FINDINGS: ?? There is no fracture, dislocation, or suspicious bone lesion. ?? There is normal alignment. ?? Mild to moderate degenerative changes of the first MTP joint, and ?? interphalangeal joint of the hallux. ?? Normal plantar arch. ?? Os trigonum. ?? Small plantar and dorsal calcaneal spurs. ? Normal-appearing soft tissues. ? XR/XR foot RT min 3V ?? IMPRESSION: ?? No acute findings right foot. Degenerative changes. ? Electronically signed by: ??Doug Bautista MD ??12/10/2024 10:22 AM EST RP ? Dictated By: ?Doug Bautista MD ? Signed By: ?<Electronically signed by Doug Bautista MD in OV> ?12/10/24 1022 ? DD/ 0948 ? TD/TT: 12/10/24 1008 ? Engagement Director: ? Procedure Note Leandro Prater - 12/10/[address] [address] XRay Report Signed Patient: Xavi Foy [facility] #: [id number] : 1970Acct:[id number] Age/Sex: 54 / MADM Date: 12/10/24 Loc: HO.ED Attending Dr: Ordering Physician: Generic ED Physician Date of Service: 12/10/24 Procedure(s): XR foot RT min 3V Accession Number(s): [id number] cc: Generic ED Physician; Gisselle Keyes MD EXAMINATION: XR FOOT, RIGHT CLINICAL INFORMATION: pain COMPARISON: None available. TECHNIQUE: AP, lateral, and oblique views of the right foot. FINDINGS: There is no fracture, dislocation, or suspicious bone lesion. There is normal alignment. Mild to moderate degenerative changes of the first MTP joint, and interphalangeal joint of the hallux. Normal plantar arch. Os trigonum. Small plantar and dorsal calcaneal spurs. Normal-appearing soft tissues. XR/XR foot RT min 3V IMPRESSION: No acute findings right foot. Degenerative changes. Electronically signed by: Doug Bautista MD 12/10/2024 10:22 AM EST Dictated By: Doug Bautista MD Signed By: <Electronically signed by Doug Bautista MD in OV> 12/10/24 1022 DD/ 0948 TD/TT: 12/10/24 1008 Engagement Director: [facility] External Provider IMG XR PROCEDURES Edited Result - Final * XR Ankle 3+ Views Right (12/10/2024 9:48 AM EST) Anatomical Region Laterality Modality Lower Extremities, Ankle Right Radiogr aphic Imaging 12/10/2024 9:48 AM EST Narrative 12/10/2024 10:20 AM EST ? [facility] ?[address] ?[place] [address] ?XRay Report ? Signed ? Patient: Michael Justice,Franko ?MR ?? #: [id number] ? : 1970 ?Acct:[id number] ? Age/Sex: 54 / M ?ADM Date: 02/10/25 ? Loc: HO.ED ? Attending Dr: ? Ordering Physician: Generic ED Physician ?? Date of Service: 12/10/24 ?? Procedure(s): XR ankle RT min 3V ?? Accession Number(s): [id number] ? cc: Generic ED Physician; Gisselle Keyes MD ? EXAMINATION: ?? XR ANKLE, RIGHT ? CLINICAL INFORMATION: ?? pain ? COMPARISON: ?? None available. ? TECHNIQUE: ?? AP, lateral, and mortise views of the right ankle. ? FINDINGS: ?? No discrete fracture, dislocation, or suspicious bone lesion. There is ?? normal alignment. ?? The mortise is intact. The talar dome is normal. There are mild ?? degenerative ankle joint changes. ?? Os trigonum. ?? Small plantar and dorsal calcaneal spurs. ? Mild diffuse subcutaneous soft tissue edema is present. No joint ?? effusion. ? XR/XR ankle RT min 3V ?? IMPRESSION: ?? No acute bony findings of the right ankle. Chronic changes. ? Electronically signed by: ??Doug Bautista MD ??12/10/2024 10:18 AM EST RP ? Dictated By: ?Doug Bautista MD ? Signed By: ?<Electronically signed by Doug Bautista MD in OV> ?12/10/24 1018 ? DD/ 0948 ? TD/TT: 12/10/24 1008 ? Engagement Director: ? Procedure Note Leandro Prater - 12/10/2024 [place] [address] XRay Report Signed Patient: Xavi Foy [facility] #: [id number] : 1970Acct:[id number] Age/Sex: 54 / MADM Date: 12/10/24 Loc: HO.ED Attending Dr: Ordering Physician: Generic ED Physician Date of Service: 12/10/24 Procedure(s): XR ankle RT min 3V Accession Number(s): [id number] cc: Generic ED Physician; Gisselle Keyes MD EXAMINATION: XR ANKLE, RIGHT CLINICAL INFORMATION: pain COMPARISON: None available. TECHNIQUE: AP, lateral, and mortise views of the right ankle. FINDINGS: No discrete fracture, dislocation, or suspicious bone lesion. There is normal alignment. The mortise is intact. The talar dome is normal. There are mild degenerative ankle joint changes. Os trigonum. Small plantar and dorsal calcaneal spurs. Mild diffuse subcutaneous soft tissue edema is present. No joint effusion. XR/XR ankle RT min 3V IMPRESSION: No acute bony findings of the right ankle. Chronic changes. Electronically signed by: Doug Bautista MD 12/10/2024 10:18 AM EST Dictated By: Doug Bautista MD Signed By: <Electronically signed by Doug Bautista MD in OV> 12/10/24 1018 DD/ 0948 TD/TT: 12/10/24 1008 Engagement Director: [facility] External Provider IMG XR PROCEDURES Edited Result - Final * ECG 12 lead (12/07/2024 3:56 PM EST) Narrative Ariadne Gandhi MD - 12/07/2024 3:56 PM EST Possible inferior infact Ariadne Gandhi MD ECG ORDERABLES Final Resu lt * Hm Colonoscopy (07/17/2024 1:24 PM EDT) Historical Provider HEALTH MAINTENANCE Final Result * HIV-1 RNA, Quantitative, Real-Time PCR with Reflex to Genotype (RTI, PI, Integrase) (04/04/2023 9:29 AM EDT) Pathologist [facility] HIV 1 RNA, QN PCR NOT DETECTED copies/mL [facility], HIV 1 RNA, QN PCR NOT DETECTED Log copies/mL [facility], Comment: REFERENCE RANGE: NOT DETECTED copies/mL ?NOT DETECTED ??Log copies/mL This test was performed using Real-Time Polymerase Chain Reaction. Reportable range is 20 to 10,000,000 copies/mL (1.30-7.00 Log copies/mL). 04/04/2023 9:29 AM EDT 04/04/2023 9:30 AM EDT Narrative [facility] - 04/08/2023 3:00 PM EDT FASTING:UNKNOWN FASTING: UNKNOWN Aurelio Barajas AGNP LAB BLOOD ORDERABLES Final Res ult Performing Organization Address City/[facility]/ZIP Co de Phone Number [facility] [address], [place] [address] [facility], [address] [place] [address] * Hepatitis C Antibody with Reflex to HCV, RNA, Quantitative, Real-Time PCR (04/04/2023 9:29 AM EDT) Pathologist [facility] Hepatitis C Antibody NON-REACT KADE NON-REACT KADE [facility] [place] [facility] Index 0.15 <1.00 [facility] [place] [facility] Comment: HCV antibody was non-reactive. There is no laboratory evidence of HCV infection. In most cases, no further action is required. However, if recent HCV exposure is suspected, a test for HCV RNA (test code 29792) is suggested. For additional information please refer to http://education.Wobeek/faq/ZPK51c6 (This link is being provided for informational/ educational purposes only.) Blood Venous blood specimen / Unknown 04/04/2023 9:29 AM EDT 04/04/2023 9:30 AM EDT Narrative [facility] - 04/08/2023 3:00 PM EDT FASTING:UNKNOWN FASTING: UNKNOWN Aurelio STRICKLAND LAB BLOOD ORDERABLES Final Res ult Performing Organization Address City/[facility]/ZIP Co de Phone Number [facility] [address], [place] [address] [facility] [place] [facility] [address] [place] [address] * (ABNORMAL) Lipid Panel, Standard (04/04/2023 9:29 AM EDT) Cholesterol, Total 154 <200 mg/dL [facility] [place] [facility] HDL Cholesterol 42 > OR = 40 mg/dL [facility] [place] [facility] Triglycerides 163(H) <150 mg/dL [facility] [place] [facility] LDL Cholesterol 86 mg/dL (calc) [facility] [place] [facility] Comment: Reference range: <100 Desirable range <100 mg/dL for primary prevention; ?? <70 mg/dL for patients with CHD or diabetic patients with > or = 2 CHD risk factors. LDL-C is now calculated using the Jan calculation, which is a validated novel method providing better accuracy than the Friedewald equation in the estimation of LDL-C. David RAMON et al. ELGIN. 2013;310(19): 9306-1653 (http://education.ThingWorx/faq/BJO552) Chol/HDLC Ratio 3.7 <5.0 (calc) [facility] Non-HDL Cholesterol 112 <130 mg/dL (calc) [facility] Comment: For patients with diabetes plus 1 major ASCVD risk factor, treating to a non-HDL-C goal of <100 mg/dL (LDL-C of <70 mg/dL) is considered a therapeutic option. Blood Venous blood specimen / Unknown 04/04/2023 9:29 AM EDT 04/04/2023 9:30 AM EDT Narrative [facility] - 04/08/2023 3:00 PM EDT FASTING:UNKNOWN FASTING: UNKNOWN Aurelio Barajas [facility] LAB BLOOD ORDERABLES Final Res ult [facility] [address], [place] [address] [facility] [place] [facility] [address] [place] [address] from Last 3 Months or Most Recently Relevant to Health Maintenance Insurance [facility] C[facility] MEDICAID STAND [place] [address] Care Teams Printed Circuit Board Pcb Draftsman Relationship Specialty Start Date End Date Gisselle Keyes MD [address] [place] [phone] PCP - General Internal Medicine 08/03/23
--- OUTSIDE RECORDS SUMMARY | 2024-12-10 17:41 | XMS_ITS | Encounter Summary ---
Author Organization [facility] Address [address] [place] [address] Care Team Providers Care Vehicle Service Agent Name Role Phone Gisselle Keyes MD Primary Care Pro vider Encounter Details Date Type Department Care Team (Latest Contact Info) Description 12/07/2024 Travel Social History Tobacco Use Types Packs/Day Years [...] others, in a hotel, in a senior living, living outside on the street, on a [...] 01/31/2025 2:15 PM EDT Office Visit [facility] [address] [place] [phone] Gisselle Keyes MD [address] [place] [address] [phone] documented as of this encounter Visit Diagnoses Not on filedocumented in this encounter Additional Health Concerns Assessment Noted Time PHQ-9 Depression Total Score: 0 07/05/20 24 1:45 PM EDT documented as of this encounter Care Teams Vehicle Service Agent Relationship Specialty Start Date End Date Gisselle Keyes MD [address] [place] [address] [phone] PCP - General Internal Medicine 08/03/23 documented as of this encounter
--- OUTSIDE RECORDS SUMMARY | 2024-12-10 17:42 | XMS_ITS | Encounter Summary ---
Author Organization [facility] Address [address]t [place] [address] Care Team Providers Care Bath Mix Operator Name Role Phone Nirali eRynolds MD Primary Care Provider Amelia Earl RUBBER MIXER Primary Care Provider [phone] [facility] Primary Care Provider Larisa Baker RUBBER MIXER Primary Care Provider [phone] Gisselle Keyes MD Primary Care Pro vider Encounter Details Date Type Department Care Team (Late st Contact Info) Description 10/21/2022 Abstract [facility] [address] [place] [address] Larry Kemp DDS [address] [place], [place] [phone] Social History Tobacco Use Types Packs/Day Years Used Date Smoking Tobacco: Never Assessed Sex and Gender Information Value Date Recorded Sex Assigned at Male 08/30/2022 10:21 AM EDT Legal Sex Male 10:21 AM EDT Gender Identity Male 08/30/2022 10:21 AM EDT Sexual Orientation Straight 08/30/2022 10 :21 AM EDT documented as of this encounter Plan of Treatment Upcoming Encounters Date Type Department Care Team (Late st Contact Info) Description 01/31/2025 2:15 PM EDT Office Visit [facility] [address] [place] [address] Gisselle Keyes MD [address] [place] [address] documented as of this encounter Visit Diagnoses Not on filedocumented in this encounter Care Teams Bath Mix Operator Relationship Specialty Start Date End Date Nirali Reynolds MD PCP - General Family Medicine 04/25/20 01/09/23 Amelia Corea FNP PCP - General Family Medicine 01/10/23 01/12/23 Aurelio Barajas AGNP PCP - General Family Medicine 01/13/23 07/20/23 Larisa Griffith FNP [address] [place] [address] PCP - General Family Medicine 07/21/23 08/02/23 Gisselle Keyes MD [address] [place] [address] PCP - General Internal Medicine 08/03/23 documented as of this encounter
--- OUTSIDE RECORDS SUMMARY | 2024-12-10 17:42 | XMS_ITS | Encounter Summary ---
Author Organization [facility] Address [address] [place] [address] Care Team Providers Care Rib Sawyer Name Role Phone Gisselle Keyes MD Primary Care Pro vider Reason for Visit * Reason Onset Date Comments EMS call to transport 12/07/2024 Encounter Details Date Type Department Care Team (Late st Contact Info) Description 12/07/2024 Telephone [facility] [address] [place] [address] Kacy Sloan RN EMS call to transport Social History Tobacco Use Types Packs/Day Years [...] with others, in a hotel, in a fdc, living outside on the street, on a [...] encounter Miscellaneous Notes * Telephone Encounter - Vesna Grider RN - 12/07/2024 3:[address] Gandhi, 911 called for pt transport to [facility] for R/O due to EKG changes. Chest pain - Primary Unknown etiology. Right sided chest/rib pain. Exam with consideration of EKG changes as well as uncomfortable appearance will send pt to the ED. Pt presented with diffuse right sided chest/rib pain. Alert, but uncomfortable appearing. EKG showed intro conductive delay, possible infarct. Was having intermittent beats of tachycardia on exam. Vitals otherwise stable. -Will send pt via ambulance to ER for further evaluation and treatment. EMS arrival to transport at 1525 Report called to [facility] 1528/1538/1544 Per report from Kacy JEFFEROSN at 1544 pt has refused transport to ED * Telephone Encounter - Kacy Sloan RN - 12/07/2024 2:39 PM EST casserole preparer: Patient presents to walk-in center with intermittent symptoms including shortness of breath, chest pain, dizziness, and palpitations. Patient called into triage room. Initially, patient short of breath. Patient had < 1 minute episode of diaphoresis and tachycardia. Heart rate 160s-180s, irregular. EKG leads applied. Patient reporting symptoms have resolved at this time. Reports symptoms usually improve when he rests. EKG performed and handed to provider for evaluation. Heart rate noted to decline to 80s - 90s. He reports last night he had an episode of stabbing chest pain for a minute and then it resolved. Throughout the last month, he has been experiencing intermittent palpitations, chest pain, and shortness of breath. Symptoms worsen with walking/ activity. He came to [facility] today because has has been having persistent palpitations. Reports he does not have a cardiac Hx or consulting services associate that he knows of. Plan: Report to Dr. Oksana Gandhi in to see provider now. Patient to receive further evaluation in ED. EMS called. Upon EMS arrival, patient ultimately declining ED now as he reports he hasn't eaten today. Patient signed EMS' refusal form. Will task RN status check For tomorrow. Confirmed cell phone number with patient. Interpreting - Praveena Casey MA, RN, [id number] Kacy Sloan RN documented in this encounter Plan of Treatment Upcoming Encounters Date Type Department Care Team (Late st Contact Info) Description 01/31/2025 2:15 PM EDT Office Visit [facility] [address] [place] [address] Gisselle Keyes MD [address] [place], [place] [phone] documented as of this encounter Visit Diagnoses Not on filedocumented in this encounter Additional Health Concerns Assessment Noted Time PHQ-9 Depression Total Score: 0 07/05/20 24 1:45 PM EDT documented as of this encounter Care Teams Rib Sawyer Relationship Specialty Start Date End Date Gisselle Keyes MD [address] [place] [phone] PCP - General Internal Medicine 08/03/23 documented as of this encounter
--- OUTSIDE RECORDS SUMMARY | 2024-12-10 17:42 | XMS_ITS | Encounter Summary ---
Author Organization [facility] Address [address] [place] [address] Care Team Providers Care Assessment Nurse Name Role Phone Aurelio Barajas Primary Care Provider Larisa Baker Primary Care Provider [phone] Gisselle Keyes MD Primary Care Pro vider Reason for Visit * Reason Onset Date Comments Appointment 03/02/2023 Encounter Details Date Type Department Care Team (Late st Contact Info) Description 03/02/[address] [facility] [address] [place] [address] Chanda Castillo DDS [address] [place] [address] Appointment Social History Tobacco Use Types Packs/Day Years Used Date Smoking Tobacco: Former Cigarettes Smokeless Tobacco: Never Sex and Gender Information Value Date Recorded Sex Assigned at Male 08/30/2022 10:21 AM EDT Legal Sex Male 10:21 AM EDT Gender Identity Male 08/30/2022 10:21 AM EDT Sexual Orientation Straight 08/30/2022 10 :21 AM EDT documented as of this encounter Miscellaneous Notes * Telephone Encounter - Ayah Plummer - 03/02/2023 2:19 PM EDT Patient called in stating he received a call last week concerning an appt being scheduled for rct with Franc. He is returning call for appt DR documented in this encounter Plan of Treatment Upcoming Encounters Date Type Department Care Team (Late st Contact Info) Description 01/31/2025 2:15 PM EDT Office Visit [facility] [address] [place] [address] Gisselle Keyes MD [address] [place] [phone] documented as of this encounter Visit Diagnoses Not on filedocumented in this encounter Care Teams Assessment Nurse Relationship Specialty Start Date End Date Aurelio Barajas AGNP PCP - General Family Medicine 01/13/23 07/20/23 Larisa Griffith FNP [address] [place] [address] [phone] PCP - General Family Medicine 07/21/23 08/02/23 Gisselle Keyes MD [address] [place] [phone] PCP - General Internal Medicine 08/03/23 documented as of this encounter
--- OUTSIDE RECORDS SUMMARY | 2024-12-10 17:42 | XMS_ITS | Encounter Summary ---
Author Organization [facility] Address [address] 7t [place] [address] Care Team Providers Care Front Line Leader Name Role Phone Gisselle Keyes MD Primary Care Pro vider Reason for Visit * Reason Onset Date Comments Appointment Request 04/16/2024 Encounter Details Date Type Department Care Team ([facility] st Contact Info) Description 04/16/2024 Telephone [facility] [address] [place] [address] Gisselle Keyes MD [address] [place] [address] Appointment Request Social History Tobacco Use Types Packs/Day Years [...] with others, in a hotel, in [place] [facility] [place], living outside on the street, on a [...] encounter Miscellaneous Notes * Telephone Encounter - Thao Kline - 04/16/2024 3:57 PM EDT Tc from pt requesting to r/s PE appt scheduled for 05/24/24 PE/TP, states will be going on vacation and would like sooner appt, financial underwriter attempted to schedule zero availability. Appt is still expected. Please contact at [phone] Chinese documented in this encounter Plan of Treatment Upcoming Encounters Date Type Department Care Team (Late st Contact Info) Description 01/31/2025 2:15 PM EDT Office Visit [facility] [address] [place] [phone] Gisselle Keyes MD [address] [place], [place] [phone] documented as of this encounter Visit Diagnoses Not on filedocumented in this encounter Additional Health Concerns Assessment Noted Time PHQ-9 Depression Total Score: 1 05/31/20 23 3:34 PM EDT documented as of this encounter Care Teams Front Line Leader Relationship Specialty Start Date End Date Gisselle Keyes MD [address] [place] [phone] PCP - General Internal Medicine 08/03/23 documented as of this encounter
--- OUTSIDE RECORDS SUMMARY | 2024-12-10 17:42 | XMS_ITS | Encounter Summary ---
Author Organization [employer] Address [address] [place] [address] Care Team Providers Care Baseball Winder Name Role Phone Gisselle Keyes MD Primary Care Pro vider Encounter Details Date Type Department Care Team (Late st Contact Info) Description 12/10/2024 Orders Only [facility] External Provider, [facility] Social History Tobacco Use Types Packs/Day Years [...] with others, in a hotel, in a intermediate, living outside on the street, on a [...] Description 01/31/2025 2:15 PM EDT Office Visit [facility] [address] [place] [phone] Gisselle Keyes MD [address] [place] [address] documented as of this encounter Procedures Procedure Name Priority Date/Time Associated Diagnosis Comments SARS COV2/INFLUENZA A/B AND RSV RNA QL NAAT Routine 12/10/2024 1:38 PM EST CBC WITH AUTO DIFFERENTIAL Routine 12/10/2024 1:38 PM EST B TYPE NATRIURETIC PEPTIDE (BNP) Routine 12/10/2024 1:38 PM EST LIPASE Routine 12/10/2024 1:38 PM EST HEPATIC FUNCTION PANEL Routine 12/10/2024 1:38 PM EST BASIC METABOLIC PANEL Routine 12/10/2024 1:38 PM EST XR CHEST 1 VIEW Routine 12/10/2024 9:48 AM EST XR FOOT 3+ VIEWS RIGHT Routine 12/10/2024 9:48 AM EST XR ANKLE 3+ VIEWS RIGHT Routine 12/10/2024 9:48 AM EST documented in this encounter Results * SARS-CoV-2 RNA, Influenza A/B, and RSV RNA, Ql NAAT (12/10/2024 1:38 PM EST) Influenza A PCR NEGATIVE Negative [facility] Influenza B PCR NEGATIVE Negative [facility] Resp Syncy Virus RNA Qual PCR NEGATIVE Negative [facility] SARS COV2 PCR NEGATIVE Negative [facility] Comment:All test results mus t be [...] use by authorized laboratories.Testing performed on the [employer] GeneXpert utilizingreal-time RT-PCR.All SARS CoV2 and positive influenza A/B results arereported to [facility]. 12/10/2024 1:38 PM EST 12/10/2024 2:20 PM EST us Generic External Data Provider LAB MICROBIOLOGY - GENERAL ORDERABLES Final Result [facility] [address] [place] [phone] * B Type Natriuretic Peptide (BNP) (12/10/2024 1:38 PM EST) B Type Natriuretic Peptide 17 <100 pg/mL [facility] Comment:For those patients w ho are being treated with Natrecor(nesiritide, recombinant BNP), BNP testing should beperformed at least two hours post treatment in order toensure that only endogenous levels of BNP are detected. 12/10/2024 1:38 PM EST 12/10/2024 2:20 PM EST Generic External Data Provider LAB BLOOD ORDERAB LES Final Result Performing Organization Address [facility] Co de Phone Number [facility] [address] [place] [phone] * Lipase (12/10/2024 1:38 PM EST) Pathologist [facility] Lipase 24 8 - 78 U/L [facility] 12/10/2024 1:38 PM EST 12/10/2024 2:20 PM EST [employer] External Data Provider LAB BLOOD ORDERAB LES Final Result Performing Organization Address [facility] de Phone Number [facility] [address] [place] [phone] * (ABNORMAL) Basic Metabolic Panel (12/10/2024 1:38 PM EST) Pathologist [facility] Sodium 139 135 - 145 mmol/L [facility] Potassium 4.0 3.3 - 5.1 mmol/L [facility] Comment:Slight Hemolysis.Int erpret result with caution. Chloride 109(H) 96 - 108 mmol/L [facility] Carbon Dioxide 24 22 - 29 mmol/L [facility] Anion Gap 10(L) 12 - 20 [facility] Urea Nitrogen (BUN) 15 9 - 16 mg/dL [facility] Creatinine, Serum 0.85 0.5 - 1.4 mg/dL [facility] Creatinine Clr Calc Pharmacy 164.2 [facility] Comment:eGFR (calculated fro m the MDRD study equation) and eCrCl(calculated from the Cockcroft-Gault equation) are based ondifferent parameters and may not yield comparable results.If eCrCl result is absurd, please check patient'sheight/weight. Estimated Glomerular Filt Rate >60 [facility] Comment:Chronic Kidney Disea se: Estimated GFR < 60 mL/min/1.15b3Qmklac Kidney Disease: Estimated GFR < 15 mL/min/1.73m2 Glucose 89 60 - 115 mg/dL [facility] Calcium 10.0 8.4 - 10.2 mg/dL [facility] 12/10/2024 1:38 PM EST 12/10/2024 2:20 PM EST Generic External Data Provider LAB BLOOD ORDERAB LES Final Result Performing Organization Address [facility]/ZIP Co de Phone Number [facility] [address] [place] [phone] * (ABNORMAL) Hepatic Function Panel (12/10/2024 1:38 PM EST) Bilirubin, Total 0.8 0.0 - 1.0 mg/dL [facility] Bilirubin, Direct 0.2 0.0 - 0.5 mg/dL [facility] Aspartate Amino Transferase 38(H) 5 - 37 U/L [facility] Comment:Slight Hemolysis.Int erpret result with caution. Alanine Aminotransferase 31 0 - 40 U/L [facility] Total Protein 8.7(H) 6.5 - 8.0 g/dL [facility] Albumin Level 4.4 3.5 - 5.0 g/dL [facility] Alkaline Phosphatase 100 39 - 117 U/L [facility] 12/10/2024 1:38 PM EST 12/10/2024 2:20 PM EST Generic External Data Provider LAB BLOOD ORDERAB LES Final Result Performing Organization Address [facility] Co de Phone Number [facility] [address] [place] [phone] * (ABNORMAL) CBC auto differential (12/10/2024 1:38 PM EST) White Blood Count 12.5(H) 4.8 - 10.8 X10*3/uL [facility] Red Blood Count 4.61 4.60 - 5.80 X10*6/uL [facility] Hemoglobin 14.8 14.0 - 18.0 g/dl [facility] Hematocrit 44.1 42.0 - 52.0 % [facility] Mean Corpuscular Volume 95.7 80.0 - 98.0 fL [facility] Mean Corpuscular Hemoglobin 32.1 27.0 - 33.0 pg [facility] Mean Corpuscular HGB Conc 33.6 31.0 - 36.0 g/dl [facility] Red Cell Distribution Width 11.4 11.0 - 16.0 % [facility] Platelet Count 262 160 - 400 X10*3/uL [facility] Mean Platelet Volume 10.8 9.4 - 12.4 fL [facility] Neutrophils Percent Auto 79.1(H) 45 - 73 % [facility] Imm Gran Pct Auto 0.3 0.0 - 0.4 % [facility] Lymphocytes Percent Auto 12.3(L) 20 - 40 % [facility] Monocytes Percent Auto 6.8 2 - 11 % [facility] Eosinophils Percent Auto 1.2 0 - 4 % [facility] Basophils Percent Auto 0.3 0 - 2 % [facility] NRBC Pct Auto 0.0 0.0 - 0.2 /100WBC [facility] Neutrophils Absolute Auto 9.9(H) 2.0 - 8.3 x10*3/uL [facility] Imm Gran Abs Auto 0.04(H) 0.00 - 0.03 X10*3/uL [facility] Lymphocytes Absolute Auto 1.5 1.2 - 4.9 X10*3/uL [facility] Monocytes Absolute Auto 0.9 0.1 - 1.2 X10*3/uL [facility] Eosinophils Absolute Auto 0.2 0.0 - 0.4 X10*3/uL [facility] Basophils Absolute Auto 0.0 0.0 - 0.2 X10*3/uL [facility] NRBC Abs Auto 0.000 0.0 - 0.012 X10*3/uL [facility] 12/10/2024 1:38 PM EST 12/10/2024 2:20 PM EST us Generic External Data Provider LAB BLOOD ORDERAB LES Final Result [facility] [address] [place] [phone] * XR Foot 3+ Views Right (12/10/2024 9:48 AM EST) Anatomical Region Laterality Modality Lower Extremities, Foot Right Radiogra phic Imaging 12/10/2024 9:48 AM EST Narrative 12/10/2024 10:27 AM EST ? [facility] ?[address] ?[place] [address] ?XRay Report ? Signed ? Patient: Xavi Foy ?MR ?? #: [id number] ? : 1970 ?Acct:[id number] ? Age/Sex: 54 / M ?ADM Date: 12/10/24 ? Loc: HO.ED ? Attending Dr: ? Ordering Physician: Generic ED Physician ?? Date of Service: 12/10/24 ?? Procedure(s): XR foot RT min 3V ?? Accession Number(s): [id number] ? cc: Generic ED Physician; Gisselle Keyes [...] DD/ 0948 ? TD/TT: 12/10/24 1008 ? Candy Wrapping Machine Operator: ? Procedure Note Donchristianater, Image - 12/10/[address] [address] XRay Report Signed Patient: Xavi Foy [facility] #: [id number] : 1970Acct:[id number] Age/Sex: 54 / MADM Date: 12/10/24 Loc: HO.ED Attending Dr: Ordering Physician: Generic ED Physician Date of Service: 12/10/24 Procedure(s): XR foot RT min 3V Accession Number(s): [id number] cc: Generic ED Physician; Gisselle Keyes MD [...] Bautista MD in OV> 12/10/24 1022 DD/ TD/TT: 12/10/24 100 Candy Wrapping Machine Operator: us [facility] External Provider IMG XR PROCEDURES Edited Result - Final * XR Ankle 3+ Views Right (12/10/2024 9:48 AM EST) Anatomical Region Laterality Modality Lower Extremities, Ankle Right Radiogr aphic Imaging 12/10/2024 9:48 AM EST Narrative 12/10/2024 10:20 AM EST ? [facility] ?[address] ?[place] [address] ?XRay Report ? Signed ? Patient: Xavi Foy A ?MR ?? #: [id number] ? : 1970 ?Acct:[id number] ? Age/Sex: 54 / M ?ADM Date: 12/10/24 ? Loc: HO.ED ? Attending Dr: ? Ordering Physician: Generic ED Physician ?? Date of Service: 12/10/24 ?? Procedure(s): XR ankle RT min 3V ?? Accession Number(s): [id number] ? cc: Generic ED Physician; Gisselle Keyes [...] MD ? Signed By: ?<Electronically signed by oDug Bautista MD in OV> ?12/10/24 1018 ? DD/ 0948 ? TD/TT: 12/10/24 1008 ? Candy Wrapping Machine Operator: ? Procedure Note Donotuseinterpreter, Image - 12/10/[address] [address] XRay Report Signed Patient: Xavi Foy [facility] #: [id number] : 1970Acct:[id number] Age/Sex: 54 / MADM Date: 12/10/24 Loc: HO.ED Attending Dr: Ordering Physician: Generic ED Physician Date of Service: 12/10/24 Procedure(s): XR ankle RT min 3V Accession Number(s): [id number] cc: Generic ED Physician; Gisselle Keyes MD [...] 12/10/24 1018 DD/ 0948 TD/TT: 12/10/24 1008 Candy Wrapping Machine Operator: [facility] External Provider IMG XR PROCEDURES Edited Result - Final * XR Chest 1 View (12/10/2024 9:48 AM EST) Anatomical Region Laterality Modality Chest Radiographic Madhavi ging 12/10/2024 9:48 AM EST Narrative 12/10/2024 10:18 AM EST ? [facility] ?[address] ?[place] [address] ?XRay Report ? Signed ? Patient: Rodriguez Justice,Franko ?MR ?? #: [id number] ? : 1970 ?Acct:[id number] ? Age/Sex: 54 / M ?ADM Date: 12/10/24 ? Loc: HO.ED ? Attending Dr: ? Ordering Physician: Generic ED Physician ?? Date of Service: 12/10/24 ?? Procedure(s): XR chest 1V ?? Accession Number(s): [id number] ? cc: Generic ED Physician; Gisselle Keyes [...] DD/ 0948 ? TD/TT: 12/10/24 1008 ? Candy Wrapping Machine Operator: ? Procedure Note Leandro Prater - 12/10/[address] [address] XRay Report Signed Patient: Xavi Foy [facility] #: [id number] : 1970Acct:[id number] Age/Sex: 54 / MADM Date: 12/10/24 Loc: HO.ED Attending Dr: Ordering Physician: Alex ED Physician Date of Service: 12/10/24 Procedure(s): XR chest 1V Accession Number(s): [id number] cc: Generic ED Physician; Gisselle Keyes MD [...] by: Doug Bautista MD 12/10/2024 10:15 AM [facility] Dictated By: Doug Bautista MD Signed By: <Electronically signed by Doug Bautista MD in OV> 12/10/24 1015 DD/ 0948 TD/TT: 12/10/24 1008 Candy Wrapping Machine Operator: [facility] External Provider IMG XR PROCEDURES Edited Result - Final documented in this encounter Visit Diagnoses Not on filedocumented in this encounter Additional Health Concerns Assessment Noted Time PHQ-9 Depression Total Score: 0 07/05/20 24 1:45 PM EDT documented as of this encounter Care Teams Baseball Winder Relationship Specialty Start Date End Date Gisselle Keyes MD [address] [place] [phone] PCP - General Internal Medicine 08/03/23 documented as of this encounter
--- OUTSIDE RECORDS SUMMARY | 2024-12-10 17:42 | XMS_ITS | Encounter Summary ---
Author Organization [employer] Address [address] [place] [address] Care Team Providers Care Tub Attendant Name Role Phone Gisselle Keyes MD Primary Care Pro vider Reason for Visit * Reason Comments Dizziness Shortness of Breath Encounter Details Date Type Department Care Team ([facility] st Contact Info) Description 12/07/2024 3:40 PM EST Office Visit [facility] [address] [place], [place] [phone] Ariadne Gandhi MD [address] [place], [place] [phone] Chest pain, unspecified type (Primary Dx) Social History Tobacco Use Types Packs/Day Years [...] AM EDT documented as of this encounter Last Filed Vital Signs Vital Sign Reading [...] Mass Index 52.11 12/07/2024 2:37 PM EST documented in this encounter Progress Notes * Victorina Chiu - 12/07/2024 3:40 PM EST Subjective Patient ID: Xavi Justice is a 54 y.o. male with past medical history of morbid obesity, hypertension, hyperlipidemia, depression w psychotic features, asthma, and BPH who presents to walk in clinic for Dizziness and Shortness of Breath. Pt reported right sided chest pain/rib pain, holding his right sided chest during evaluation. He appears uncomfortable. Pt reports having this pain for about 1 month intermittently. Review of Systems Constitutional: Negative for fever and unexpected weight change. Cardiovascular: Positive for chest pain. Gastrointestinal: Positive for abdominal distention. Negative for abdominal pain. Genitourinary: Negative for difficulty urinating. Objective Visit Vitals BP 139/85 (BP Location: Left arm, Patient Position: Sitting, BP Cuff Size: Large adult) Pulse 99 Temp 98 ??F (36.7 ??C) (Oral) Resp 19 Body mass index is 52.11 kg/m??. Physical Exam Constitutional: Appearance: Normal appearance. Cardiovascular: Rate and Rhythm: Tachycardia present. Rhythm irregular. Heart sounds: Heart sounds are distant. Pulmonary: Effort: Pulmonary effort is normal. Breath sounds: Normal breath sounds. Abdominal: General: Abdomen is protuberant. Tenderness: There is no abdominal tenderness. Musculoskeletal: Right lower leg: No edema. Left lower leg: No edema. Skin: General: Skin is warm and dry. Neurological: Mental Status: Mental status is at baseline. Psychiatric: Behavior: Behavior normal. Problem List Items Addressed This Visit Chest pain - Primary Unknown etiology. Right sided chest/rib pain. Exam with consideration of EKG changes as well as uncomfortable appearance will send pt to the ED. -Pt presented with diffuse right sided chest/rib pain. Alert, but uncomfortable appearing. EKG showed intro conductive delay, possible infarct. Was having intermittent beats of tachycardia on exam. Vitals otherwise stable. -Will send pt via ambulance to ER for further evaluation and treatment. I, Victorina Chiu, am serving as a scribe to document services personally performed by Dr. Byran, based on the patient's response to questions by provider and providers statements to me. documented in this encounter Miscellaneous Notes * Assessment & Plan Note - Victorina Chiu - 12/07/2024 3:06 PM ESTAssociated Problem(s): Chest pain Unknown etiology. Right sided chest/rib pain. Exam with consideration of EKG changes as well as uncomfortable appearance will send pt to the ED. documented in this encounter Plan of Treatment Upcoming Encounters Date Type Department Care Team (Late st Contact Info) Description 01/31/2025 2:15 PM EDT Office Visit [facility] [address] [place], [place] [phone] Gisselle Keyes MD [address] [place] [address] documented as of this encounter Procedures Procedure Name Priority Date/Time Associated Diagnosis Comments ECG 12-LEAD Routine 12/07/2024 3:56 PM EST Chest pain, unspecified type documented in this encounter Results * ECG 12 lead (12/07/2024 3:56 PM EST) Narrative Ariadne Gandhi MD - 12/07/2024 3:56 PM EST Possible inferior infact Ariadne Gandhi MD ECG ORDERABLES Final Resu lt documented in this encounter Visit Diagnoses Diagnosis Chest pain, unspecified type- Primary documented in this encounter Additional Health Concerns Assessment Noted Time PHQ-9 Depression Total Score: 0 07/05/20 24 1:45 PM EDT documented as of this encounter Care Teams Tub Attendant Relationship Specialty Start Date End Date Gisselle Keyes MD [address] [place] [phone] PCP - General Internal Medicine 08/03/23 documented as of this encounter
--- OUTSIDE RECORDS SUMMARY | 2024-12-10 17:42 | XMS_ITS | Encounter Summary ---
Author Organization [facility] Address [address] [facility] [address] [place] [address] Care Team Providers Care Installment Account Checker Name Role Phone Nirali Reynolds MD Primary Care Provider Amelia Earl [facility] Primary Care Provider [phone] Aurelio Barajas [facility] Primary Care Provider Larisa Baker [employer] Primary Care Provider [phone] Gisselle Keyes MD Primary Care Pro vider Encounter Details Date Type Department Care Team (Latest Contact Info) Description 08/30/2022 Abstract [facility] CONVERSIONS Dental, Provider, DDS Social History Tobacco Use Types Packs/Day Years [...] Description 01/31/2025 2:15 PM EDT Office Visit [facility] [address] [place], [place] [phone] Gisselle Keyes MD [address], [place] [phone] documented as of this encounter Visit Diagnoses Not on filedocumented in this encounter Care Teams Installment Account Checker Relationship Specialty Start Date End Date Nirali Reynolds MD PCP - General Family Medicine 04/25/20 01/09/23 Amelia Corea FNP PCP - General Family Medicine 01/10/23 01/12/23 Aurelio Barajas AGNP PCP - General Family Medicine 01/13/23 07/20/23 Larisa Griffith FNP [address] [place] [phone] PCP - General Family Medicine 07/21/23 08/02/23 Gisselle Keyes MD [address] [place] [phone] PCP - General Internal Medicine 08/03/23 documented as of this encounter
[2024-12-10 17:47] VITALS: PULSE 79; RESP 18; O2SAT 95
[2024-12-10] MEDS: Albuterol Sulfate 2.5 MG, Albuterol Sulfate (0.083%) 2.5 MG 5 MG INHALE (17:47)
[2024-12-10] MEDS: Ketorolac Tromethamine 15 MG/ML VIAL IM (18:11)
[2024-12-10] MEDS: methylPREDNISolone Sod Succ 125 MG/2 ML VIAL 60 MG IM (18:12)
[2024-12-10 18:18] VITALS: BP 00/00; PULSE 79; RESP 18; TEMP -17.7; TEMP 0
== END 2024-12-10 18:18 | disposition home or self-care (01) ==
PROVIDERS: Emergency Provider Emergency Medicine; PCP Student in an Organized Health Care Education/Training Program
DX: J44.9 Chronic obstructive pulmonary disease, unspecified (principal); M25.571 Pain in right ankle and joints of right foot; R06.02 Shortness of breath; I10 Essential (primary) hypertension; Z79.899 Other long term (current) drug therapy; Z03.818 Encounter for observation for suspected exposure to other biological agents ruled out
CPT/HCPCS: 0241U; 71045; 73610; 73630; 80048; 80076; 83690; 83880; 85025; 94640; 96372; 99283; 99284; J1885; J2919

== ENCOUNTER → 2024-12-10 09:48 | Outpatient (BNV) | payer MEDICAID, SELFPAY | PROVIDERS: PCP Student in an Organized Health Care Education/Training Program; Visit Provider Radiology Diagnostic Radiology | DX: M25.571 Pain in right ankle and joints of right foot (principal); R06.02 Shortness of breath | CPT/HCPCS: 71045; 73610; 73630 ==

== ENCOUNTER → 2024-12-14 04:02 | Outpatient (BNV) | payer MEDICAID, SELFPAY | PROVIDERS: PCP Student in an Organized Health Care Education/Training Program; Visit Provider Internal Medicine | DX: G47.33 Obstructive sleep apnea (adult) (pediatric) (principal); E66.9 Obesity, unspecified; G47.36 Sleep related hypoventilation in conditions classified elsewhere; R40.0 Somnolence | CPT/HCPCS: 95811 ==

== ENCOUNTER → 2024-12-14 19:30 | Outpatient (REF) | payer MEDICAID, SELFPAY | LOC: HO.SL 19:30 | PROVIDERS: PCP Student in an Organized Health Care Education/Training Program; Visit Provider Internal Medicine | DX: G47.33 Obstructive sleep apnea (adult) (pediatric) (principal); E66.9 Obesity, unspecified; G47.36 Sleep related hypoventilation in conditions classified elsewhere; R40.0 Somnolence | CPT/HCPCS: 95811 ==

== ENCOUNTER 2025-01-08 09:28 | Outpatient (AMB) | payer MEDICAID, SELFPAY ==
[2025-01-08 09:30] VITALS: BP 130/78; PULSE 99; O2SAT 94; BMI 51.9
--- NOTE | 2025-01-08 09:30 | A.OFFVIS_ITS ---
Vital Signs 01/08/25 09:30 Height 6 ft 1 in Weight 393 lb 8.402 oz BMI 51.9 BP 130/78 Blood Pressure Location Lt radial Position Sitting Pulse 99 Pulse Source Pulse Oximeter Pulse Oximetry (%) 94 Oxygen Delivery Method Room Air Intake Visit Reasons: Obstructive sleep apnea Fire Hydrant Operator Required: Yes Fire Hydrant Operator Services: Fire Hydrant Operator Present Allergies No Known Allergies [No Known Allergies*] Allergy (Verified 01/08/25 09:47) Medication List - Last Reconciled 01/08/25 by Paul Leach MD albuterol sulfate 90 mcg/actuation (ProAir HFA) 2 puffs inhalation Q4-6H PRN amlodipine 5 mg PO DAILY budesonide-formoterol 160-4.5 mcg/actuation (Symbicort) 2 puffs inhalation BID citalopram 20 mg PO DAILY cyclobenzaprine 10 mg PO TID PRN gabapentin 300 mg PO Q8H hydrochlorothiazide 50 mg PO QAM lisinopril 20 mg PO DAILY quetiapine 200 mg PO DAILY tamsulosin 0.4 mg PO DAILY Do you need a note to return to daycare/school/sports/work: No HPI HPI Obstructive sleep apnea: Details: 54 YEARS OLD GENTLEMAN WITH SUPER MORBID OBESITY AND DIAGNOSIS OF OBSTRUCTIVE SLEEP APNEA WITH NOCTURNAL HYPOXEMIA, HAD AN IN LAB CPAP TITRATION. HE IS ALSO HERE FOR FOLLOW-UP FOR HIS BRONCHIAL ASTHMA. FOR BRONCHIAL ASTHMA HE CONTINUES TO USE BUDESONIDE-FORMOTEROL 160-4.5 2 PUFFS B.I.D., AND CLAIMS THAT HIS BREATHING IS BETTER. HE NEEDS TO USE ALBUTEROL ONLY ONCE. IN A WHILE HE CONTINUES, TO BE GROSSLY OVERWEIGHT HAS DIFFICULTY IN SLEEPING AT NIGHT DUE TO FREQUENT APNEAS. THE CPAP TITRATION IN THE SLEEP LAB WAS SUCCESSFUL BUT HE NEEDED BILEVEL PRESSURE SETTING. WITH PRESSURES OF 18/14 CM MOST OF HIS OBSTRUCTIVE EVENTS WERE ELIMINATED AND ALSO THERE WAS NO FURTHER DESATURATIONS [facility] Medical History (Updated 01/08/25 @ 09:55 by Paul Leach MD) Asthma Nocturnal hypoxemia due to obesity ALFREDITO (obstructive sleep apnea) Dyspnea on exertion Somnolence, daytime Morbid obesity HTN (hypertension) Depression Surgical History History of hernia repair Family History Mother Skin cancer Social History Household Members: None Alcohol intake: never Patient Tobacco Use Status: Never used Tobacco Review of Systems Const All systems reviewed & are unremarkable except as noted in HPI and below Eyes Reports no additional complaints ENT Reports no additional complaints Card Denies chest pain, Denies irregular heart rhythm and Denies leg edema Resp Reports as per HPI GI Reports no additional complaints Reports no additional complaints Musc Reports back pain and Reports myalgias Skin/Breast Reports system reviewed and no additional complaints, except as documented Neuro Reports no additional complaints Psych Reports depression Endo Reports no additional complaints Aller/Immun Reports no additional complaints Physical Exam Vital Signs: Last Vital Signs Pulse 99 01/08/25 09:30 BP 130/78 01/08/25 09:30 Pulse Ox 94 01/08/25 09:30 Oxygen Delivery Method Room Air 01/08/25 09:30 BMI result Body Mass Index 51.9 He is grossly overweight with rounded face and short and obese neck Const General: comfortable, no acute distress, alert and awake Orientation/consciousness: patient oriented x3 HEENT Head: Yes normal to inspection General nose exam: No nasal polyps present and No nasal discharge present Face and sinus: Yes sinuses nontender Mouth: oropharynx abnormals (Very narrow oropharynx, Mallampati class 4) Throat: Yes posterior oropharynx normal Eyes General: appearance normal, both eyes and all related structures Neck Neck: Yes normal visual inspection, Yes no lymphadenopathy, Yes trachea midline, Yes no JVD and Yes other (Neck circumference 22 in) Thyroid: Thyroid normal Chest Chest palpation & inspection: normal inspection of the chest, normal palpation of entire chest wall and no tenderness Resp Other: Percussion note is not perceptible because of the thick chest wall. Breath sounds are diminished throughout the chest especially over the basilar areas. No wheezes or crepitations are heard Cardio Palpation: PMI not normal (Not palpable) Rate: regular rate Rhythm: regular rhythm Heart sounds: no gallops and no murmurs Peripheral pulses: Peripheral pulses 2+ throughout GI Palpation (GI): Soft to palpation, nontender, No hepatosplenomegaly present, no masses and Other GI palpation findings present Auscultation: normal bowel sounds Back/Spine/Pelvis Thoracic/Lumbar Spine: thoracic and lumbar spine normal to inspection and thoraco-lumbar ROM limited Skin General skin exam: no rashes or lesions noted Neuro General: patient oriented x3 and no focal motor deficits Cranial nerves: Yes CN's II-XII intact bilaterally Extrem General: Yes normal to inspection, Yes no clubbing, cyanosis or edema and Yes no calf tenderness Psych Appearance: grossly normal and well kempt Speech and movement: Normal speech and movement present Results Reviewed Results Reviewed: CPAP TITRATION STUDY REPORT IS REVIEWED WITH HIM. SUCCESSFULLY TITRATED TO BILEVEL PRESSURE OF 18/14 CM, USING AIR-FIT N-20 MASK OF LARGE SIZE Assessment & Plan Assessment & Plan (1) Morbid obesity: Comment: Morbid obesity is very obvious in his case, he has gradually put on weight in the last five to six years. There is evidence of more weight since his last visit. Code(s): E66.01 - Morbid (severe) obesity due to excess calories Category: Medical Plan: HAD A FULL DISCUSSION WITH HIM ABOUT HIS WEIGHT ISSUE AND ENCOURAGED HIM TO CUT DOWN, CALORIES AND ESPECIALLY THE CARBOHYDRATES PART OF HIS MEALS. HE SHOULD ALSO WALK AT LEAST 2 MILES EVERY DAY. (2) ALFREDITO (obstructive sleep apnea): Comment: PER HOME SLEEP STUDY HE HAS VERY SEVERE OBSTRUCTIVE APNEA, WITH NOCTURNAL HYPOXEMIA HE HAS UNDERGONE CPAP TITRATION IN THE SLEEP LAB AND SUCCESSFULLY TREATED WITH PRESSURE OF 18/14 CM USING N20 MASK OF LARGE SIZE Code(s): G47.33 - Obstructive sleep apnea (adult) (pediatric) Category: Medical Plan: FINDINGS ARE EXPLAINED TO HIM, EDUCATED ABOUT THE USE OF CPAP. ORDERED AND 25 MASK OF LARGE SIZE WITH PRESSURE SETTING 18/14 CM. HE DID NOT REQUIRE USE OF OXYGEN. HEATED HUMIDIFICATION WILL BE USED. WILL BE CLOSELY FOLLOWED COMPLIANCE AND BENEFITS. (3) Asthma: Comment: HAS MILD INTERMITTENT BRONCHIAL ASTHMA BUT HAS BEEN CONTROLLED WITH THE USE OF BUDESONIDE-FORMOTEROL. Code(s): J45.909 - Unspecified asthma, uncomplicated Category: Medical Plan: CONTINUE USING BUDESONIDE-FORM. 160-4.5 2 PUFFS BID . HIS SYMPTOMS REMAINED CONTROLLED WILL BE CUT DOWN TO ONLY 1 INHALATION B.I.D.. Coding Level of Care Code Est Pt Level 3 (04088) Diagnoses Morbid obesity E66.01 ALFREDITO (obstructive sleep apnea) G47.33 Asthma J45.909
--- OUTSIDE RECORDS SUMMARY | 2025-01-08 10:41 | XMS_ITS | Encounter Summary ---
Author Organization [facility] Address [address] [facility] 7t [place] [address] Care Team Providers Care Smooth Stucco Resurfacer Name Role Phone Aurelio Barajas Primary Care Provider Unavail Larisa Chaidez Primary Care Provider [phone] Gisselle Keyes MD Primary Care Pro vider Encounter Details Date Type Department Care Team (Late st Contact Info) Description 05/27/2023 Abstract [facility] [address] [place] [address] Aurelio Barajas AGNP Social History Tobacco Use [...] Description 01/31/2025 2:15 PM EDT Office Visit [facility] [address], [place] [phone] Gisselle Keyes MD [address] [place], [place] [phone] documented as of this encounter Visit Diagnoses Not on filedocumented in this encounter Additional Health Concerns Assessment Noted Time PHQ-9 Depression Total Score: 1 03/30/20 3:34 PM EDT documented as of this encounter Care Teams Smooth Stucco Resurfacer Relationship Specialty Start Date End Date Aurelio Barajas AGNP PCP - General Family Medicine 01/13/23 07/20/23 Larisa Griffith FNP [address] [place] [address] PCP - General Family Medicine 07/21/23 08/02/23 Gisselle Keyes MD [address] [place] [address] PCP - General Internal Medicine 08/03/23 documented as of this encounter
--- OUTSIDE RECORDS SUMMARY | 2025-01-08 10:41 | XMS_ITS | Encounter Summary ---
Author Organization [employer] Address [address] 7[address] [place] [address] Care Team Providers Care Oyster Harvester Name Role Phone Aurelio Barajas Primary Care Provider Larisa Baker Primary Care Provider [phone] Gisselle Keyes MD Primary Care Pro vider Reason for Visit * Reason Onset Date Comments Appointment 03/02/2023 Encounter Details Date Type Department Care Team (Late st Contact Info) Description 03/02/2023 Telephone [facility] [address] [place] [address] Chanda Castillo DDS [address] [place] [address] Appointment Social History Tobacco Use Types Packs/Day [...] Description 01/31/2025 2:15 PM EDT Office Visit [facility] [address] [place] [address] Gisselle Keyes MD [address] [place] [phone] documented as of this encounter Visit Diagnoses Not on filedocumented in this encounter Care Teams Oyster Harvester Relationship Specialty Start Date End Date Aurelio Barajas AGNP PCP - General Family Medicine 01/13/23 07/20/23 Larisa Griffith FNP [address] [place] [address] [phone] PCP - General Family Medicine 07/21/23 08/02/23 Gisselle Keyes MD [address] [place] [phone] PCP - General Internal Medicine 08/03/23 documented as of this encounter
--- OUTSIDE RECORDS SUMMARY | 2025-01-08 10:41 | XMS_ITS | Encounter Summary ---
Author Organization [employer] Address [address] 7[address] [place] [address] Care Team Providers Care Aerospace Engineer Officer Armament Name Role Phone Gisselle Keyes MD Primary Care Pro vider Encounter Details Date Type Department Care Team (Late st Contact Info) Description 12/10/2024 Orders Only [facility] External Provider, [facility] Social History Tobacco Use Types Packs/Day [...] with others, in a hotel, in a longterm, living outside on the street, on a [...] Description 01/31/2025 2:15 PM EDT Office Visit [facility] [address] [place] [address] Gisselle Keyes MD [address] [place] [address] documented as of this encounter Procedures Procedure [...] PM EST) Influenza A PCR NEGATIVE Negative [facility] Influenza B PCR NEGATIVE Negative [facility] Resp Syncy Virus RNA Qual PCR NEGATIVE Negative [facility] SARS COV2 PCR NEGATIVE Negative [facility] Comment:All test results mus t [...] use by authorized laboratories.Testing performed on the [employer] GeneXpert utilizingreal-time RT-PCR.All SARS CoV2 and positive influenza A/B results arereported to [facility]. 12/10/2024 1:38 PM EST 12/10/2024 2:20 PM EST us Generic External Data Provider LAB MICROBIOLOGY - GENERAL ORDERABLES Final Result [facility] [address] [place] [phone] * B Type Natriuretic Peptide (BNP) (12/10/2024 1:38 PM EST) B Type Natriuretic Peptide 17 <100 pg/mL [facility] Comment:For those patients w ho are being treated with Natrecor(nesiritide, recombinant BNP), BNP testing should beperformed at least two hours post treatment in order toensure that only endogenous levels of BNP are detected. 12/10/2024 1:38 PM EST 12/10/2024 2:20 PM EST Generic External Data Provider LAB BLOOD ORDERAB LES Final Result Performing Organization Address [facility] Co de Phone Number [facility] [address] [place] [phone] * Lipase (12/10/2024 1:38 PM EST) Pathologist [facility] Lipase 24 8 - 78 U/L [facility] 12/10/2024 1:38 PM EST 12/10/2024 2:20 PM EST Segment External Data Provider LAB BLOOD ORDERAB LES Final Result Performing Organization Address [facility] de Phone Number [facility] [address] [place] [phone] * (ABNORMAL) Basic Metabolic Panel (12/10/2024 1:38 PM EST) Pathologist [facility] Sodium 139 135 - 145 mmol/L [facility] Potassium 4.0 3.3 - 5.1 mmol/L [facility] Comment:Slight Hemolysis.Int erpret result with caution. Chloride 109(H) 96 - 108 mmol/L [facility] Carbon Dioxide 24 22 - 29 mmol/L [facility] Anion Gap 10(L) 12 - 20 [facility] Urea Nitrogen (BUN) 15 9 - 16 mg/dL [facility] Creatinine, Serum 0.85 0.5 - 1.4 mg/dL [facility] Creatinine Clr Calc Pharmacy 164.2 [facility] Comment:eGFR (calculated fro m the MDRD study equation) and eCrCl(calculated from the Cockcroft-Gault equation) are based ondifferent parameters and may not yield comparable results.If eCrCl result is absurd, please check patient'sheight/weight. Estimated Glomerular Filt Rate >60 [facility] Comment:Chronic Kidney Disea se: Estimated GFR < 60 mL/min/1.81p6Urpodp Kidney Disease: Estimated GFR < 15 mL/min/1.73m2 Glucose 89 60 - 115 mg/dL [facility] Calcium 10.0 8.4 - 10.2 mg/dL [facility] 12/10/2024 1:38 PM EST 12/10/2024 2:20 PM EST Generic External Data Provider LAB BLOOD ORDERAB LES Final Result Performing Organization Address [facility]/ZIP Co de Phone Number [facility] [address] [place] [phone] * (ABNORMAL) Hepatic Function Panel (12/10/2024 1:38 PM EST) Bilirubin, Total 0.8 0.0 - 1.0 mg/dL [facility] Bilirubin, Direct 0.2 0.0 - 0.5 mg/dL [facility] Aspartate Amino Transferase 38(H) 5 - 37 U/L [facility] Comment:Slight Hemolysis.Int erpret result with caution. Alanine Aminotransferase 31 0 - 40 U/L [facility] Total Protein 8.7(H) 6.5 - 8.0 g/dL [facility] Albumin Level 4.4 3.5 - 5.0 g/dL [facility] Alkaline Phosphatase 100 39 - 117 U/L [facility] 12/10/2024 1:38 PM EST 12/10/2024 2:20 PM EST Generic External Data Provider LAB BLOOD ORDERAB LES Final Result Performing Organization Address [facility] Co de Phone Number [facility] [address] [place] [phone] * (ABNORMAL) CBC auto differential (12/10/2024 1:38 PM EST) White Blood Count 12.5(H) 4.8 - 10.8 X10*3/uL [facility] Red Blood Count 4.61 4.60 - 5.80 X10*6/uL [facility] Hemoglobin 14.8 14.0 - 18.0 g/dl [facility] Hematocrit 44.1 42.0 - 52.0 % [facility] Mean Corpuscular Volume 95.7 80.0 - 98.0 fL [facility] Mean Corpuscular Hemoglobin 32.1 27.0 - 33.0 pg [facility] Mean Corpuscular HGB Conc 33.6 31.0 - 36.0 g/dl [facility] Red Cell Distribution Width 11.4 11.0 - 16.0 % [facility] Platelet Count 262 160 - 400 X10*3/uL [facility] Mean Platelet Volume 10.8 9.4 - 12.4 fL [facility] Neutrophils Percent Auto 79.1(H) 45 - 73 % [facility] Imm Gran Pct Auto 0.3 0.0 - 0.4 % [facility] Lymphocytes Percent Auto 12.3(L) 20 - 40 % [facility] Monocytes Percent Auto 6.8 2 - 11 % [facility] Eosinophils Percent Auto 1.2 0 - 4 % [facility] Basophils Percent Auto 0.3 0 - 2 % [facility] NRBC Pct Auto 0.0 0.0 - 0.2 /100WBC [facility] Neutrophils Absolute Auto 9.9(H) 2.0 - 8.3 x10*3/uL [facility] Imm Gran Abs Auto 0.04(H) 0.00 - 0.03 X10*3/uL [facility] Lymphocytes Absolute Auto 1.5 1.2 - 4.9 X10*3/uL [facility] Monocytes Absolute Auto 0.9 0.1 - 1.2 X10*3/uL [facility] Eosinophils Absolute Auto 0.2 0.0 - 0.4 X10*3/uL [facility] Basophils Absolute Auto 0.0 0.0 - 0.2 X10*3/uL [facility] NRBC Abs Auto 0.000 0.0 - 0.012 X10*3/uL [facility] 12/10/2024 1:38 PM EST 12/10/2024 2:20 PM EST us Generic External Data Provider LAB BLOOD ORDERAB LES Final Result [facility] [address] [place] [phone] * XR Foot 3+ Views Right (12/10/2024 9:48 AM EST) Anatomical Region Laterality Modality Lower Extremities, Foot Right Radiogra phic Imaging 12/10/2024 9:48 AM EST Narrative 12/10/2024 10:27 AM EST ? [facility] ?[address] ?[place] [address] ?XRay Report ? Signed ? Patient: Xavi Foy ?MR ?? #: [id number] ? : 1970 ?Acct:[id number] ? Age/Sex: 54 / M ?ADM Date: 12/10/24 ? Loc: HO.ED ? Attending Dr: ? Ordering Physician: Generic ED Physician ?? Date of Service: 12/10/24 ?? Procedure(s): XR foot RT min 3V ?? Accession Number(s): [id number] ? cc: Generic ED Physician; Gisselle Keyes [...] DD/ 0948 ? TD/TT: 12/10/24 1008 ? Operations/Dispatch: ? Procedure Note Donchristianater, Image - 12/10/[address] [address] XRay Report Signed Patient: Xavi Foy [facility] #: [id number] : 1970Acct:[id number] Age/Sex: 54 / MADM Date: 12/10/24 Loc: HO.ED Attending Dr: Ordering Physician: Generic ED Physician Date of Service: 12/10/24 Procedure(s): XR foot RT min 3V Accession Number(s): [id number] cc: Generic ED Physician; Gisselle Keyes MD [...] OV> 12/10/24 1022 DD/ TD/TT: 12/10/24 100 Operations/Dispatch: us [facility] External Provider IMG XR PROCEDURES Edited Result - Final * XR Ankle 3+ Views Right (12/10/2024 9:48 AM EST) Anatomical Region Laterality Modality Lower Extremities, Ankle Right Radiogr aphic Imaging 12/10/2024 9:48 AM EST Narrative 12/10/2024 10:20 AM EST ? [facility] ?[address] ?[place] [address] ?XRay Report ? Signed ? Patient: Xavi Foy A ?MR ?? #: [id number] ? : 1970 ?Acct:[id number] ? Age/Sex: 54 / M ?ADM Date: 12/10/24 ? Loc: HO.ED ? Attending Dr: ? Ordering Physician: Generic ED Physician ?? Date of Service: 12/10/24 ?? Procedure(s): XR ankle RT min 3V ?? Accession Number(s): [id number] ? cc: Generic ED Physician; Gisselle Keyes [...] DD/ 0948 ? TD/TT: 12/10/24 1008 ? Operations/Dispatch: ? Procedure Note Donotuseinterpreter, Image - 12/10/[address] [address] XRay Report Signed Patient: Xavi Foy [facility] #: [id number] : 1970Acct:[id number] Age/Sex: 54 / MADM Date: 12/10/24 Loc: HO.ED Attending Dr: Ordering Physician: Generic ED Physician Date of Service: 12/10/24 Procedure(s): XR ankle RT min 3V Accession Number(s): [id number] cc: Generic ED Physician; Gisselle Keyes MD [...] 12/10/24 1018 DD/ 0948 TD/TT: 12/10/24 1008 Operations/Dispatch: [facility] External Provider IMG XR PROCEDURES Edited Result - Final * XR Chest 1 View (12/10/2024 9:48 AM EST) Anatomical Region Laterality Modality Chest Radiographic Madhavi ging 12/10/2024 9:48 AM EST Narrative 12/10/2024 10:18 AM EST ? [facility] ?[address] ?[place] [address] ?XRay Report ? Signed ? Patient: Rodriguez Justice,Franko ?MR ?? #: [id number] ? : 1970 ?Acct:[id number] ? Age/Sex: 54 / M ?ADM Date: 12/10/24 ? Loc: HO.ED ? Attending Dr: ? Ordering Physician: Generic ED Physician ?? Date of Service: 12/10/24 ?? Procedure(s): XR chest 1V ?? Accession Number(s): [id number] ? cc: Generic ED Physician; Gisselle Keyes [...] DD/ 0948 ? TD/TT: 12/10/24 1008 ? Operations/Dispatch: ? Procedure Note Leandro Prater - 12/10/[address] [address] XRay Report Signed Patient: Xavi Foy [facility] #: [id number] : 1970Acct:[id number] Age/Sex: 54 / MADM Date: 12/10/24 Loc: HO.ED Attending Dr: Ordering Physician: Alex ED Physician Date of Service: 12/10/24 Procedure(s): XR chest 1V Accession Number(s): [id number] cc: Generic ED Physician; Gisselle Keyes MD [...] 12/10/2024 10:15 AM [facility] Dictated By: Doug Bautista MD Signed By: <Electronically signed by Doug Bautista MD in OV> 12/10/24 1015 DD/ 0948 TD/TT: 12/10/24 1008 Operations/Dispatch: [facility] External Provider IMG XR PROCEDURES Edited Result - Final documented in this encounter Visit Diagnoses Not on filedocumented in this encounter Additional Health Concerns Assessment Noted Time PHQ-9 Depression Total Score: 0 07/05/20 24 1:45 PM EDT documented as of this encounter Care Teams Aerospace Engineer Officer Armament Relationship Specialty Start Date End Date Gisselle Keyes MD [address] [place] [phone] PCP - General Internal Medicine 08/03/23 documented as of this encounter
--- OUTSIDE RECORDS SUMMARY | 2025-01-08 10:41 | XMS_ITS | Encounter Summary ---
Author Organization [employer] Address [address] [place] [address] Care Team Providers Care Rice Field Worker Name Role Phone Gisselle Keyes MD Primary Care Pro vider Encounter Details Date Type Department Care Team (Latest Contact Info) Description 12/12/2024 Travel Social History Tobacco Use Types Packs/Day [...] with others, in a hotel, in a retirement, living outside on the street, on a [...] Description 01/31/2025 2:15 PM EDT Office Visit [facility] [address] [place] [phone] Gisselle Keyes MD [address] [place] [address] [phone] documented as of this encounter Visit Diagnoses Not on filedocumented in this encounter Additional Health Concerns Assessment Noted Time PHQ-9 Depression Total Score: 0 07/05/20 24 1:45 PM EDT documented as of this encounter Care Teams Rice Field Worker Relationship Specialty Start Date End Date Gisselle Keyes MD [address] [place] [address] [phone] PCP - General Internal Medicine 08/03/23 documented as of this encounter
--- OUTSIDE RECORDS SUMMARY | 2025-01-08 10:41 | XMS_ITS | Encounter Summary ---
Author Organization [facility] Address [address] [facility] 7t [place] [address] Care Team Providers Care Eeg Technologist Name Role Phone Nirali Reynolds MD Primary Care Provider Amelia Earl [facility] Primary Care Provider [phone] Aurelio Barajas [facility] Primary Care Provider Larisa Baker [facility] Primary Care Provider [phone] Gisselle Keyes MD Primary Care Pro vider Encounter Details Date Type Department Care Team (Latest Contact Info) Description 08/30/2022 Abstract [facility] CONVERSIONS Dental, Provider, DDS Social History Tobacco [...] Description 01/31/2025 2:15 PM EDT Office Visit [facility] [address] [place], [place] [phone] Gisselle Kyees MD [address] [place], [place] [phone] documented as of this encounter Visit Diagnoses Not on filedocumented in this encounter Care Teams Eeg Technologist Relationship Specialty Start Date End Date Nirali Reynolds MD PCP - General Family Medicine 04/25/20 01/09/23 Amelia Corea FNP PCP - General Family Medicine 01/10/23 01/12/23 Aurelio Barajas AGNP PCP - General Family Medicine 01/13/23 07/20/23 Larisa Griffith FNP [address] [place] [phone] PCP - General Family Medicine 07/21/23 08/02/23 Gisselle Keyes MD [address] [place] [phone] PCP - General Internal Medicine 08/03/23 documented as of this encounter
--- OUTSIDE RECORDS SUMMARY | 2025-01-08 10:41 | XMS_ITS | Encounter Summary ---
Author Organization [employer] Address [address] [facility] [address] [place] [address] Care Team Providers Care Project Asst Name Role Phone Gisselle Keyes MD Primary Care Pro vider Reason for Visit * Reason Comments Med Refill Encounter Details Date Type Department Care Team ([facility] st Contact Info) Description 01/04/2025 Refill [facility] [address] [place] [address] Gisselle Keyes MD [address] [place] [address] Social History Tobacco Use Types Packs/Day Years [...] Description 01/31/2025 2:15 PM EDT Office Visit [facility] [address] [place] [phone] Gisselle Keyes MD [address] [place] [phone] documented as of this encounter Visit Diagnoses Not on filedocumented in this encounter Additional Health Concerns Assessment Noted Time PHQ-9 Depression Total Score: 0 07/05/20 24 1:45 PM EDT documented as of this encounter Care Teams Project Asst Relationship Specialty Start Date End Date Gisselle Keyes MD [address] [place] [phone] PCP - General Internal Medicine 08/03/23 documented as of this encounter
--- OUTSIDE RECORDS SUMMARY | 2025-01-08 10:41 | XMS_ITS | Encounter Summary ---
Author Organization [employer] Address [address] [facility] [address] [facility] [address] [address] 7[address] [place] [address] Care Team Providers Care Treating Engineer Name Role Phone Gisselle Keyes MD Primary Care Pro vider Reason for Visit * Reason Comments Hospital Follow-up Encounter Details Date Type Department Care Team (Late st Contact Info) Description 12/12/2024 3:30 PM EST Office Visit [facility] [address] [place] [address] Lori Aaron MD [address] [place] [address] Obstructive sleep apnea hypopnea, severe (Primary Dx); Dietary counseling; Exercise counseling; Class 3 severe obesity due to excess calories with serious comorbidity and body mass index (BMI) of 50.0 to 59.9 in adult (CMS/HCC); Severe major depression with psychotic features (CMS/HCC); Mild asthma, unspecified whether complicated, unspecified whether persistent; Hepatic steatosis Social History Tobacco Use Types Packs/Day Years [...] Sign Reading Time Taken Comments Blood Pressure 130/80 12/12/2024 3:20 PM EST Pulse 78 12/12/2024 3:20 PM EST Temperature 36.6 ??C (97.9 ??F) 12/12/2024 3:20 PM ES T Respiratory Rate 18 12/12/2024 3:20 PM EST Oxygen Saturation 99% 12/12/2024 3:20 PM EST Inhaled Oxygen Concentration - - Weight 177 kg (390 lb) 12/12/2024 3:20 PM EST Height 185.4 cm (6' 1 ) 12/12/2024 3:20 PM EST Body Mass Index 51.45 12/12/2024 3:20 PM EST documented in this encounter Progress Notes * Lori Aaron MD - 12/12/2024 3:30 PM EST SUBJECTIVE: Xavi Justice is a 54 y.o. year old male who presents for acute visit, followup of ER. Acute Concerns: He was [place] [facility] for chest pain and tightness (12/07/24), and referred to ER. He did not go to the ER immediately, but 12/10/24 presented to [facility] ER and was treated with Duonebs x 2, discharged with ANGELINE. He had R leg pain at that time as well, this R leg pain has largely resolved. Here are the A/P from those visits: -Pt presented with diffuse right sided chest/rib pain. Alert, but uncomfortable appearing. EKG showed intro conductive delay, possible infarct. Was having intermittent beats of tachycardia on exam. Vitals otherwise stable. -Will send pt via ambulance to ER for further evaluation and treatment. ER 12/10/24 day with right ankle pain and increased SOB. Patient's physical exam was as noted in the physical exam portion of this note. Patient's blood work showed a mildly elevated WBC count of 12.5. Patient's right foot, right ankle, and chest x-rays showed no acute process. I explained my physical exam findings as well as all test results to the patient. I answered all questions asked by the patient. Patient's clinical presentation is most consistent with right ankle pain vs. acute gout of the right ankle and COPD exacerbation vs. viral illness. We also discussed that much as his chest tightness is due to ALFREDITO/COPD. He is having an in lab sleepstudy 12/14/24 to determine his CPAP settings. We discussed that weight loss would be hugely beneficial to his breathing and sleep. Will initiate script for Naun based on his severe ALFREDITO, HTN, liver disease. Abdomen/pelvis CT 02/2023 IMPRESSION: Nonobstructive small radiopaque calculi upper pole left kidney. It is new since the previous exam 01/09/2023. Mild constipation. Mild hepatic steatosis. Patient Active Problem List Diagnosis Routine adult health maintenance Abnormal liver CT Anxiety Diverticular disease Hypertension Impaired fasting blood sugar Obesity Severe major depression with psychotic features (CMS/HCC) Hypertriglyceridemia Mild asthma Advanced periodontitis Gingival bleeding Teeth missing Dental calculus Foreign body of right ear Bone loss of mandible Chest pain Obstructive sleep apnea hypopnea, severe Hepatic steatosis Past Surgical History: Procedure Laterality Date UMBILICAL HERNIA REPAIR Family History Problem Relation Name Age of Onset Other (HTN, maligancy) Mother Other (Brain maligancy) Brother Social History Social History Narrative Not on file Review of Systems Constitutional: Negative. Respiratory: Positive for shortness of breath. Cardiovascular: Positive for chest pain. Gastrointestinal: Positive for abdominal distention. Musculoskeletal: Negative. OBJECTIVE: Vitals: 12/12/24 1520 BP: 130/80 BP Location: Left arm Patient Position: Sitting BP Cuff Size: Large adult Pulse: 78 Resp: 18 Temp: 97.9 ??F (36.6 ??C) TempSrc: Temporal SpO2: 99% Weight: 390 lb (177 kg) Height: 6' 1 (1.854 m) Physical Exam Vitals reviewed. Constitutional: Appearance: Normal appearance. He is normal weight. HENT: Head: Normocephalic and atraumatic. Right Ear: Tympanic membrane, ear canal and external ear normal. Left Ear: Tympanic membrane, ear canal and external ear normal. Nose: Nose normal. Mouth/Throat: Mouth: Mucous membranes are moist. Pharynx: Oropharynx is clear. Cardiovascular: Rate and Rhythm: Normal rate and regular rhythm. Pulses: Normal pulses. Heart sounds: Normal heart sounds. Pulmonary: Effort: Pulmonary effort is normal. Breath sounds: Normal breath sounds. Abdominal: General: Bowel sounds are normal. There is distension. Palpations: Abdomen is soft. Tenderness: There is no abdominal tenderness. There is no guarding or rebound. Hernia: No hernia is present. Musculoskeletal: Cervical back: Normal range of motion and neck supple. Skin: General: Skin is warm and dry. Capillary Refill: Capillary refill takes less than 2 seconds. Neurological: General: No focal deficit present. Mental Status: He is alert and oriented to person, place, and time. Psychiatric: Mood and Affect: Mood normal. Behavior: Behavior normal. ASSESSMENT/PLAN Problem List Items Addressed This Visit Obesity Current Assessment & Plan Patient with long-standing obesity, BMI currently 51 In this ER followup appointment, we discussed that much as his chest tightness is due to ALFREDITO/asthma. We reviewed that weight loss would be hugely beneficial to his breathing and sleep. Will initiate script for Naun based on his severe ALFREDITO, asthma, HTN, liver disease. Severe major depression with psychotic features (CMS/HCC) Mild asthma Obstructive sleep apnea hypopnea, severe - Primary Overview AHI 53 on home PSG 07/2024 Current Assessment & Plan Having in lab study to titrate CPAP 12/14/24, then will begin at home therapy Hepatic steatosis Other Visit Diagnoses Dietary counseling Exercise counseling Follow Up: with PCP in January 2025 as scheduled, or sooner prn No Known Allergies Current Outpatient Medications: Bisacodyl EC 5 MG EC tablet, TAKE 4 TABLETS BY MOUTH ONCE AT NOON THE DAY BEFORE YOUR COLONOSCOPY, Disp: , Rfl: acetaminophen (Tylenol) 500 MG tablet, Take 1 tablet (500 mg) by mouth every 6 (six) hours if needed for mild pain for up to 20 doses., Disp: 20 tablet, Rfl: 0 amLODIPine (Norvasc) 5 MG tablet, Take 1 tablet (5 mg) by mouth Once per day., Disp: 30 tablet, Rfl: 11 Blood Pressure kit, 1 kit 2 times daily., Disp: 1 kit, Rfl: 0 hydroCHLOROthiazide (HYDRODiuril) 25 MG tablet, Take 1 tablet (25 mg) by mouth Once per day., Disp:30 tablet, Rfl: 11 ibuprofen 600 MG tablet, Take 1 tablet (600 mg) by mouth every 6 (six) hours if needed for mild pain for up to 20 doses., Disp: 20 tablet, Rfl: 0 lisinopril 20 MG tablet, Take 1 tablet (20 mg) by mouth Once per day., Disp: 90 tablet, Rfl: 0 QUEtiapine (SEROquel) 200 MG tablet, TAKE 1 TABLET BY MOUTH EVERY DAY, Disp: 90 tablet, Rfl: 0 Symbicort 160-4.5 MCG/ACT inhaler, INHALE 2 PUFFS BY MOUTH TWICE DAILY RINSE MOUTH AFTER USING., Disp: 10.2 g, Rfl: 1 tamsulosin (Flomax) 0.4 MG 24 hr capsule, TAKE 1 CAPSULE BY MOUTH DAILY 30 MINUTES AFTER THE SAME MEAL EVERY DAY, Disp: 90 capsule, Rfl: 0 Tirzepatide (Mounjaro) 2.5 MG/0.5ML solution auto-injector, Inject 2.5 mg under the skin 1 (one) time per week., Disp: 2 mL, Rfl: 3 Ventolin HFA 108 (90 Base) MCG/ACT inhaler, INHALE 2 PUFFS BY MOUTH EVERY 4 HOURS NEEDED FOR WHEEZING OR SHORTNESS OF BREATH, Disp: 18 g, Rfl: 3 Bengali Translation: Provided by [facility] staff member ANDRE Garcia documented in this encounter Miscellaneous Notes * Assessment & Plan Note - Lori Aaron MD - 12/17/2024 10:00 AM EST Associated Problem(s): Obesity Patient with long-standing obesity, BMI currently 51 In this ER followup appointment, we discussed that much as his chest tightness is due to ALFREDITO/asthma. We reviewed that weight loss would be hugely beneficial to his breathing and sleep. Will initiate script for Mounjaro based on his severe ALFREDITO, asthma, HTN, liver disease. * Assessment & Plan Note - Lori Aaron MD - 12/17/2024 9:58 AM ESTAssociated Problem(s): Obstructive sleep apnea hypopnea, severe Having in lab study to titrate CPAP 12/14/24, then will begin at home therapy documented in this encounter Plan of Treatment Upcoming Encounters Date Type Department Care Team (Late st Contact Info) Description 01/31/2025 2:15 PM EDT Office Visit [facility] [address] [place] [phone] Gisselle Keyes MD [address] [place] [address] documented as of this encounter Visit Diagnoses Diagnosis Obstructive sleep apnea hypopnea, severe- Primary Dietary counseling Dietary surveillance and counseling Exercise counseling Class 3 severe obesity due to excess calories with serious comorbidity and body mass index (BMI) of 50.0 to 59.9 in adult ([facility]) Severe major depression with psychotic features ([facility]) Major depressive disorder, single episode, severe, specified as with psychotic behavior Mild asthma, unspecified whether complicated, unspecified whether persistent Hepatic steatosis Other chronic nonalcoholic liver disease documented in this encounter Additional Health Concerns Assessment Noted Time PHQ-9 Depression Total Score: 0 07/05/20 24 1:45 PM EDT documented as of this encounter Care Teams Treating Engineer Relationship Specialty Start Date End Date Gisselle Keyes MD [address] [place] [phone] PCP - General Internal Medicine 08/03/23 documented as of this encounter
--- OUTSIDE RECORDS SUMMARY | 2025-01-08 10:41 | XMS_ITS | Encounter Summary ---
Author Organization [email or web address] Address [address] [facility] 7[address] [place] [address] Care Team Providers Care Epic Radiant Analyst Name Role Phone Gisselle Keyes MD Primary Care Pro vider Reason for Visit * Reason Onset Date Comments PA 12/25/2024 Encounter Details Date Type Department Care Team (Late st Contact Info) Description 12/25/2024 Telephone [facility] [address] [place] [address] Gisselle Keyes MD [address] [place] [address] PA Social History Tobacco Use Types Packs/Day Years [...] with others, in a hotel, in a long term, living outside on the street, on a [...] encounter Miscellaneous Notes * Telephone Encounter - Debbie Castillo - 01/03/2025 11:19 AM EST PA for Mounjaro generated and placed on PCP desk for review and signature. * Telephone Encounter - Lucie Gore - 12/25/2024 2:17 PM EST Patient walked in said he was prescribed Mounjaro 2.5 mg/0.5ml but was advised by pharmacy, medication needs PA. documented in this encounter Plan of Treatment Upcoming Encounters Date Type Department Care Team (Late st Contact Info) Description 01/31/2025 2:15 PM EDT Office Visit [facility] [address] [place] [phone] Gisselle Keyes MD [address] [place], [place] [phone] documented as of this encounter Visit Diagnoses Not on filedocumented in this encounter Additional Health Concerns Assessment Noted Time PHQ-9 Depression Total Score: 0 07/05/20 24 1:45 PM EDT documented as of this encounter Care Teams Epic Radiant Analyst Relationship Specialty Start Date End Date Gisselle Keyes MD [address] [place] [address] PCP - General Internal Medicine 08/03/23 documented as of this encounter
--- OUTSIDE RECORDS SUMMARY | 2025-01-08 10:41 | XMS_ITS | Encounter Summary ---
Author Organization [employer] Address [address] [facility] [address] [place] [address] Care Team Providers Care Ship Yard Electrical Person Name Role Phone Gisselle Keyes MD Primary Care Pro vider Encounter Details Date Type Department Care Team (Late st Contact Info) Description 10/19/2024 Orders Only [facility] [address] [place] [address] Provider, MD Vanda Social History Tobacco Use [...] with others, in a hotel, in a skilled nursing, living outside on the street, on a [...] Description 01/31/2025 2:15 PM EDT Office Visit [facility] [address] [place] [phone] Gisselle Keyes MD [address] [place] [phone] documented as of this encounter Procedures Procedure [...] documented as of this encounter Care Teams Ship Yard Electrical Person Relationship Specialty Start Date End Date Gisselle Keyes MD [address] [place] [phone] PCP - General Internal Medicine 08/03/23 documented as of this encounter
--- OUTSIDE RECORDS SUMMARY | 2025-01-08 10:41 | XMS_ITS | Clinical Summary ---
Author Organization [employer] Address [address] [place] [address] Care Team Providers Care Tare Weigher Name Role Phone Gisselle Keyes MD Primary Care Pro vider Allergies No known active allergies Medications Blood Pressure kitIndications: Hypertension, unspecified type 1 kit 2 times daily. 1 kit 05/27/20 23 Active amLODIPine (Norvasc) 5 MG tablet Take 1 tablet (5 mg) by mouth Once per day. 30 tablet 04/10/20 24 025 Active hydroCHLOROthia zide (HYDRODiuril) 25 MG tablet Take 1 tablet (25 mg) by mouth Once per day. 30 tablet 04/10/20 24 025 Active acetaminophen (Tylenol) 500 MG tablet Take 1 tablet (500 mg) by mouth every 6 (six) hours if needed for mild pain for up to 20 doses. 20 tablet 08/20/20 24 Active ibuprofen 600 MG tablet Take 1 tablet (600 mg) by mouth every 6 (six) hours if needed for mild pain for up to 20 doses. 20 tablet 08/20/20 24 Active Symbicort 160-4.5 MCG/ACT inhaler INHALE 2 PUFFS BY MOUTH TWICE DAILY RINSE MOUTH AFTER USING. 10.2 g 1 09/26/20 24 Active lisinopril 20 MG tablet Take 1 tablet (20 mg) by mouth Once per day. 90 tablet 10/09/20 24 Active tamsulosin (Flomax) 0.4 MG 24 hr capsule TAKE 1 CAPSULE BY MOUTH DAILY 30 MINUTES AFTER THE SAME MEAL EVERY DAY 90 capsule 10/09/20 24 Active QUEtiapine (SEROquel) 200 MG tabletIndicatio ns:Severe major depression with psychotic features (CMS/HCC) TAKE 1 TABLET BY MOUTH EVERY DAY 90 tablet 10/09/20 24 Active Bisacodyl EC 5 MG EC tablet TAKE 4 TABLETS BY MOUTH ONCE AT NOON THE DAY BEFORE YOUR COLONOSCOPY 07/13/20 24 Active Tirzepatide (Mounjaro) 2.5 MG/0.5ML solution auto-injector Inject 2.5 mg under the skin 1 (one) time per week. 2 mL 3 12/17/19 25 Active Ventolin HFA 108 (90 Base) MCG/ACT inhaler INHALE 2 PUFFS BY MOUTH EVERY 4 HOURS NEEDED FOR WHEEZING OR SHORTNESS OF BREATH 18 g 1 01/05/20 25 Active Ventolin HFA 108 (90 Base) MCG/ACT inhaler INHALE 2 PUFFS BY MOUTH EVERY 4 HOURS NEEDED FOR WHEEZING OR SHORTNESS OF BREATH 18 g 3 10/02/20 24 025 Discontinued Active Problems Problem Noted Date Diagnosed Date Obstructive sleep apnea hypopnea, severe 025 Overview (12/17/2024): AHI 53 on home PSG 07/2024 Assessment & Plan (12/17/2024 9:58 AM EST): Having in lab study to titrate CPAP 12/14/24, then will begin at home therapy Hepatic steatosis 12/17/2024 Chest pain 12/07/2024 Assessment & Plan (12/07/2024 [...] ?? LDL-C is now calculated using the David-Deluna calculation, which is a validated novel method providing better accuracy than the Friedewald equation in the estimation of LDL-C. David RAMON et al. ELGIN. 2013;310(19): 1984-2658 (http://education.[employer]/faq/GQQ785) Chol/HDLC Ratio <5.0 (calc) 3.7 4.0 Non-HDL [...] that we do not do colonoscopies on [facility] grounds. Referral to GI sent for colorectal cancer screening Vacc.: discuss at follow up Eye exam: Denies opthamology referral Dental home: last visit 2 weeks ago, [facility] dental. Assessment & Plan (01/21/2023 4:36 [...] two weeks for HTN assessment. Obesity 08/11/2012 Assessment & Plan (12/17/2024 10:00 AM EST): Patient with long-standing obesity, BMI currently 51 In this ER followup appointment, we discussed that much as his chest tightness is due to ALFREDITO/asthma. We reviewed that weight loss would be hugely beneficial to his breathing and sleep. Will initiate script for Naun based on his severe ALFREDITO, asthma, HTN, liver disease. Resolved Problems Problem Noted Date Diagnosed Date Resolved Date Routine health maintenance 03/31/2023 0 03/31/2023 Closed fracture of multiple ribs with routine healing 01/21/2023 07/05/2024 Assessment & Plan (01/21/2023 4:54 PM EDT): Xavi has no complaints or symptoms regarding this diagnosis today. 01/09/23 [facility] [place] Medical Decision Making MDM Narrative: 0836: [...] Encounters Date Type Department Care Team Description 01/04/2025 Refill [facility] [address] [place] [address] Gisselle Keyes MD 12/25/2024 Telephone [facility] [address] [place] [address] Gisselle Keyes MD PA 12/12/2024 3:30 PM EST Office Visit [facility] [address] [place] [phone] Lori Aaron MD Obstructive sleep apnea hypopnea, severe (Primary Dx); Dietary counseling; Exercise counseling; Class 3 severe obesity due to excess calories with serious comorbidity and body mass index (BMI) of 50.0 to 59.9 in adult (CMS/HCC); Severe major depression with psychotic features ([facility]/HCC); Mild asthma, unspecified whether complicated, unspecified whether persistent; Hepatic steatosis 12/12/2024 Travel 12/10/2024 Orders Only [facility] External Provider, [facility] 12/07/2024 3:40 PM EST Office Visit [facility] [address] [address] Ariadne Gandhi MD Chest pain, unspecified type (Primary Dx) 12/07/2024 [facility] [address] [address] Kacy Sloan RN EMS call to transport 12/07/2024 Travel 12/07/2024 Telephone [facility] [address] [place] [phone] Gisselle Keyes MD 12/03/2024 Telephone [facility] [address] [place] [phone] Irish Aleman [place] January10/19/2024 Orders Only [facility] [address] [place] [phone] Vanda Schwartz MD 10/18/2024 Telephone [facility] [address] [place] [phone] Yandy Frost from Last 3 Months Immunizations Name Administration [...] with others, in a hotel, in a nursing home, living outside on the street, on a [...] Mass Index 51.45 12/12/2024 3:20 PM EST Plan of Treatment Upcoming Encounters Date Type Department Care Team (Late st Contact Info) Description 01/31/2025 2:15 PM EDT Office Visit [facility] [address] [place] [phone] Gisselle Keyes MD [address] [place] [address] Health Maintenance Due Date Last Done Comments CT Colonography 1970 FIT DNA/Cologuard 1968 FIT 1970 FOBT 1970 Sigmoidoscopy 1970 Hepatitis A Vaccines (2 of 2 - Risk 2-dose series) 05/31/2013 12/01/2012 Hepatitis B Vaccines (3 of 3 - 19+ 3-dose series) 05/31/2013 12/29/2012, 12/01/2012 Zoster Vaccines (1 of 2) 2018 COVID-19 Vaccine ( - 2023-2 5 season) 2024 Influenza Vaccine (#1) 2024 7, 08/11/2012 Dental Oral Exam 09/30/2024 03/30/2024 Dental Prophylaxis 09/30/2024 03/30/2024 SDOH Screening 06/20/2025 06/20/2024 Depression Screening 07/05/2025 07/05/2024, 07/05/2024 Dental X-Ray: Bitewings 08/30/2025 08/29/20 24, 03/30/2024, 01/13/2023 Alcohol/Substance Use Screening 12/12/2025 12/12/2024 Tobacco Screening 12/17/2025 12/17/2024 Colonoscopy 07/17/2027 07/17/2024 Colorectal Cancer Screening 07/17/2027 Dental X-Ray: Full Mouth 08/21/2027 024, 03/30/2024, 03/15/2023 Lipid Panel 04/04/2028 04/04/2023, 01/28/2023 DTaP/Tdap/Td Vaccines (3 - T d or Tdap) 07/05/2034 07/05/2024, 05/24/2013 RSV Patients and Patients Aged 60 years or older (1 - 1-dose 75+ series) 2043 HIV Screening Completed 04/04/2023 Hepatitis C Screening [...] PM EST) Influenza A PCR NEGATIVE Negative [facility] Influenza B PCR NEGATIVE Negative [facility] Resp Syncy Virus RNA Qual PCR NEGATIVE Negative [facility] SARS COV2 PCR NEGATIVE Negative [facility] Comment:All test results mus t [...] use by authorized laboratories.Testing performed on the [employer] GeneXpert utilizingreal-time RT-PCR.All SARS CoV2 and positive influenza A/B results arereported to [facility]. 12/10/2024 1:38 PM EST 12/10/2024 2:20 PM EST us Generic External Data Provider LAB MICROBIOLOGY - GENERAL ORDERABLES Final Result [facility] [address] [place] [address] [phone] * (ABNORMAL) CBC auto differential (12/10/2024 1:38 PM EST) White Blood Count 12.5(H) 4.8 - 10.8 X10*3/uL [facility] Red Blood Count 4.61 4.60 - 5.80 X10*6/uL [facility] Hemoglobin 14.8 14.0 - 18.0 g/dl [facility] Hematocrit 44.1 42.0 - 52.0 % [facility] Mean Corpuscular Volume 95.7 80.0 - 98.0 fL [facility] Mean Corpuscular Hemoglobin 32.1 27.0 - 33.0 pg [facility] Mean Corpuscular HGB Conc 33.6 31.0 - 36.0 g/dl [facility] Red Cell Distribution Width 11.4 11.0 - 16.0 % [facility] Platelet Count 262 160 - 400 X10*3/uL [facility] Mean Platelet Volume 10.8 9.4 - 12.4 fL [facility] Neutrophils Percent Auto 79.1(H) 45 - 73 % [facility] Imm Gran Pct Auto 0.3 0.0 - 0.4 % [facility] Lymphocytes Percent Auto 12.3(L) 20 - 40 % [facility] Monocytes Percent Auto 6.8 2 - 11 % [facility] Eosinophils Percent Auto 1.2 0 - 4 % [facility] Basophils Percent Auto 0.3 0 - 2 % [facility] NRBC Pct Auto 0.0 0.0 - 0.2 /100WBC [facility] Neutrophils Absolute Auto 9.9(H) 2.0 - 8.3 x10*3/uL [facility] Imm Gran Abs Auto 0.04(H) 0.00 - 0.03 X10*3/uL [facility] Lymphocytes Absolute Auto 1.5 1.2 - 4.9 X10*3/uL [facility] Monocytes Absolute Auto 0.9 0.1 - 1.2 X10*3/uL [facility] Eosinophils Absolute Auto 0.2 0.0 - 0.4 X10*3/uL [facility] Basophils Absolute Auto 0.0 0.0 - 0.2 X10*3/uL [facility] NRBC Abs Auto 0.000 0.0 - 0.012 X10*3/uL [facility] 12/10/2024 1:38 PM EST 12/10/2024 2:20 PM EST us Generic External Data Provider LAB BLOOD ORDERAB LES Final Result [facility] [address] [place] [phone] * B Type Natriuretic Peptide (BNP) (12/10/2024 1:38 PM EST) B Type Natriuretic Peptide 17 <100 pg/mL [facility] Comment:For those patients w ho are being treated with Natrecor(nesiritide, recombinant BNP), BNP testing should beperformed at least two hours post treatment in order toensure that only endogenous levels of BNP are detected. 12/10/2024 1:38 PM EST 12/10/2024 2:20 PM EST us Generic External Data Provider LAB BLOOD ORDERAB LES Final Result Performing Organization Address [facility] Co de Phone Number [facility] [address] [place] [phone] * Lipase (12/10/2024 1:38 PM EST) Lipase 24 8 - 78 U/L [facility] 12/10/2024 1:38 PM EST 12/10/2024 2:20 PM EST Generic External Data Provider LAB BLOOD ORDERAB LES Final Result Performing Organization Address [facility] Phone Number [facility] [address] [place] [phone] * (ABNORMAL) Hepatic Function Panel (12/10/2024 1:38 PM EST) Bilirubin, Total 0.8 0.0 - 1.0 mg/dL [facility] Bilirubin, Direct 0.2 0.0 - 0.5 mg/dL [facility] Aspartate Amino Transferase 38(H) 5 - 37 U/L [facility] Comment:Slight Hemolysis.Int erpret result with caution. Alanine Aminotransferase 31 0 - 40 U/L [facility] Total Protein 8.7(H) 6.5 - 8.0 g/dL [facility] Albumin Level 4.4 3.5 - 5.0 g/dL [facility] Alkaline Phosphatase 100 39 - 117 U/L [facility] 12/10/2024 1:38 PM EST 12/10/2024 2:20 PM EST Generic External Data Provider LAB BLOOD ORDERAB LES Final Result Performing Organization Address [facility] Co de Phone Number [facility] [address] [place] [phone] * (ABNORMAL) Basic Metabolic Panel (12/10/2024 1:38 PM EST) Sodium 139 135 - 145 mmol/L [facility] Potassium 4.0 3.3 - 5.1 mmol/L [facility] Comment:Slight Hemolysis.Int erpret result with caution. Chloride 109(H) 96 - 108 mmol/L [facility] Carbon Dioxide 24 22 - 29 mmol/L [facility] Anion Gap 10(L) 12 - 20 [facility] Urea Nitrogen (BUN) 15 9 - 16 mg/dL [facility] Creatinine, Serum 0.85 0.5 - 1.4 mg/dL [facility] Creatinine Clr Calc Pharmacy 164.2 [facility] Comment:eGFR (calculated fro m the MDRD study equation) and eCrCl(calculated from the Cockcroft-Gault equation) are based ondifferent parameters and may not yield comparable results.If eCrCl result is absurd, please check patient'sheight/weight. Estimated Glomerular Filt Rate >60 [facility] Comment:Chronic Kidney Disea se: Estimated GFR < 60 mL/min/1.41z8Mdckes Kidney Disease: Estimated GFR < 15 mL/min/1.73m2 Glucose 89 60 - 115 mg/dL [facility] Calcium 10.0 8.4 - 10.2 mg/dL [facility] 12/10/2024 1:38 PM EST 12/10/2024 2:20 PM EST us Generic External Data Provider LAB BLOOD ORDERAB LES Final Result [facility] [address] [place] [phone] [phone] * XR Chest 1 View (12/10/2024 9:48 AM EST) Anatomical Region Laterality Modality Chest Radiographic Madhavi ging 12/10/2024 9:48 AM EST Narrative 12/10/2024 10:18 AM EST ? [facility] [facility] ?[address] ?[place] [address] ?XRay Report ? Signed ? Patient: Rodriguezotis Justice,Franko ?MR ?? #: [id number] ? : 1970 ?Acct:[id number] ? Age/Sex: 54 / M ?ADM Date: 12/10/24 ? Loc: HO.ED ? Attending Dr: ? Ordering Physician: Generic ED Physician ?? Date of Service: 12/10/24 ?? Procedure(s): XR chest 1V ?? Accession Number(s): [id number] ? cc: Generic ED Physician; Gisselle Keyes [...] DD/ 0948 ? TD/TT: 12/10/24 1008 ? Tow Motor Driver: ? Procedure Note Leandro Prater - 12/10/[address] [address] XRay Report Signed Patient: Xavi Foy [facility] #: [id number] : 1970Acct:[id number] Age/Sex: 54 / MADM Date: 12/10/24 Loc: HO.ED Attending Dr: Ordering Physician: Alex ED Physician Date of Service: 12/10/24 Procedure(s): XR chest 1V Accession Number(s): [id number] cc: Generic ED Physician; Gisselle Keyes MD [...] Doug Bautista MD 12/10/2024 10:15 AM EST RP Dictated By: Doug Bautista MD Signed By: <Electronically signed by Doug Bautista MD in OV> 12/10/24 1015 DD/ 0948 TD/TT: 12/10/24 1008 Tow Motor Driver: [facility] External Provider IMG XR PROCEDURES Edited Result - Final * XR Foot 3+ Views Right (12/10/2024 9:48 AM EST) Anatomical Region Laterality Modality Lower Extremities, Foot Right Radiogra phic Imaging 12/10/2024 9:48 AM EST Narrative 12/10/2024 10:27 AM EST ? [facility] ?[address] ?[place] [address] ?XRay Report ? Signed ? Patient: Xavi Foy ?MR ?? #: [id number] ? : 1970 ?Acct:[id number] ? Age/Sex: 54 / M ?ADM Date: 02/10/25 ? Loc: HO.ED ? Attending Dr: ? Ordering Physician: Generic ED Physician ?? Date of Service: 12/10/24 ?? Procedure(s): XR foot RT min 3V ?? Accession Number(s): [id number] ? cc: Generic ED Physician; Gisselle Keyes [...] DD/ 0948 ? TD/TT: 12/10/24 1008 ? Tow Motor Driver: ? Procedure Note Moi, Image - 12/10/2024 [place] [address] XRay Report Signed Patient: Xavi Foy [facility] #: [id number] : 1970Acct:[id number] Age/Sex: 54 / MADM Date: 12/10/24 Loc: HO.ED Attending Dr: Ordering Physician: Generic ED Physician Date of Service: 12/10/24 Procedure(s): XR foot RT min 3V Accession Number(s): [id number] cc: Generic ED Physician; Gisselle Keyes MD [...] Doug Bautista MD 12/10/2024 10:22 AM EST RP Dictated By: Doug Bautista MD Signed By: <Electronically signed by Doug Bautista MD in OV> 12/10/24 1022 DD/ 0948 TD/TT: 12/10/24 1008 Tow Motor Driver: [facility] External Provider IMG XR PROCEDURES Edited Result - Final * XR Ankle 3+ Views Right (12/10/2024 9:48 AM EST) Anatomical Region Laterality Modality Lower Extremities, Ankle Right Radiogr aphic Imaging 12/10/2024 9:48 AM EST Narrative 12/10/2024 10:20 AM EST ? [facility] ?[address] ?[place] [address] ?XRay Report ? Signed ? Patient: Xavi Foy ?MR ?? #: [id number] ? : 1970 ?Acct:[id number] ? Age/Sex: 54 / M ?ADM Date: 12/10/24 ? Loc: HO.ED ? Attending Dr: ? Ordering Physician: Generic ED Physician ?? Date of Service: 12/10/24 ?? Procedure(s): XR ankle RT min 3V ?? Accession Number(s): [id number] ? cc: Generic ED Physician; Gisselle Keyes [...] DD/ 0948 ? TD/TT: 12/10/24 1008 ? Tow Motor Driver: ? Procedure Note Donchristianater, Image - 12/10/2024 [place] [address] XRay Report Signed Patient: Xavi Foy [facility] #: [id number] : 1970Acct:[id number] Age/Sex: 54 / MADM Date: 12/10/24 Loc: HO.ED Attending Dr: Ordering Physician: Generic ED Physician Date of Service: 12/10/24 Procedure(s): XR ankle RT min 3V Accession Number(s): [id number] cc: Generic ED Physician; Gisselle Keyes MD [...] Bautista MD in OV> 12/10/24 1018 DD/ TD/TT: 12/10/24 1008 Tow Motor Driver: [facility] External Provider IMG XR PROCEDURES Edited [...] PI, Integrase) (04/04/2023 9:29 AM EDT) Pathologist [facility] HIV 1 RNA, QN PCR NOT DETECTED copies/mL [facility], HIV 1 RNA, QN PCR NOT DETECTED Log copies/mL [facility] [employer] [facility], Comment: REFERENCE RANGE: NOT DETECTED copies/mL ?NOT DETECTED ??Log copies/mL This test was performed using Real-Time Polymerase Chain Reaction. Reportable range is 20 to 10,000,000 copies/mL (1.30-7.00 Log copies/mL). 04/04/2023 9:29 AM EDT 04/04/2023 9:30 AM EDT Narrative [facility] - 04/08/2023 3:00 PM EDT FASTING:UNKNOWN FASTING: UNKNOWN Aurelio Barajas [facility] LAB BLOOD ORDERABLES Final Res ult [facility] [address], [place] [address] [facility], [address] [place] [address] * Hepatitis C Antibody with Reflex to HCV, RNA, Quantitative, Real-Time PCR (04/04/2023 9:29 AM EDT) [facility] Hepatitis C Antibody NON-REACT KADE NON-REACT KADE [facility] [place] [facility] Index 0.15 <1.00 [facility] [place] [facility] Comment: HCV antibody was non-reactive. There is no laboratory evidence of HCV infection. In most cases, no further action is required. However, if recent HCV exposure is suspected, a test for HCV RNA (test code 98652) is suggested. For additional information please refer to http://[employer]en.Xiu.com/faq/QOZ20v7 (This link is being provided for informational/ educational purposes only.) Blood Venous blood specimen / Unknown 04/04/2023 9:29 AM EDT 04/04/2023 9:30 AM EDT Narrative [facility] - 04/08/2023 3:00 PM EDT FASTING:UNKNOWN FASTING: UNKNOWN Aurelio Barajas [facility] LAB BLOOD ORDERABLES Final Res ult [facility] [address], [place] [address] [facility] [place] [facility] [address] [place] [phone] * (ABNORMAL) Lipid Panel, Standard (04/04/2023 9:29 AM EDT) [facility] Cholesterol, Total 154 <200 mg/dL [facility] HDL Cholesterol 42 > OR = 40 mg/dL [facility] Triglycerides 163(H) <150 mg/dL [facility] LDL Cholesterol 86 mg/dL (calc) [facility] Comment: Reference range: <100 Desirable range <100 mg/dL for primary prevention; ?? <70 mg/dL for patients with CHD or diabetic patients with > or = 2 CHD risk factors. LDL-C is now calculated using the Jan calculation, which is a validated novel method providing better accuracy than the Friedewald equation in the estimation of LDL-C. David RAMON et al. ELGIN. 2013;310(19): 5176-8261 (http://education.[employer] Hotline/faq/SGH276) Chol/HDLC Ratio 3.7 <5.0 (calc) [facility] Non-HDL Cholesterol 112 <130 mg/dL (calc) [facility] Comment: For patients with diabetes plus 1 major ASCVD risk factor, treating to a non-HDL-C goal of <100 mg/dL (LDL-C of <70 mg/dL) is considered a therapeutic option. Blood Venous blood specimen / Unknown 04/04/2023 9:29 AM EDT 04/04/2023 9:30 AM EDT Narrative [facility] - 04/08/2023 3:00 PM EDT FASTING:UNKNOWN FASTING: UNKNOWN Aurelio DAVEY LAB BLOOD ORDERABLES Final Res ult [facility] [address], [place] [address] [facility] [place] [facility] [address] [place] [address] from Last 3 Months or Most Recently Relevant to Health Maintenance Insurance [facility] C[facility] DENTAL-[facility] MEDICAID STAND ADULT * Guarantor: Xavi Foy Account Type Relation to Patient Date of Phone Billing Address Personal/Family Self [facility] [place] [address] Care Teams Tare Weigher Relationship Specialty Start Date End Date Gisselle Keyes MD [address] [place] [address] [place] [address] PCP - General Internal Medicine 08/03/23
--- OUTSIDE RECORDS SUMMARY | 2025-01-08 10:41 | XMS_ITS | Encounter Summary ---
Author Organization [facility] Address [address] [place] [address] Care Team Providers Care Quality Compliance Manager Name Role Phone Nirali Reynolds MD Primary Care Provider Amelia Earl SENIOR ARCHITECTURAL DESIGNER Primary Care Provider [phone] [facility] Provider Larisa Baker SENIOR ARCHITECTURAL DESIGNER Primary Care Provider [phone] Gisselle Keyes MD Primary Care Pro vider Encounter Details Date Type Department Care Team (Late st Contact Info) Description 10/21/2022 Abstract [facility] [address] [place] [address] Larry Kemp DDS [address] [place], [place] [phone] Social History Tobacco Use Types Packs/Day Years [...] 01/31/2025 2:15 PM EDT Office Visit [facility] [address] [place] [address] Gisselle Keyes MD [address] [place] [address] documented as of this encounter Visit Diagnoses Not on filedocumented in this encounter Care Teams Quality Compliance Manager Relationship Specialty Start Date End Date Nirali Reynolds MD PCP - General Family Medicine 04/25/20 01/09/23 Amelia Corea FNP PCP - General Family Medicine 01/10/23 01/12/23 Aurelio Barajas AGNP PCP - General Family Medicine 01/13/23 07/20/23 Larisa Griffith FNP [address] [place] [address] PCP - General Family Medicine 07/21/23 08/02/23 Gisselle Keyes MD [address] [place] [address] PCP - General Internal Medicine 08/03/23 documented as of this encounter
== END 2025-01-08 09:47 | disposition home or self-care (01) ==
LOC: HO.HPS 09:29
PROVIDERS: PCP Student in an Organized Health Care Education/Training Program; Visit Provider Internal Medicine
DX: E66.01 Morbid (severe) obesity due to excess calories (principal); G47.33 Obstructive sleep apnea (adult) (pediatric); J45.909 Unspecified asthma, uncomplicated
CPT/HCPCS: 99213

== ENCOUNTER → 2025-01-08 09:28 | Outpatient (BNVA) | payer MEDICAID, SELFPAY | PROVIDERS: PCP Student in an Organized Health Care Education/Training Program; Visit Provider Internal Medicine | DX: G47.33 Obstructive sleep apnea (adult) (pediatric) (principal); J45.909 Unspecified asthma, uncomplicated; E66.01 Morbid (severe) obesity due to excess calories; Z68.43 Body mass index [BMI] 50.0-59.9, adult | CPT/HCPCS: 99212 ==

== ENCOUNTER 2025-04-23 09:21 | Outpatient (AMB) | payer MEDICAID, SELFPAY ==
[2025-04-23 09:29] VITALS: BP 142/90; PULSE 75; O2SAT 93; BMI 51.6
--- NOTE | 2025-04-23 09:29 | MHC.OFFVIS ---
Vital Signs 04/23/25 09:29 Height 6 ft 1 in Weight 391 lb 5.128 oz BMI 51.6 BP 142/90 H Blood Pressure Location Lt brachial Position Sitting Pulse 75 Pulse Source Pulse Oximeter Pulse Oximetry (%) 93 Oxygen Delivery Method Room Air Intake Visit Reasons: Obstructive sleep apnea Gas Maker Helper Required: Yes Gas Maker Helper Services: Gas Maker Helper Present Gas Maker Helper Name: Christiana Figueroa RMA Allergies No Known Allergies (No Known Allergies*) Allergy (Verified 04/23/25 09:40) Medication List - Last Reconciled 04/23/25 by Paul Leach MD albuterol sulfate 90 mcg/actuation (ProAir HFA) 2 puffs inhalation Q4-6H PRN amlodipine 5 mg PO DAILY budesonide-formoterol 160-4.5 mcg/actuation (Symbicort) 2 puffs inhalation BID citalopram 20 mg PO DAILY cyclobenzaprine 10 mg PO TID PRN gabapentin 300 mg PO Q8H hydrochlorothiazide 50 mg PO QAM lisinopril 20 mg PO DAILY quetiapine 200 mg PO DAILY tamsulosin 0.4 mg PO DAILY Do you need a note to return to daycare/school/sports/work: No HPI HPI Obstructive sleep apnea: Details: 54 YEARS OLD, MORBIDLY OBESE, VERY PLEASANT GENTLEMAN IS HERE FOR FOLLOW-UP. BRONCHIAL ASTHMA IS WELL CONTROLLED AND HE USES SYMBICORT 2 PUFFS B.I.D. HARDLY NEEDS TO USE ALBUTEROL. WEIGHT: NO PROGRESS LOST ONLY 2 LB . PHYSICALLY NOT VERY ACTIVE. SLEEP APNEA: WELL CONTROLLED WITH THE USE OF BPAP WHICH HE USES VERY REGULARLY EVERY NIGHT. HE CLAIMS THAT HE SLEEPS LIKE A LOG FOR 8 HOURS EVERY NIGHT. CITES NO ISSUES WITH THE MASK OR WITH CPAP DEVICE. [facility] Medical History Asthma Nocturnal hypoxemia due to obesity ALFREDITO (obstructive sleep apnea) Dyspnea on exertion Somnolence, daytime Morbid obesity HTN (hypertension) Depression Surgical History History of hernia repair Family History Mother Skin cancer Social History Household Members: None Alcohol intake: never Patient Tobacco Use Status: Never used Tobacco Review of Systems Const All systems reviewed & are unremarkable except as noted in HPI and below Eyes Reports no additional complaints ENT Reports no additional complaints Card Denies chest pain, Denies irregular heart rhythm and Denies leg edema Resp Reports as per HPI GI Reports no additional complaints Reports no additional complaints Musc Reports back pain and Reports myalgias Skin/Breast Reports system reviewed and no additional complaints, except as documented Neuro Reports no additional complaints Psych Reports depression Endo Reports no additional complaints Aller/Immun Reports no additional complaints Physical Exam Vital Signs: Last Vital Signs Pulse 75 04/23/25 09:29 BP 142/90 H 04/23/25 09:29 Pulse Ox 93 04/23/25 09:29 Oxygen Delivery Method Room Air 04/23/25 09:29 BMI result Body Mass Index 51.6 He is grossly overweight with rounded face and short and obese neck Const General: comfortable, no acute distress, alert and awake Orientation/consciousness: patient oriented x3 HEENT Head: Yes normal to inspection General nose exam: No nasal polyps present and No nasal discharge present Face and sinus: Yes sinuses nontender Mouth: oropharynx abnormals (Very narrow oropharynx, Mallampati class 4) Throat: Yes posterior oropharynx normal Eyes General: appearance normal, both eyes and all related structures Neck Neck: Yes normal visual inspection, Yes no lymphadenopathy, Yes trachea midline, Yes no JVD and Yes other (Neck circumference 22 in) Thyroid: Thyroid normal Chest Chest palpation & inspection: normal inspection of the chest, normal palpation of entire chest wall and no tenderness Resp Other: Percussion note is not perceptible because of the thick chest wall. Breath sounds are diminished throughout the chest especially over the basilar areas. No wheezes or crepitations are heard Cardio Palpation: PMI not normal (Not palpable) Rate: regular rate Rhythm: regular rhythm Heart sounds: no gallops and no murmurs Peripheral pulses: Peripheral pulses 2+ throughout GI Palpation (GI): Soft to palpation, nontender, No hepatosplenomegaly present, no masses and Other GI palpation findings present Auscultation: normal bowel sounds Back/Spine/Pelvis Thoracic/Lumbar Spine: thoracic and lumbar spine normal to inspection and thoraco-lumbar ROM limited Skin General skin exam: no rashes or lesions noted Neuro General: patient oriented x3 and no focal motor deficits Cranial nerves: Yes CN's II-XII intact bilaterally Extrem General: Yes normal to inspection, Yes no clubbing, cyanosis or edema and Yes no calf tenderness Psych Appearance: grossly normal and well kempt Speech and movement: Normal speech and movement present Results Reviewed Results Reviewed: COMPLIANCE REPORT FOR THE LAST 90 NIGHTS IS REVIEWED AND HE HAS USED 95% OF THE NIGHTS AVERAGE USAGE PER NIGHT 8 HOURS 10 MINUTES PRESSURE SETTING 18/14 CM. THERE IS MINIMAL AIR LEAK ISSUE. RESIDUAL AHI ONLY 3.9 WHICH IS NOT SIGNIFICANT Assessment & Plan Assessment & Plan (1) Morbid obesity: Comment: Morbid obesity is very obvious in his case, he has gradually put on weight in the last five to six years. He is now trying to watch his diet, but still not physically active. Not able to participate in weight management program. Code(s): E66.01 - Morbid (severe) obesity due to excess calories Category: Medical Plan: Weight loss is stressed. Discussed about the diet and need to walk 2-3 miles every day. (2) Asthma: Comment: HAS MILD INTERMITTENT BRONCHIAL ASTHMA BUT HAS BEEN CONTROLLED WITH THE USE OF BUDESONIDE-FORMOTEROL. Code(s): J45.909 - Unspecified asthma, uncomplicated Category: Medical Plan: Advised to continue using budesonide-Formoterol 160-4.52 puffs b.i.d. and use albuterol HFA. Only p.r.n. (3) ALFREDITO (obstructive sleep apnea): Comment: PER HOME SLEEP STUDY HE HAS VERY SEVERE OBSTRUCTIVE APNEA, WITH NOCTURNAL HYPOXEMIA HE HAS UNDERGONE CPAP TITRATION IN THE SLEEP LAB AND SUCCESSFULLY TREATED WITH PRESSURE OF 18/14 CM USING N20 MASK OF LARGE SIZE HIS COMPLIANCE IS EXCELLENT, AND HE CLAIMS TO BE BENEFITING , GETTING 8 HOURS GOOD SLEEP EVERY NIGHT. Code(s): G47.33 - Obstructive sleep apnea (adult) (pediatric) Category: Medical Plan: CONTINUE USING THE BIPAP 18/14 CM EVERY NIGHT. (4) Nocturnal hypoxemia due to obesity: Comment: ALONG WITH SEVERE OBSTRUCTIVE SLEEP APNEA HE HAS PERSISTENT NOCTURNAL HYPOXEMIA WITH AVERAGE O2 SAT 89%. 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 IT IS ASYMPTOMATIC AND EXPECTED TO RESOLVE WITH CONTINUED USE OF BIPAP AND WEIGHT LOSS. Code(s): E66.9 - Obesity, unspecified; G47.36 - Sleep related hypoventilation in conditions classified elsewhere Category: Medical Plan: NO O2 SUPPLEMENTATION NEEDED Coding Level of Care Code Est Pt Level 3 (29310) Diagnoses Morbid obesity E66.01 Asthma J45.909 ALFREDITO (obstructive sleep apnea) G47.33 Nocturnal hypoxemia due to obesity E66.9; G47.36
--- OUTSIDE RECORDS SUMMARY | 2025-04-23 09:59 | XMS_ITS | Encounter Summary ---
Author Organization [employer] [facility] Address [address] [place] [address] 7t [place] [address] Care Team Providers Care Watcher Automat Long Goods Name Role Phone Aurelio Barajas Primary Care Provider Larisa Baker Primary Care Provider [phone] Gisselle Keyes MD Primary Care Pro vider Encounter Details Date Type Department Care Team (Late Contact Info) Description 05/27/[address] [facility] MEDICINE [address] [place] [phone] Aurelio Barajas AGNP Social History Tobacco Use [...] Encounters Date Type Department Care Team (Late Contact Info) Description 04/24/2025 2:00 PM EDT Office Visit [facility] MEDICINE [address] [place], [place] [phone] Gisselle Keyes MD [address] [place], [place] [phone] 07/26/2025 1:45 PM EDT Office Visit [facility] MEDICINE [address] [place] [address] Gisselle Keyes MD [address] [place] [phone] documented as of this encounter Visit Diagnoses Not on filedocumented in this encounter Additional Health Concerns Assessment Noted Time PHQ-9 Depression Total Score: 1 03/30/20 3:34 PM EDT documented as of this encounter Care Teams Watcher Automat Long Goods Relationship Specialty Start Date End Date Aurelio Barajas AGNP PCP - General Family Medicine 01/13/23 07/20/23 Larisa Griffith FNP [address] [place] [address] PCP - General Family Medicine 07/21/23 08/02/23 Gisselle Keyes MD [address] [place] [address] PCP - General Internal Medicine 08/03/23 documented as of this encounter
== END 2025-04-23 09:41 | disposition home or self-care (01) ==
LOC: HO.HPS 09:21
PROVIDERS: PCP Student in an Organized Health Care Education/Training Program; Visit Provider Internal Medicine
DX: E66.01 Morbid (severe) obesity due to excess calories (principal); J45.909 Unspecified asthma, uncomplicated; G47.33 Obstructive sleep apnea (adult) (pediatric); E66.9 Obesity, unspecified; G47.36 Sleep related hypoventilation in conditions classified elsewhere
CPT/HCPCS: 99213

== ENCOUNTER → 2025-04-23 09:21 | Outpatient (BNVA) | payer MEDICAID, SELFPAY | PROVIDERS: PCP Student in an Organized Health Care Education/Training Program; Visit Provider Internal Medicine | DX: E66.01 Morbid (severe) obesity due to excess calories (principal); J45.909 Unspecified asthma, uncomplicated; G47.33 Obstructive sleep apnea (adult) (pediatric); E66.9 Obesity, unspecified; G47.36 Sleep related hypoventilation in conditions classified elsewhere | CPT/HCPCS: 99212 ==

== ENCOUNTER → 2025-08-06 08:44 | Outpatient (REF) | payer MEDICAID, SELFPAY ==
[2025-08-06 09:12] LABS: MANUAL DIFF FLAG NO
--- OUTSIDE RECORDS SUMMARY | 2025-08-06 09:24 | XMS_ITS | Encounter Summary ---
Author Organization [employer] [facility] Address [address] [facility] 7t [place] [address] Care Team Providers Care Camouflage Assembler Name Role Phone Nirali Reynolds MD Primary Care Provider Amelia Earl [facility] Primary Care Provider Melba [facility] Primary Care Provider Larisa Baker SKIVER MACHINE OPERATOR Primary Care Provider +- Gisselle Keyes MD Primary Care Pro vider Encounter Details Date Type Department Care Team (Latest Contact Info) Description 08/30/[address] [facility] CONVERSIONS Dental, Provider, DDS Social History [...] Care Team (Late st Contact Info) Description 08/12/2025 2:45 PM EDT Office Visit [facility] MEDICINE [address] [place], [place] [phone] Lorelei Birmingham NP [address] [place], [place] [phone] documented as of this encounter Visit Diagnoses Not on filedocumented in this encounter Care Teams Camouflage Assembler Relationship Specialty Start Date End Date Nirali Reynolds MD PCP - General Family Medicine 04/25/20 01/09/23 Amelia Corea FNP PCP - General Family Medicine 01/10/23 01/12/23 Aurelio Barajas AGNP PCP - General Family Medicine 01/13/23 07/20/23 Larisa Griffith FNP [address] [place], [place] [phone] PCP - General Family Medicine 07/21/23 08/02/23 Gisselle Keyes MD [address] [place], [place] [phone] PCP - General Internal Medicine 08/03/23 documented as of this encounter
--- OUTSIDE RECORDS SUMMARY | 2025-08-06 09:24 | XMS_ITS | Encounter Summary ---
Author Organization [employer] Address [address] [facility] 7t [place] [address] Care Team Providers Care Brass Burnisher Name Role Phone Aurelio Barajas Primary Care Provider Larisa Baker Primary Care Provider [phone] Gisselle Keyes MD Primary Care Pro vider Reason for Visit * Reason Onset Date Comments Appointment 03/02/2023 Encounter Details Date Type Department Care Team (Late st Contact Info) Description 03/02/2023 Telephone [facility] ADULT DENTAL [address] [place] [address] Chanda Castillo DDS [address] [place] [address] Appointment Social History Tobacco Use Types Packs/Day [...] Description 08/12/2025 2:45 PM EDT Office Visit [facility] MEDICINE [address] [place], [place] [phone] Lorelei Birmingham NP [address] [place] [address] documented as of this encounter Visit Diagnoses Not on filedocumented in this encounter Care Teams Brass Burnisher Relationship Specialty Start Date End Date Aurelio Barajas AGNP PCP - General Family Medicine 01/13/23 07/20/23 Larisa Griffith FNP [address] [place], [place] [phone] PCP - General Family Medicine 07/21/23 08/02/23 Gisselle Keyes MD [address] [place], [place] [phone] PCP - General Internal Medicine 08/03/23 documented as of this encounter
--- OUTSIDE RECORDS SUMMARY | 2025-08-06 09:24 | XMS_ITS | Encounter Summary ---
Author Organization [employer] [facility] Address [address] [facility] 7t [place] [address] Care Team Providers Care Gel Coater Name Role Phone Nirali Reynolds MD Primary Care Provider Amelia Earl [facility] Primary Care Provider Melba Aurelio Macias Primary Care Provider Larisa Baker RODEO PERFORMER Primary Care Provider [phone] Gisselle Keyes MD Primary Care Pro vider Encounter Details Date Type Department Care Team (Late st Contact Info) Description 10/21/2022 Abstract [facility] ADULT DENTAL [address] [place] [address] Larry Kemp DDS [address] [place] [address] Social History Tobacco Use Types Packs/Day Years [...] Description 08/12/2025 2:45 PM EDT Office Visit [facility] MEDICINE [address] [place] [address] Lorelei Birmingham, BLANCO [address] [place] [address] documented as of this encounter Visit Diagnoses Not on filedocumented in this encounter Care Teams Gel Coater Relationship Specialty Start Date End Date Nirali Reynolds MD PCP - General Family Medicine 04/25/20 01/09/23 Amelia Corea FNP PCP - General Family Medicine 01/10/23 01/12/23 Aurelio Barajas AGNP PCP - General Family Medicine 01/13/23 07/20/23 Larisa Griffith FNP [address] [place] [address] PCP - General Family Medicine 07/21/23 08/02/23 Gisselle Keyes MD [address] [place] [address] PCP - General Internal Medicine 08/03/23 documented as of this encounter
--- OUTSIDE RECORDS SUMMARY | 2025-08-06 09:24 | XMS_ITS | Encounter Summary ---
Author Organization [employer] Address [address] [facility] [address] [place] [address] Care Team Providers Care Solar Project Engineer Name Role Phone Gisselle Keyes MD Primary Care Pro vider Encounter Details Date Type Department Care Team (Late st Contact Info) Description 10/19/2024 Orders Only [facility] MEDICINE [address] [place] [address] Provider, MD Vanda Social History Tobacco Use [...] Description 08/12/2025 2:45 PM EDT Office Visit [facility] MEDICINE [address] [place], [place] [phone] Lorelei Birmingham NP [address] [place], [place] [phone] documented as of this encounter Procedures Procedure Name Priority Date/Time Associated Diagnosis Comments COLONOSCOPY Routine 07/17/2024 1:24 PM EDT documented in this encounter Results * Hm Colonoscopy (07/17/2024 1:24 PM EDT) us Historical Provider HEALTH MAINTENANCE Final Result documented in this encounter Visit Diagnoses Not on filedocumented in this encounter Additional Health Concerns Assessment Noted Time PHQ-9 Depression Total Score: 0 07/05/20 24 1:45 PM EDT documented as of this encounter Care Teams Solar Project Engineer Relationship Specialty Start Date End Date Gisselle Keyes MD [address] [place], [place] [phone] PCP - General Internal Medicine 08/03/23 documented as of this encounter
--- OUTSIDE RECORDS SUMMARY | 2025-08-06 09:24 | XMS_ITS | Encounter Summary ---
Author Organization [facility] Address [address] [facility] 7t [place] [address] Care Team Providers Care Cap Machine Operator Name Role Phone Aurelio Barajas Primary Care Provider Unavail Larisa Chaidez Primary Care Provider [phone] Gisselle Keyes MD Primary Care Pro vider Encounter Details Date Type Department Care Team (Late Contact Info) Description 05/27/2023 Abstract [facility] MEDICINE [address] [place] [address] Aurelio Barajas AGNP Social History Tobacco Use [...] Department Care Team (Late Contact Info) Description 08/12/2025 2:45 PM EDT Office Visit [facility] MEDICINE [address] [place], [place] [phone] Lorelei Birmingham NP [address] [place], [place] [phone] documented as of this encounter Visit Diagnoses Not on filedocumented in this encounter Additional Health Concerns Assessment Noted Time PHQ-9 Depression Total Score: 1 03/30/20 3:34 PM EDT documented as of this encounter Care Teams Cap Machine Operator Relationship Specialty Start Date End Date Aurelio Barajas AGNP PCP - General Family Medicine 01/13/23 07/20/23 Larisa Griffith FNP [address] [place] [address] PCP - General Family Medicine 07/21/23 08/02/23 Gisselle Keyes MD [address] [place], [place] [phone] PCP - General Internal Medicine 08/03/23 documented as of this encounter
--- OUTSIDE RECORDS SUMMARY | 2025-08-06 09:25 | XMS_ITS | Encounter Summary ---
Author Organization [employer] Address [address] [facility] 7 [place] [address] Care Team Providers Care Web Production Designer Name Role Phone Gisselle Keyes MD Primary Care Pro vider Reason for Visit * Reason Comments Pre-visit Planning SDOH was already com pleted Encounter Details Date Type Department Care Team (Late st Contact Info) Description 08/05/2025 Patient Outreach [facility] [address] [place], [place] [phone] Gisselle Keyes MD [address] [place] [address] Pre-visit Planning (SDOH was already completed ) Social History Tobacco Use Types Packs/Day Years [...] Date Recorded Patient Health Questionnaire-9 Score 0 04/24/2025 Patient Health Questionnaire-9 Score 0 04/24/2025 Last PHQ-9: Questionnaire Data Not on file 0 04/24/2025 Housing Stability Answer Date Recorded What is your housing situation today? I have sherry bledsoe 04/24/[address] you li ve. Do you have problems with any of the following? None of the above 04/24/2025 Food Insecurity Answer Date Recorded Within the [...] from getting things needed for daily living? No 04/24/2025 Utilities Answer Date Recorded In the past 12 months, has t he Revl, gas, oil or water [employer] threatened to shut off services in your home? No 06/20/2024 Depression Answer Date Recorded Patient Health Questionnaire-2 Score 0 04/24/2025 Internet Access Answer Date Recorded Internet Access Q1 Yes 06/24/2025 Internet Access Q2 Not on file 06/24/2025 Sex and Gender Information Value Date Recorded Sex Assigned at Male 08/30/2022 10:21 AM EDT Legal Sex Male 10:21 AM EDT Gender Identity Male 08/30/2022 10:21 AM EDT Sexual Orientation Straight 08/30/2022 10 :21 AM EDT documented as of this encounter Progress Notes * Fifi Cardenas - 08/05/2025 2:18 PM EDT MARY Kirkpatrick placed successful outbound call to patient for pre-visit planning. Patient name and confirmed. Patient confirms appt date and time, and has transportation arrangements. Biggest concern for appointment at this time is no concerns. Appropriate screenings completed in anticipation ofappointment. documented in this encounter Plan of Treatment Upcoming Encounters Date Type Department Care Team (Late st Contact Info) Description 08/12/2025 2:45 PM EDT Office Visit [facility] MEDICINE [address] [place] [address] Lorelei Birmingham NP [address] [place] [address] documented as of this encounter Visit Diagnoses Not on filedocumented in this encounter Additional Health Concerns Assessment Noted Time PHQ-9 Depression Total Score: 0 04/24/20 2:16 PM EDT documented as of this encounter Care Teams Web Production Designer Relationship Specialty Start Date End Date Gisselle Keyes MD [address] [place] [phone] PCP - General Internal Medicine 08/03/23 documented as of this encounter
--- OUTSIDE RECORDS SUMMARY | 2025-08-06 09:25 | XMS_ITS | Encounter Summary ---
Author Organization [employer] Address [address] [facility] 7t [place] [address] Care Team Providers Care Stock Hanger Name Role Phone Gisselle Keyes MD Primary Care Pro vider Reason for Visit * Reason Comments Med Refill Encounter Details Date Type Department Care Team ([facility] st Contact Info) Description 04/19/2025 Refill [facility] [address] [place] [address] Gisselle Keyes MD [address] [place] [address] Social History Tobacco Use Types Packs/Day Years [...] with others, in a hotel, in a penitentiary, living outside on the street, on a [...] Description 08/12/2025 2:45 PM EDT Office Visit [facility] MEDICINE [address] [place] [address] Lorelei Birmingham NP [address] [place] [address] documented as of this encounter Visit Diagnoses Not on filedocumented in this encounter Additional Health Concerns Assessment Noted Time PHQ-9 Depression Total Score: 0 07/05/20 24 1:45 PM EDT documented as of this encounter Care Teams Stock Hanger Relationship Specialty Start Date End Date Gisselle Keyes MD [address] [place] [address] PCP - General Internal Medicine 08/03/23 documented as of this encounter
--- OUTSIDE RECORDS SUMMARY | 2025-08-06 09:25 | XMS_ITS | Clinical Summary ---
Author Organization [employer] Address [address] [facility] [address] [place] [address] Care Team Providers [facility] Director Name Role Phone Gisselle Keyes MD Primary Care Pro vider Allergies No known active allergies Medications Blood Pressure kitIndications :Hypertension, unspecified type 1 kit 2 times daily. 1 kit 05/27/20 23 Active amLODIPine (Norvasc) 5 MG tablet Take 1 tablet (5 mg) by mouth Once per day. 30 tablet 11 04/10/20 24 Active acetaminophen (Tylenol) 500 MG tablet Take 1 tablet (500 mg) by mouth every 6 (six) hours if needed for mild pain for up to 20 doses. 20 tablet 08/20/20 24 Active Bisacodyl EC 5 MG EC tablet TAKE 4 TABLETS BY MOUTH ONCE AT NOON THE DAY BEFORE YOUR COLONOSCOPY 07/13/20 24 Active tamsulosin (Flomax) 0.4 MG 24 hr capsule TAKE 1 CAPSULE BY MOUTH DAILY 30 MINUTES AFTER same MEAL EVERY DAY 90 capsule 1 04/22/20 25 Active QUEtiapine (SEROquel) 200 MG tabletIndicati ons:Severe major depression with psychotic features (CMS/HCC) (HCC) TAKE 1 TABLET BY MOUTH EVERY DAY 90 tablet 1 04/22/20 25 Active albuterol (Ventolin HFA) 108 (90 Base) MCG/ACT inhaler Inhale 1 puff every 6 (six) hours if needed for wheezing. 18 g 1 04/24/20 25 Active Symbicort 160-4.5 MCG/ACT inhaler INHALE 2 PUFFS TWICE DAILY IN THE MORNING AND AT BEDTIME. RINSE MOUTH AFTER USING. DO NOT SWALLOW. 10.2 g 1 06/28/20 25 Active lisinopril-hyd roCHLOROthiazi de 20-25 MG tablet Take 1 tablet by mouth Once per day. 90 tablet 07/16/20 25 026 Active lisinopril-hyd roCHLOROthiazi de 20-25 MG tablet Take 1 tablet by mouth Once per day. 90 tablet 04/24/20 25 025 Discontinued(R eorder (will not trigger notification to Pharmacy)) Active Problems Problem Noted Date Diagnosed Date Obstructive sleep apnea hypopnea, severe 025 Overview (12/17/2024): AHI 53 on home PSG 07/2024 Assessment & Plan (12/17/2024 9:58 AM EST): Having in lab study to titrate CPAP 12/14/24, then will begin at home therapy Hepatic steatosis 12/17/2024 Bone loss of mandible 08/20/2024 Foreign body [...] 40 mg/dL 42 41 Triglycerides <150 mg/dL 163 High 172 High LDL Cholesterol mg/dL (calc) 86 97 CM Comment: Reference range: <100 Desirable range <100 mg/dL for primary prevention; <70 mg/dL for patients with CHD or diabetic patients with > or = 2 CHD risk factors. LDL-C is now calculated using the David-Mikie calculation, which is a validated novel method providing better accuracy than the Friedewald equation in the estimation of LDL-C. David RAMON et al. ELGIN. 2013;310(19): 0576-1236 (http://education.Tibersoft.Montage Talent/faq/ILT242) Chol/HDLC Ratio <5.0 (calc) 3.7 4.0 Non-HDL [...] = 40 mg/dL 41 Triglycerides <150 mg/dL 172 High LDL Cholesterol mg/dL (calc) 97 The 10-year [...] that we do not do colonoscopies on [facility] grounds. Referral to GI sent for colorectal cancer screening Vacc.: discuss at follow up Eye exam: Denies opthamology referral Dental home: last visit 2 weeks ago, [facility] dental. Assessment & Plan (01/21/2023 4:36 PM EDT): Ordered some blood work for Xavi' upcoming TP visit. F/up 2 months for TP Severe major depression with psychotic features (CMS/HCC) 03/15/2013 Impaired fasting blood sugar 12/01/2012 Abnormal [...] at home but denies dizziness. I gave Alexis BP log, he is to check his [...] Encounters Date Type Department Care Team Description 08/05/2025 Patient Outreach [facility] [address] [place] [address] Gisselle Keyes MD Pre-visit Planning (SDOH was already completed ) 07/22/2025 Orders Only [facility] [address] [place] [id number] Gisselle Keyes MD Routine health maintenance (Primary Dx) 07/22/2025 Telephone [facility]INE [address] [place] [phone] Gisselle Keyes MD call back needed 07/16/2025 Refill [facility] [address] [place] [address] Gisselle Keyes MD 06/28/2025 Refill [facility] [address] [place] [address] Gisselle Keyes MD 05/27/2025 Telephone [facility] [address] [place] [address] Gisselle Keyes MD Appointment from Last 3 Months Immunizations Immunization Administration Dates Next Due Hep A, Adult [...] Sign Reading Time Taken Comments Blood Pressure 110/72 04/24/2025 2:06 PM EDT Pulse 82 04/24/2025 2:06 PM EDT Temperature 36.3 C (97.3 F) 04/24/2025 2:06 PM EDT Respiratory Rate 18 04/24/2025 2:06 PM EDT Oxygen Saturation 94% 04/24/2025 2:06 PM EDT Inhaled Oxygen Concentration - - Weight 178 kg (391 lb 6.4 oz) 04/24/2025 2:06 PM EDT Height 185.4 cm (6' 1 ) 04/24/2025 2:06 PM EDT Body Mass Index 51.64 04/24/2025 2:06 PM EDT Plan of Treatment Upcoming Encounters Date Type Department Care Team (Late st Contact Info) Description 08/12/2025 2:45 PM EDT Office Visit [facility] [address] [place], [place] [phone] Lorelei Birmingham NP [address] [place] [address] Health Maintenance Due Date Last Done Comments CT Colonography 1970 FIT DNA/Cologuard 1970 FIT 1970 FOBT 1970 Sigmoidoscopy 1970 Hepatitis A Vaccines (2 of 2 - Risk 2-dose series) 05/31/2013 12/01/2012 Hepatitis B Vaccines (3 of 3 - 19+ 3-dose series) 05/31/2013 12/29/2012, 12/01/2012 Zoster Vaccines (1 of 2) 2018 Dental Oral Exam 09/30/2024 03/30/2024 Dental Prophylaxis 09/30/2024 03/30/2024 COVID-19 Vaccine (1 - 2023-2 5 season) 2025 Influenza Vaccine (#1) 2025 7, 08/11/2012 Dental X-Ray: Bitewings 08/30/2025 08/29/20 24, 03/30/2024, 01/13/2023 Alcohol/Substance Use Screening 12/12/2025 12/12/2024 Tobacco Screening 01/17/2026 01/17/2025 Depression Screening 04/24/2026 04/24/2025, 04/24/2025 Disability Screening 04/24/2026 04/24/2025 SDOH Screening 04/24/2026 04/24/2025 Colonoscopy 07/17/2027 07/17/2024 Colorectal Cancer Screening 07/17/2027 [...] patient's age to complete this topic Meningococcal B Vaccine Aged Out No l onger eligible based on patient's age to complete [...] Procedure Name Priority Date/Time Associated Diagnosis Comments BITEWING - SINGLE RADIOGRAPHIC IMAGE Routine 08/29/2024 [...] Recently Relevant to Health Maintenance Results * Hm Colonoscopy (07/17/2024 1:24 PM EDT) Historical Provider HEALTH MAINTENANCE Final Result * HIV-1 RNA, Quantitative, Real-Time PCR with Reflex to Genotype (RTI, PI, Integrase) (04/04/2023 9:29 AM EDT) HIV 1 RNA, QN PCR NOT DETECTED copies/mL [facility], HIV 1 RNA, QN PCR NOT DETECTED Log copies/mL [facility], Comment: REFERENCE RANGE: NOT DETECTED copies/mL NOT DETECTED Log copies/mL This test was performed using Real-Time Polymerase Chain Reaction. Reportable range is 20 to 10,000,000 copies/mL (1.30-7.00 Log copies/mL). 04/04/2023 9:29 AM EDT 04/04/2023 9:30 AM EDT Narrative [facility] - 04/08/2023 3:00 PM EDT FASTING:UNKNOWN FASTING: UNKNOWN Aurelio [facility] LAB BLOOD ORDERABLES Final Res ult [facility] [address], [place] [address] [facility], [address] [place] [address] * Hepatitis C Antibody with Reflex to HCV, RNA, Quantitative, Real-Time PCR (04/04/2023 9:29 AM EDT) [facility] Hepatitis C Antibody NON-REACT KADE NON-REACT KADE [facility] [place] [facility] Index 0.15 <1.00 [facility] [place] [facility] Comment: HCV antibody was non-reactive. There is no laboratory evidence of HCV infection. In most cases, no further action is required. However, if recent HCV exposure is suspected, a test for HCV RNA (test code 48113) is suggested. For additional information please refer to http://education.Relationship Analytics/faq/UMG61g4 (This link is being provided for informational/ educational purposes only.) Blood Venous blood specimen / Unknown 04/04/2023 9:29 AM EDT 04/04/2023 9:30 AM EDT Narrative [facility] - 04/08/2023 3:00 PM EDT FASTING:UNKNOWN FASTING: UNKNOWN Aurelio Barajas [facility] LAB BLOOD ORDERABLES Final Res ult [facility] [address], [place] [address] [facility] [address] [place] [address] * (ABNORMAL) Lipid Panel, Standard (04/04/2023 9:29 AM EDT) [facility] Cholesterol, Total 154 <200 mg/dL [facility] HDL Cholesterol 42 > OR = 40 mg/dL [facility] Triglycerides 163(H) <150 mg/dL [facility] LDL Cholesterol 86 mg/dL (calc) [facility] Comment: Reference range: <100 Desirable range <100 mg/dL for primary prevention; <70 mg/dL for patients with CHD or diabetic patients with > or = 2 CHD risk factors. LDL-C is now calculated using the Jan calculation, which is a validated novel method providing better accuracy than the Friedewald equation in the estimation of LDL-C. David SS et al. ELGIN. 2013;310(19): 1074-5741 (http://education.Tibersoft.Montage Talent/faq/ZEO743) Chol/HDLC Ratio 3.7 <5.0 (calc) [employer] Non-HDL Cholesterol 112 <130 mg/dL (calc) [facility] Comment: For patients with diabetes plus 1 major ASCVD risk factor, treating to a non-HDL-C goal of <100 mg/dL (LDL-C of <70 mg/dL) is considered a therapeutic option. Blood Venous blood specimen / Unknown 04/04/2023 9:29 AM EDT 04/04/2023 9:30 AM EDT Narrative [facility] - 04/08/2023 3:00 PM EDT FASTING:UNKNOWN FASTING: UNKNOWN Aurelio Barajas [facility] LAB BLOOD ORDERABLES Final Res ult [facility] [address], [place] [address] [facility] [address] [place] [address] from Last 3 Months or Most Recently Relevant to Health Maintenance Insurance [facility] C[place] AD[place] Care Teams Community [facility] Director Relationship Specialty Start Date End Date Gisselle Keyes MD [address] [place] [phone] PCP - General Internal Medicine 08/03/23
[2025-08-06 09:35] LABS: Hematocrit 36.2 % (42.0-52.0); Hemoglobin 12.2 g/dl (14.0-18.0); Imm Gran Abs Auto 0.05 X10*3/uL (0.00-0.03); Imm Gran Pct Auto 0.6 % (0.0-0.4); Lymphocytes Absolute Auto 1.8 X10*3/uL (1.2-4.9); Mean Corpuscular HGB Conc 33.7 g/dl (31.0-36.0); Mean Corpuscular Hemoglobin 32.2 pg (27.0-33.0); Mean Corpuscular Volume 95.5 fL (80.0-98.0); NRBC Abs Auto 0.000 X10*3/uL (0.0-0.012); NRBC Pct Auto 0.0 /100WBC (0.0-0.2); Platelet Count 271 X10*3/uL (160-400); Red Blood Count 3.79 X10*6/uL (4.60-5.80); White Blood Count 8.6 X10*3/uL (4.8-10.8)
[2025-08-06 09:46] LABS: Hemoglobin A1C 103.6970 umol/L
[2025-08-06 10:18] LABS: HBS Num1 1.23 mIU/mL (0-7.99); HBc Num1 0.06 S/CO (0.00-0.79); HBsAGNum1 0.35 S/CO (0.00-0.99); HIV Num 1 0.05 S/CO (0.00-0.99); Hepatitis B Surface Antigen Negative (Negative); ~HepC Num1 0.07 S/CO (0.00-0.79); ~Hepatitis B Surface Antibody NONREACTIVE (Nonreactive); ~Hepatitis C Antibody Nonreactive (Nonreactive)
[2025-08-06 10:26] LABS: Alanine Aminotransferase 25 U/L (0-40); Albumin Level 4.7 g/dL (3.5-5.0); Alkaline Phosphatase 94 U/L (39-117); Anion Gap 13 (12-20); Aspartate Amino Transferase 35 U/L (5-37); Blood Urea Nitrogen 41 mg/dL (9-16); Calcium 9.8 mg/dL (8.4-10.2); Carbon Dioxide 23 mmol/L (22-29); Chloride 106 mmol/L (96-108); Cholesterol 134 mg/dL (<200); Estimated Glomerular Filt Rate 49; HDL Cholesterol 33 mg/dL (>40); Potassium 4.6 mmol/L (3.3-5.1); Sodium 137 mmol/L (135-145); Total Protein 8.0 g/dL (6.5-8.0); Triglycerides 133 mg/dL (<150)
--- NOTE | 2025-08-06 10:35 | CA_ITS ---
Transthoracic Echocardiogram Patient (Last, First, Middle): Xavi Foy A Gender: M Date of : 1970 Age: 54 Procedure Date: 08/06/2025 Procedure Type: Transthoracic Echocardiogram Location: OP Height: 185.42 cm Weight: 167.38 kg BSA: 2.79 m2 Heart Rate: bpm BP: 102 / 70 mmHg Industrial Rehabilitation Consultant: TO Referring MD: Gisselle Valdez MD Symptoms: R94.31 ABNORMAL EKG, LEFT AXIS DEVIATION Study Quality: Fair/Contrast Conclusions: - 1. Low normal LV ejection fraction 50-55% with mild LVH with grade 1 diastolic dysfunction 2. Normal cardiac valvular Dopplers 3. Upper limits of normal ascending aortic size 4. No gross pericardial effusion Findings Procedure Information Contrast agent, definity, is being given per protocol without apparent complications. Left Ventricle Normal left ventricular cavity size. There is mildly increased left ventricular wall thickness. The left ventricular systolic function is low normal. The visually estimated ejection fraction is between 50-55%. Spectral Doppler is indicative of an impaired relaxation filling pattern. E/E prime ratio is <8, consistent with normal filling pressures. Evidence suggests grade I (mild) diastolic dysfunction. Right Ventricle There is normal right ventricular systolic function. RV appears to be mildly dilated on some views, could be off axis Atria Both atria are normal in size. Interatrial shunt cannot be excluded. Aortic Valve The aortic valve structure and function is likely normal. There is no aortic valve stenosis. There is no aortic valve regurgitation. Mitral Valve Normal mitral valve structure and function. There is trace mitral valve regurgitation. There is no mitral valve stenosis. Pulmonic Valve The pulmonic valve is likely normal. Tricuspid Valve Likely normal tricuspid valve structure and function. Tricuspid regurgitation envelope is inadequate for calculation of right ventricular systolic pressure. Normal right atrial pressure. Great Vessels The pulmonary artery was not well visualized. There is no dilatation of the ascending aorta measuring 3.60 cm. Venous The inferior vena cava is normal in size and collapses greater than 50% with inspiration. Pericardium/Pleural There is no evidence of pericardial effusion. Prior Study Comparison No prior study available for comparison. Measurements 2D Linear Measurements IVSd: 1.29 0.6-0.9/0.6-1.0 cm LVIDd: 5.25 3.9-5.3/4.2-5.9 cm LVIDd Index: 1.88 2.4-3.2/2.2-3.1 cm/m2 LVIDs: 3.89 2.0-3.6 cm LVPWd: 1.16 0.7-1.1 cm LV Mass: 324.30 67-162/88-224 g LV Mass Index: 116.24 43-95/49-115 g/m2 LVOT Diam: 2.50 3.0+(-)1.3 cm Mitral Valve MV Pk E: 0.49 MV PK A: 0.38 MV Decel Time: 225.00 E/A: 1.30 E'Lateral: 8.27 E'Medial: 6.74 E/E' Med: 7.20 E/E' Lat: 5.90 PHT: 66.00 MVA PHT: 3.33 Decel Angelina: 2.17 Aortic Valve AoV Pk Alzarus: 1.43 AoV Mn Lazarus: 0.85 AoV VTI: 0.22 AoV Pk Grad: 8.00 Aov Mn Grad: 4.00 KARRIE Cont.VTI: 3.61 LVOT LVOT Pk Lazarus: 0.89 LVOT Mn Lazarus: 0.55 LVOT VTI: 0.16 LVOT Pk Grad: 3.00 LVOT Mn Grad: 2.00 LVOT Diam: 2.50 LVOT Area: 4.91 Diastolic Function MV Pk E: 0.49 MV Pk A: 0.38 E/A: 1.30 E'Medial: 6.74 E/E' Med: 7.20 E' Laterial: 8.27 E/E' Lat: 5.90 Right Ventricle TAPSE (mm): 23.10 TVS' Lazarus: 12.30 Tricuspid Valve RA Press: 8.00 Great Vessels Aorta Sinus of Valsalva: 3.79 2.0-3.5 cm Ao Asc: 3.60 2.1-3.4 cm Updated in Other Vendor System with Status of Final Tanvir Vigil MD electronically signed on 08/07/2025 2:26:57 PM with status of Final
[2025-08-06 10:36] LABS: Folate 6.7 ng/mL (> or = 4.0); Prostate Specific Antigen 0.61 ng/mL (<0.05-4.0); Vitamin B12 830 pg/mL (200-900)
[2025-08-06 10:49] LABS: Syphilis Screen Reactive (Nonreactive)
[2025-08-06 12:23] LABS: Microalbum/Creatinine Ratio Ur 7.4 ug/mg cr (<30)
[2025-08-06 12:24] LABS: CT PCR Urine NOT DETECTED (Not Detect.); NG PCR Urine NOT DETECTED (Not Detect.)
[2025-08-06 16:24] LABS: Iron 118 mcg/dL (45-160); Percent Iron Saturation 44 % (15-50); Total Iron Binding Capacity 266 mcg/dL (228-428); Unsaturated Iron Binding 148 ug/dL; Uric Acid 11.4 mg/dL (3.4-7.0)
[2025-08-06 16:37] LABS: Ferritin 500 ng/mL (20-250)
[2025-08-11 12:04] LABS: T.Pallidum Particle Agg Test Reactive (Nonreactive)
== END ==
LOC: HO.CARD 08:44
PROVIDERS: PCP Student in an Organized Health Care Education/Training Program; Visit Provider Student in an Organized Health Care Education/Training Program
DX: Z00.00 Encounter for general adult medical examination without abnormal findings (principal); G47.33 Obstructive sleep apnea (adult) (pediatric); J45.909 Unspecified asthma, uncomplicated; E66.01 Morbid (severe) obesity due to excess calories; Z79.899 Other long term (current) drug therapy
CPT/HCPCS: 36415; 80053; 80061; 82043; 82306; 82570; 82607; 82728; 82746; 83036; 83540; 84153; 84443; 84550; 85025; 85652; 86140; 86592; 86704; 86706; 86780; 86803; 87340; 87389; 87491; 87591; 93306; 99212; Q9957

== ENCOUNTER 2025-08-06 09:21 | Outpatient (AMB) | payer MEDICAID, SELFPAY ==
--- NOTE | 2025-08-06 09:27 | A.OFFVIS_ITS ---
Intake Visit Reasons: tamara Allergies No Known Allergies (No Known Allergies*) Allergy (Verified 04/23/25 09:40) [facility] Medical History Asthma Nocturnal hypoxemia due to obesity TAMARA (obstructive sleep apnea) Dyspnea on exertion Somnolence, daytime Morbid obesity HTN (hypertension) Depression Surgical History History of hernia repair Family History Mother Skin cancer Social History Household Members: None Alcohol intake: never Patient Tobacco Use Status: Never used Tobacco Coding
--- NOTE | 2025-08-06 09:28 | A.OFFVIS_ITS ---
Vital Signs 08/06/25 09:47 Height 6 ft 1 in Weight 369 lb 4.388 oz BMI 48.7 BP 102/70 Blood Pressure Location Lt brachial Position Sitting Pulse 80 Pulse Source Pulse Oximeter Pulse Oximetry (%) 95 Oxygen Delivery Method Room Air Intake Visit Reasons: tamara Intake Note: pt is here for tamara follow up and states he feels good, sleeps well, and receiving supplies Mathematics Teacher Required: Yes Mathematics Teacher Services: Mathematics Teacher Present Mathematics Teacher Name: [id number] Theatrical Rigger: Theatrical Rigger offered & declined Allergies No Known Allergies (No Known Allergies*) Allergy (Verified 08/06/25 10:00) Medication List - Last Reconciled 08/06/25 by Paul Leach MD albuterol sulfate 90 mcg/actuation (ProAir HFA) 2 puffs inhalation Q4-6H PRN amlodipine 5 mg PO DAILY budesonide-formoterol 160-4.5 mcg/actuation (Symbicort) 2 puffs inhalation BID citalopram 20 mg PO DAILY cyclobenzaprine 10 mg PO TID PRN gabapentin 300 mg PO Q8H hydrochlorothiazide 50 mg PO QAM lisinopril 20 mg PO DAILY quetiapine 200 mg PO DAILY tamsulosin 0.4 mg PO DAILY Do you need a note to return to daycare/school/sports/work: No HPI HPI tamara: Details: This 54 years old gentleman with morbid obesity and obstructive sleep apnea as well as chronic obstructive pulmonary disease, comes for follow-up after 4 months. He has been doing very well, using BiPAP every night, and benefiting. He is very upbeat today and say is he is able to lose weight slowly. So far has lost about 22 lb of weight since last visit. Sleep is good And breathing has been very good and stable. [facility] Medical History Asthma Nocturnal hypoxemia due to obesity TAMARA (obstructive sleep apnea) Dyspnea on exertion Somnolence, daytime Morbid obesity HTN (hypertension) Depression Surgical History History of hernia repair Family History Mother Skin cancer Social History Household Members: None Alcohol intake: never Patient Tobacco Use Status: Never used Tobacco Review of Systems Const All systems reviewed & are unremarkable except as noted in HPI and below Eyes Reports no additional complaints ENT Reports no additional complaints Card Denies chest pain, Denies irregular heart rhythm and Denies leg edema Resp Reports as per HPI GI Reports no additional complaints Reports no additional complaints Musc Reports back pain and Reports myalgias Skin/Breast Reports system reviewed and no additional complaints, except as documented Neuro Reports no additional complaints Psych Reports depression Endo Reports no additional complaints Aller/Immun Reports no additional complaints Physical Exam Vital Signs: Last Vital Signs Pulse 80 08/06/25 09:47 BP 102/70 08/06/25 09:47 Pulse Ox 95 08/06/25 09:47 Oxygen Delivery Method Room Air 08/06/25 09:47 BMI result Body Mass Index 48.7 He is grossly overweight with rounded face and short and obese neck Const General: comfortable, no acute distress, alert and awake Orientation/consciousness: patient oriented x3 HEENT Head: Yes normal to inspection General nose exam: No nasal polyps present and No nasal discharge present Face and sinus: Yes sinuses nontender Mouth: oropharynx abnormals (Very narrow oropharynx, Mallampati class 4) Throat: Yes posterior oropharynx normal Eyes General: appearance normal, both eyes and all related structures Neck Neck: Yes normal visual inspection, Yes no lymphadenopathy, Yes trachea midline, Yes no JVD and Yes other (Neck circumference 22 in) Thyroid: Thyroid normal Chest Chest palpation & inspection: normal inspection of the chest, normal palpation of entire chest wall and no tenderness Resp Other: Percussion note is not perceptible because of the thick chest wall. Breath sounds are diminished throughout the chest especially over the basilar areas. No wheezes or crepitations are heard Cardio Palpation: PMI not normal (Not palpable) Rate: regular rate Rhythm: regular rhythm Heart sounds: no gallops and no murmurs Peripheral pulses: Peripheral pulses 2+ throughout GI Palpation (GI): Soft to palpation, nontender, No hepatosplenomegaly present, no masses and Other GI palpation findings present Auscultation: normal bowel sounds Back/Spine/Pelvis Thoracic/Lumbar Spine: thoracic and lumbar spine normal to inspection and thoraco-lumbar ROM limited Skin General skin exam: no rashes or lesions noted Neuro General: patient oriented x3 and no focal motor deficits Cranial nerves: Yes CN's II-XII intact bilaterally Extrem General: Yes normal to inspection, Yes no clubbing, cyanosis or edema and Yes no calf tenderness Psych Appearance: grossly normal and well kempt Speech and movement: Normal speech and movement present Results Reviewed Results Reviewed: Compliance for the last 30 nights is reviewed and it is excellent, 30/30 nights. Average usage per night 10 hours 5 minutes . Bilevel pressure setting 18/14 cm. There is a moderate amount of air leak and residual AHI 4.7 Assessment & Plan Assessment & Plan (1) Morbid obesity: Comment: Morbid obesity is very obvious in his case, he has gradually put on weight in the last five to six years. He is now trying to watch his diet, and in the last 4 months has lost about 22 lb of weight. He is very happy about this . Code(s): E66.01 - Morbid (severe) obesity due to excess calories Category: Medical Plan: Commended for losing weight. Advised to continue to follow the dietary regimen and also walk daily . (2) TAMARA (obstructive sleep apnea): Comment: He is using bilevel CPAP 18/14 cm, with full face mask. Compliance is excellent. Residual AHI 4.7 but not significant. Code(s): G47.33 - Obstructive sleep apnea (adult) (pediatric) Category: Medical Plan: Commended for good compliance and advised to continue using it regularly every night. (3) Asthma: Comment: HAS MILD INTERMITTENT BRONCHIAL ASTHMA BUT HAS BEEN CONTROLLED WITH THE USE OF BUDESONIDE-FORMOTEROL. Code(s): J45.909 - Unspecified asthma, uncomplicated Category: Medical Plan: Continue Advair 160-4.52 puffs b.i.d. And use albuterol HFA 2 puffs Q 4-6 hours p.r.n.. Coding Level of Care Code Est Pt Level 3 (39727) Diagnoses Morbid obesity E66.01 TAMARA (obstructive sleep apnea) G47.33 Asthma J45.909
[2025-08-06 09:47] VITALS: BP 102/70; PULSE 80; O2SAT 95; BMI 48.7
== END 2025-08-06 10:01 | disposition home or self-care (01) ==
LOC: HO.HPS 09:22
PROVIDERS: PCP Student in an Organized Health Care Education/Training Program; Referring Provider Student in an Organized Health Care Education/Training Program; Visit Provider Internal Medicine
DX: E66.01 Morbid (severe) obesity due to excess calories (principal); G47.33 Obstructive sleep apnea (adult) (pediatric); J45.909 Unspecified asthma, uncomplicated
CPT/HCPCS: 99213

== ENCOUNTER → 2025-08-06 10:35 | Outpatient (BNV) | payer MEDICAID, SELFPAY | PROVIDERS: PCP Student in an Organized Health Care Education/Training Program; Visit Provider Internal Medicine Cardiovascular Disease | DX: R94.31 Abnormal electrocardiogram [ECG] [EKG] (principal); I51.89 Other ill-defined heart diseases | CPT/HCPCS: 93306 ==

== ENCOUNTER 2025-08-28 10:21 | Emergency (ER) | payer MEDICAID, SELFPAY ==
--- OUTSIDE RECORDS SUMMARY | 2025-08-26 11:00 | XMS_ITS | Encounter Summary ---
Author Organization [email or web address] Address [address] [place] [address] Care Team Providers Care Practice Business Asst Name Role Phone Gisselle Keyes MD Primary Care Pro vider Reason for Visit * Reason Comments Blood Pressure Check Encounter Details Date Type Department Care Team (Latest Contact Info) Description 08/26/2025 11:00 AM EDT Clinical Support [facility] [address] [place] [address] Kenya Marks RN Hypertension, unspecified type Social History Tobacco Use Types Packs/Day Years [...] Date Recorded Patient Health Questionnaire-9 Score 0 08/09/2025 Patient Health Questionnaire-9 Score 0 08/09/2025 Last PHQ-9: Questionnaire Data Not on file 1 Housing Stability Answer Date Recorded What is [...] Date Recorded Patient Health Questionnaire-2 Score 0 08/09/2025 Internet Access Answer Date Recorded Internet Access [...] Sign Reading Time Taken Comments Blood Pressure 130/83 08/26/2025 11:03 AM EDT Pulse 92 08/26/2025 11:03 AM EDT Temperature - - Respiratory Rate 20 08/26/2025 11:03 AM EDT Oxygen Saturation 93% 08/26/2025 11:03 AM EDT Inhaled Oxygen Concentration - - Weight - - Height - - Body Mass Index - - documented in this encounter Progress Notes * Kenya Marks RN - 08/26/2025 11:00 AM EDT SUBJECTIVE: Xavi Justice is a 54 y.o. 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 If normal will continue current regimen if mixed elevated will resume Amlodipine. At last appointment the ptblood pressure numbers were well controlled. Today, Xavi Justice does not complain of any blurred vision, shortness of breath, chest pain, dizziness, or headaches. Pt only reported complaint is having pulsations towards the back ofthe head the morning after using CPAP machine. Pt does not know if this is related to the CPAP machine or blood pressure being elevated. Pt did mention that when this happens the thought of going to the ED does happen. Pt does not endorse any severe pain. Current Medications[1] Patient Active Problem List Diagnosis Date Noted Gout 08/10/2025 JESUS (acute kidney injury) 08/10/2025 Other specified nutritional anemias 08/10/2025 History of syphilis 08/10/2025 Onychomycosis 08/10/2025 Obstructive sleep apnea hypopnea, severe 12/17/2024 Hepatic steatosis 12/17/2024 Bone loss of mandible 08/20/2024 Foreign body of right ear 07/05/2024 Advanced periodontitis 03/30/2024 Gingival bleeding 03/30/2024 Teeth missing 03/30/2024 Dental calculus 03/30/2024 Mild asthma 03/30/2023 Hypertriglyceridemia 03/29/2023 Routine adult health maintenance 01/21/2023 Severe major depression with psychotic features (CMS/HCC) (HCC) 03/15/2013 Impaired fasting blood sugar 12/01/[address] 08/11/2012 Anxiety 08/11/2012 Diverticular disease 08/11/2012 Hypertension 08/11/2012 Obesity 08/11/2012 Patient has no known allergies. Xavi Justice does confirm adherence to medications for hypertension listed above. Confirmed medications taken today [x] Recent emergency room or hospitalizations: No Notes scanned into chart: No Tobacco Use History[2] Social History Substance and Sexual Activity Alcohol Use Not Currently Comment: social Social History Substance and Sexual Activity Drug Use Yes Types: Marijuana, Heroin Comment: stopped marijuana 15 y ago, hx of snort heroin stopped 15 y BP Readings from Last 4 Encounters: 08/26/25 130/83 08/09/25 122/80 04/24/25 110/72 12/12/24 130/80 Pulse Readings from Last 4 Encounters: 08/26/25 92 08/09/25 98 04/24/25 82 12/12/24 78 OBJECTIVE: Vitals: 08/26/25 1103 BP: 130/83 BP Location: Left arm Patient Position: Sitting BP Cuff Size: Large adult Pulse: 92 Resp: 20 SpO2: 93% ASSESSMENT: Pt did achieve goal blood pressure of <140/90 PLAN: Pt advised that today's blood pressure visit will be sent to PCP for review and advisement. If any medication changes are made or follow up needed the pt will be contacted. Xavi Justice advised to continue taking medications as directed and reinforcement of lifestyle modifications including low sodium diet and exercise were reviewed. Xavi Justice agreeable to plan discussed at today's visit. No future appointments. Kenya Marks RN [1] Current Outpatient Medications Medication Sig Dispense Refill albuterol (Ventolin HFA) 108 (90 Base) MCG/ACT inhaler Inhale 1 puff every 6 (six) hours if needed for wheezing. 18 g 1 allopurinol (Zyloprim) 100 MG tablet Take 0.5 tablets (50 mg) by mouth Once per day. 45 tablet 0 Blood Pressure kit 1 kit 2 times daily. 1 kit 0 lisinopril-hydroCHLOROthiazide 20-25 MG tablet Take 1 tablet by mouth Once per day. 90 tablet 0 QUEtiapine (SEROquel) 200 MG tablet TAKE 1 TABLET BY MOUTH EVERY DAY 90 tablet 1 Symbicort 160-4.5 MCG/ACT inhaler INHALE 2 PUFFS TWICE DAILY IN THE MORNING AND AT BEDTIME. RINSE MOUTH AFTER USING. DO NOT SWALLOW. 10.2 g 1 tamsulosin (Flomax) 0.4 MG 24 hr capsule TAKE 1 CAPSULE BY MOUTH DAILY 30 MINUTES AFTER same MEAL EVERY DAY 90 capsule 1 No current facility-administered medications for this visit. [2] Social History Tobacco Use Smoking Status Former Types: Cigarettes Smokeless Tobacco Never Tobacco Comments Started smoking at 14 y of age and stopped 38 y of age,smoked for 24 y -stopped 15 y ago , used to smoke 3 a day . PQT a day 3.6-no need for screening documented in this encounter Plan of Treatment Not on file documented as of this encounter Visit Diagnoses Diagnosis Hypertension, unspecified type documented in this encounter Additional Health Concerns Assessment Noted Time PHQ-9 Depression Total Score: 0 08/09/20 25 10:30 AM EDT documented as of this encounter Care Teams Practice Business Asst Relationship Specialty Start Date End Date Gisselle Keyes MD [address] [place] [id number] PCP - General Internal Medicine 08/03/23 documented as of this encounter
[2025-08-28 10:27] VITALS: BP 100/57; PULSE 95; RESP 18; TEMP 36.1; O2SAT 96; BMI 48.9
--- NOTE | 2025-08-28 10:27 | ED.GENADULT ---
HPI - General Adult General Chief complaint: Neck Pain/Injury Stated complaint: neck pain 2-3 weeks Time Seen by Provider: 08/28/25 10:43 Source: patient Mode of arrival: ambulatory Limitations: no limitations History of Present Illness ED Provider: Dr. Hurtado HPI narrative: 54-year-old male presented hospital today for right-sided neck pain. It has been going on for 3 weeks now. Worsened when he turns his head to the right. Stated that he woke up like this. Has not been improving. Been trying to take some Advil without any alleviation. He has also noted increased swelling in his legs as well. No shortness of breath. No traumatic injury to neck Related Data Home Medications ?Medication ?Instructions ?Recorded ?Confirmed budesonide-formoterol HFA 160 2 puff inhalation BID 07/09/24 08/06/25 mcg-4.5 mcg/actuation aerosol inhaler (Symbicort) citalopram 20 mg tablet 20 mg PO DAILY 07/09/24 08/06/25 gabapentin 300 mg capsule 300 mg PO Q8H 07/09/24 08/06/25 lisinopril 20 mg tablet 20 mg PO DAILY 07/09/24 08/06/25 quetiapine 200 mg tablet 200 mg PO DAILY 07/09/24 08/06/25 tamsulosin 0.4 mg capsule 0.4 mg PO DAILY 07/09/24 08/06/25 Previous Rx's ?Medication ?Instructions ?Recorded cyclobenzaprine 10 mg tablet 10 mg PO TID PRN muscle spasm #14 03/21/23 tabs albuterol sulfate 90 mcg/actuation 2 puff inhalation Q4-6H PRN 04/06/24 aerosol inhaler (ProAir HFA) shortness of breath or wheezing #8.5 grams amlodipine 5 mg tablet 5 mg PO DAILY #90 tabs 04/06/24 hydrochlorothiazide 50 mg tablet 50 mg PO QAM #90 tabs 04/06/24 acetaminophen 500 mg tablet 1,000 mg (2 x 500 mg) PO Q8H 10 08/28/25 (Tylenol Extra Strength) days #60 tabs diazepam 5 mg tablet (Valium) 5 mg PO BID PRN muscle spasm 5 08/28/25 days #10 tabs furosemide 20 mg tablet (Lasix) 20 mg PO DAILY 5 days #5 tabs 08/28/25 lidocaine 5 % topical patch 1 patch topical DAILY #15 ea 08/28/25 naproxen 250 mg tablet 250 mg PO BID 10 days #20 tabs 08/28/25 Allergies Allergy/AdvReac Type Severity Reaction Status Date / Time No Known Allergies (No Known Allergy Verified 08/28/25 10:31 Allergies*) Review of Systems Review of Systems: Pertinent review of systems as mentioned in [facility]. All other system otherwise negative. [facility] Past Medical History Attestation statement: The following information was validated with the patient. [facility] Narrative: Medical history as mentioned in HPI Medical History Asthma Nocturnal hypoxemia due to obesity ALFREDITO (obstructive sleep apnea) Dyspnea on exertion Somnolence, daytime Morbid obesity HTN (hypertension) Depression Surgical History History of hernia repair Family History Family History Mother Skin cancer Social History Social History Household Members: None Alcohol intake: never Patient Tobacco Use Status: Never used Tobacco Advance Directives: No Advance Directives Information Provided: Yes Physical Exam ED Exam Exam: General: Pleasant, no distress, interacting appropriately Head: Normacephalic, atraumatic ENT: Patient does have spasm on the right side of the neck, no midline C-spine tenderness Neurological: Awake and alert, no facial droop noted Skin: Warm and dry Psychiatric: Appropriate mood and thoughts Vital Signs: Vital Signs - 24 hr 08/28/25 10:27 Temperature 97 F Pulse Rate 95 Respiratory Rate 18 Blood Pressure 100/57 L Pulse Oximetry 96 Oxygen Delivery Method Room Air BMI result Body Mass Index 48.9 Course Course Course Narrative: Rapid medical screening exam was performed. Patient stable at time of evaluation. 54 yo male history of asthma presented to ED for 3 weeks of right sided neck pain. Took advil. However stop after feeling swollen. 05/09 pain and intermittent in nature. Pia Hurtado DO 08/28/25 1027 Medical Decision Making Medical Decision Making [facility] Narrative: 54-year-old male presented hospital today for right-sided neck pain. Patient woke up with right-sided neck pain. No bowel incontinence no urinary retention, no weakness in upper and lower extremities. Low suspicion for spinal cord injury. The patient will be prescribed Valium PO PRN, scheduled tylenol and naproxen PO and increase lasix 20mg PO. Encouraged to follow up with primary care doctor. american sign language interpreter was used for this encounter. Patient agrees and understands this plan all questions were addressed. Differential Diagnosis Differential Diagnoses: The differential diagnosis associated with the presentation includes Torticollis, cervical spine stenosis, cervical radiculopathy, trapezius spasm Prescription Management I considered prescription management with: Pain Medication Discharge Plan Discharge Clinical Impression: Muscular torticollis Patient Disposition: Home, Self-Care Instructions: Spasmodic Torticollis (ED) Prescriptions: New furosemide [Lasix] 20 mg tablet 20 mg PO DAILY 5 Days Qty: 5 0RF lidocaine 5 % adhesive patch,medicated 1 patch topical DAILY Qty: 15 0RF Rx Instructions: leave on most painful area for up to 12 hrs naproxen 250 mg tablet 250 mg PO BID 10 Days Qty: 20 0RF acetaminophen [Tylenol Extra Strength] 500 mg tablet 1,000 mg PO Q8H 10 Days Qty: 60 0RF diazepam [Valium] 5 mg tablet 5 mg PO BID PRN (Reason: muscle spasm) 5 Days Qty: 10 0RF No Action amlodipine 5 mg tablet 5 mg PO DAILY Qty: 90 0RF albuterol sulfate [ProAir HFA] 90 mcg/actuation HFA aerosol inhaler 2 puff inhalation Q4-6H PRN (Reason: shortness of breath or wheezing) Qty: 8.5 0RF hydrochlorothiazide 50 mg tablet 50 mg PO QAM Qty: 90 0RF cyclobenzaprine 10 mg tablet 10 mg PO TID PRN (Reason: muscle spasm) Qty: 14 0RF budesonide-formoterol [Symbicort] 160-4.5 mcg/actuation HFA aerosol inhaler 2 puff inhalation BID lisinopril 20 mg tablet 20 mg PO DAILY gabapentin 300 mg capsule 300 mg PO Q8H tamsulosin 0.4 mg capsule 0.4 mg PO DAILY citalopram 20 mg tablet 20 mg PO DAILY quetiapine 200 mg tablet 200 mg PO DAILY Print Language: Other
[2025-08-28 10:54] VITALS: BP 100/57; PULSE 95; RESP 18; TEMP 36.1; O2SAT 96
--- OUTSIDE RECORDS SUMMARY | 2025-08-28 13:10 | XMS_ITS | Encounter Summary ---
Author Organization [employer] Address [address] [place] [address] Care Team Providers Care Director Patient Financial Services Name Role Phone Aurelio Barajas Primary Care Provider Unavail Larisa Chaidez Primary Care Provider [phone] Gisselle Keyes MD Primary Care Pro vider Encounter Details Date Type Department Care Team (Late st Contact Info) Description 05/27/2023 Abstract [facility] [address] [place] [address] Aurelio Barajas AGNP Social History Tobacco Use [...] as of this encounter Plan of Treatment Not on file documented as of this encounter Visit Diagnoses Not on filedocumented in this encounter Additional Health Concerns Assessment Noted Time PHQ-9 Depression Total Score: 1 03/30/20 3:34 PM EDT documented as of this encounter Care Teams Director Patient Financial Services Relationship Specialty Start Date End Date Aurelio Barajas AGNP PCP - General Family Medicine 01/13/23 07/20/23 Larisa Griffith FNP [address] [place] [address] PCP - General Family Medicine 07/21/23 08/02/23 Gisselle Keyes MD [address] [place] [address] PCP - General Internal Medicine 08/03/23 documented as of this encounter
--- OUTSIDE RECORDS SUMMARY | 2025-08-28 13:10 | XMS_ITS | Clinical Summary ---
Author Organization [employer] Address [address] [place] [address] Care Team Providers Care Restaurant Area Director Name Role Phone Gisselle Keyes MD Primary Care Pro vider Allergies No known active allergies Medications Blood Pressure kitIndications: Hypertension, unspecified type 1 kit 2 times daily. 1 kit 3 Active tamsulosin (Flomax) 0.4 MG 24 hr capsule TAKE 1 CAPSULE BY MOUTH DAILY 30 MINUTES AFTER same MEAL EVERY DAY 90 capsule 1 5 Active QUEtiapine (SEROquel) 200 MG tabletIndicatio ns:Severe major depression with psychotic features (CMS/HCC) (HCC) TAKE 1 TABLET BY MOUTH EVERY DAY 90 tablet 1 5 Active albuterol (Ventolin HFA) 108 (90 Base) MCG/ACT inhaler Inhale 1 puff every 6 (six) hours if needed for wheezing. 18 g 1 5 Active Symbicort 160-4.5 MCG/ACT inhaler INHALE 2 PUFFS TWICE DAILY IN THE MORNING AND AT BEDTIME. RINSE MOUTH AFTER USING. DO NOT SWALLOW. 10.2 g 1 5 Active lisinopril-hydr oCHLOROthiazide 20-25 MG tablet Take 1 tablet by mouth Once per day. 90 tablet 5 026 Active allopurinol (Zyloprim) 100 MG tablet Take 0.5 tablets (50 mg) by mouth Once per day. 45 tablet 5 026 Active amLODIPine (Norvasc) 5 MG tablet Take 1 tablet (5 mg) by mouth Once per day. 30 tablet 11 4 025 Discontin ued(Other ) acetaminophen (Tylenol) 500 MG tablet Take 1 tablet (500 mg) by mouth every 6 (six) hours if needed for mild pain for up to 20 doses. 20 tablet 4 025 Discontin ued(Other ) Bisacodyl EC 5 MG EC tablet TAKE 4 TABLETS BY MOUTH ONCE AT NOON THE DAY BEFORE YOUR COLONOSCOPY 4 025 Discontin ued(Other ) Active Problems Problem Noted Date Diagnosed Date Gout 08/10/2025 JESUS (acute kidney injury) 08/10/2025 Other specified nutritional anemias 08/10/2025 History of syphilis 08/10/2025 Onychomycosis 08/10/2025 Obstructive sleep apnea hypopnea, severe Overview (12/17/2024): AHI 53 on home PSG [...] factors. LDL-C is now calculated using the David-Deluna calculation, which is a validated novel method providing better accuracy than the Friedewald equation in the estimation of LDL-C. David SS et al. ELGIN. 2013;310(19): 0535-7048 (http://education.[employer]/faq/PLE979) Chol/HDLC Ratio <5.0 (calc) 3.7 4.0 Non-HDL [...] that we do not do colonoscopies on [facility] grounds. Referral to GI sent for colorectal cancer screening Vacc.: discuss at follow up Eye exam: Denies opthamology referral Dental home: last visit 2 weeks ago, [facility] dental. Assessment & Plan (01/21/2023 4:36 [...] breathing and sleep. Will initiate script for Sundaralexandriaclemenciarichard based on his severe ALFREDITO, asthma, HTN, liver disease. Resolved Problems Problem Noted Date Diagnosed Date Resolved Date Routine health maintenance 03/31/2023 0 03/31/2023 Closed fracture of multiple ribs with routine healing 01/21/2023 07/05/2024 Assessment & Plan (01/21/2023 4:54 PM EDT): Xavi has no complaints or symptoms regarding this diagnosis today. 01/09/23 [facility] notes Medical Decision Making MDM Narrative: 0836: [...] Encounters Date Type Department Care Team Description 08/26/2025 11:00 AM EDT Clinical Support [facility] [address] [place] [phone] Kenya Marks RN Hypertension, unspecified type 08/26/2025 Travel 08/12/2025 Telephone [facility] [address] [place] [phone] Gisselle Keyes MD Med Refill 08/12/2025 Results Follow-Up [facility] [address] [place] [phone] Gisselle Kyees MD Confirmatory Syphilis Profile 08/09/2025 10:15 AM EDT Office Visit [facility] [address] [place] [phone] Gisselle Keyes MD JESUS (acute kidney injury) (Primary Dx); Hypertension, unspecified type; Hypertriglyceridemia; Class 3 severe obesity due to excess calories with serious comorbidity and body mass index (BMI) of 50.0 to 59.9 in adult ([facility]); Routine adult health maintenance; Severe major depression with psychotic features (CMS/HCC) ([facility]); Obstructive sleep apnea hypopnea, severe; Acute idiopathic gout involving toe of right foot; Other specified nutritional anemias; History of syphilis; Onychomycosis 08/09/2025 Travel 08/08/2025 Telephone [facility] [address] [place] [phone] Gisselle Keyes MD chart prep 08/06/2025 Orders Only [address] [phone] Gisselle Keyes MD 08/06/2025 Results Follow-Up [address] [address] Gisselle Keyes MD Albumin, Random Urine W/Creatinine, CBC auto differential, Chlamydia/Trichomonas /Neisseria gonorrhoeae, PCR, Urine, Additional followed-up results: 18 08/06/[address] [phone] Gisselle Keyes MD Appointment 08/05/2025 Patient Outreach [facility] [address] [place] [address] Gisselle Keyes MD Pre-visit Planning (SDOH was already completed ) 07/22/2025 Orders Only [address] [address] Gisselle Keyes MD Routine health maintenance (Primary Dx) 07/22/[address] [address] Gisselle Keyes MD call back needed 07/16/2025 Refill [facility] [address] [place] [address] Gisselle Keyes MD 06/28/2025 Refill [facility] [address] [place] [phone] Gisselle Keyes MD from Last 3 Months Immunizations Immunization Administration [...] Pulse 92 08/26/2025 11:03 AM EDT Temperature 36.1 C (96.9 F) 08/09/2025 10:29 AM EDT Respiratory Rate 20 08/26/2025 11:03 AM EDT Oxygen Saturation 93% 08/26/2025 11:03 AM EDT Inhaled Oxygen Concentration - - Weight 170 kg (374 lb) 08/09/2025 10:29 AM EDT Height 185.4 cm (6' 1 ) 08/09/2025 10:29 AM EDT Body Mass Index 49.34 08/09/2025 10:29 AM EDT Plan of Treatment Health Maintenance Due Date Last Done Comments [...] 03/30/2024, 01/13/2023 Alcohol/Substance Use Screening 12/12/2025 12/12/2024 Disability Screening 04/24/2026 04/24/2025 SDOH Screening 04/24/2026 04/24/2025 Depression Screening 08/09/2026 08/09/2025, 08/09/2025 Tobacco Screening 08/09/2026 08/09/2025 Colonoscopy 07/17/2027 07/17/2024 Colorectal Cancer Screening 07/17/2027 Dental X-Ray: Full Mouth 08/21/2027 024, 03/30/2024, 03/15/2023 Lipid Panel 08/06/2030 08/06/2025, 04/04/2023, 01/28/2023 DTaP/Tdap/Td Vaccines (3 - T d or Tdap) 07/05/2034 07/05/2024, 05/24/2013 RSV Patients and Patients Aged 60 years or older (1 - 1-dose 75+ series) 2043 Pneumococcal Vaccine: 50+ Years Completed 07/05/2024 HIV Screening Completed 08/06/2025, 04/04/2023 Hepatitis C Screening Completed 08/06/2025 , 04/04/2023 HIB Vaccines Aged Out No longer eligi [...] Procedure Name Priority Date/Time Associated Diagnosis Comments CHLAMYDIA/TRICHOMONAS /NEISSERIA GONORRHOEAE, PCR, URINE Routine 08/06/2025 9:30 AM EDT Routine health maintenance ALBUMIN, RANDOM URINE W/CREATININE Routine 08/06/2025 9:30 AM EDT Routine health maintenance CONFIRMATORY SYPHILIS PROFILE Routine 08/06/2025 9:09 AM EDT SED RATE BY MODIFIED WESTERGREN Routine 08/06/2025 9:09 AM EDT Routine health maintenance C-REACTIVE PROTEIN Routine 08/06/2025 9: 09 AM EDT Routine health maintenance URIC ACID Routine 08/06/2025 9:09 AM EDT Routine health maintenance FERRITIN Routine 08/06/2025 9:09 AM EDT Routine health maintenance IRON AND TOTAL IRON BINDING CAPACITY Routine 08/06/2025 9:09 AM EDT Routine health maintenance PSA, TOTAL Routine 08/06/2025 9:09 AM EDT Routine health maintenance VITAMIN D,25-OH,TOTAL,IA Routine 08/06/2025 9:09 AM EDT Routine health maintenance VITAMIN B12/FOLATE, SERUM PANEL Routine 08/06/2025 9:09 AM EDT Routine health maintenance TSH W/REFLEX TO FT4 Routine 08/06/2025 9:09 AM EDT Routine health maintenance SYPHILIS SCREEN Routine 08/06/2025 9:09 AM EDT Routine health maintenance LIPID PANEL, STANDARD Routine 08/06/2025 9:09 AM EDT Routine health maintenance HIV 1/2 ANTIGEN/ANTIBODY, FOURTH GENERATION W/RFL Routine 08/06/2025 9:09 AM EDT Routine health maintenance HEPATITIS C AB W/REFL TO HCV RNA, QN, PCR Routine 08/06/2025 9:09 AM EDT Routine health maintenance HEPATITIS B SURFACE ANTIGEN, EIA Routine 08/06/2025 9:09 AM EDT Routine health maintenance HEPATITIS B SURFACE ANTIBODY, QUALITATIVE Routine 08/06/2025 9:09 AM EDT Routine health maintenance HEPATITIS B CORE AB TOTAL Routine 08/06/2025 9:09 AM EDT Routine health maintenance HEMOGLOBIN A1C Routine 08/06/2025 9:09 AM EDT Routine health maintenance COMPREHENSIVE METABOLIC PANEL Routine 08/06/2025 9:09 AM EDT Routine health maintenance CBC WITH AUTO DIFFERENTIAL Routine 08/06/2025 9:09 AM EDT Routine health maintenance BITEWING - SINGLE RADIOGRAPHIC IMAGE Routine 08/29/2024 [...] teeth Encounter for dental examination Periodontal disease from Last 3 Months or Most Recently Relevant to Health Maintenance Results * Chlamydia/Trichomonas/Neisseria gonorrhoeae, PCR, Urine (08/06/2025 9:30 AM EDT) Pathologist [facility] CT PCR, Urine NOT DETECTED Not Detect. [facility] Comment:A not detected test result does not exclude the possibilityof infection because test results can be affected byimproper specimen collection, concurrent antibiotic therapy,or the number of organisms in the specimen which may bebelow the sensitivity of the test. As with many diagnostictests, results from the Xpert CT/NG assay should beinterpreted in conjunction with other laboratory andclinical data available to the clinician.The Xpert CT/NG assay should not be used for the evaluationof suspected sexual abuse or for other medico-legalindications. Additional testing is recommended in anycircumstance when false positive or false negative resultscould lead to adverse medical, social or psychologicalconsequences. NG PCR, Urine NOT DETECTED Not Detect. [facility] Comment:A not detected test result does not exclude the possibilityof infection because test results can be affected byimproper specimen collection, concurrent antibiotic therapy,or the number of organisms in the specimen which may bebelow the sensitivity of the test. As with many diagnostictests, results from the Xpert CT/NG assay should beinterpreted in conjunction with other laboratory andclinical data available to the clinician.The Xpert CT/NG assay should not be used for the evaluationof suspected sexual abuse or for other medico-legalindications. Additional testing is recommended in anycircumstance when false positive or false negative resultscould lead to adverse medical, social or psychologicalconsequences. Urine (Urine, Random) 08/06/2025 9:30 AM EDT 08/06/2025 10:39 AM EDT us Gisselle Valdez MD LAB URINE ORDERAB LES Final Result Performing Organization Address [facility] Co de Phone Number [facility] [address] [place] [phone] * Albumin, Random Urine W/Creatinine (08/06/2025 9:30 AM EDT) Creatinine, Urine 213.85 mg/dL [facility] Microalbumin Urine 16.0 mg/L [facility] Microalbum Creatinine Ratio Ur 7.4 <30 ug/mg cr [facility] Comment:Albumin/Creatinine R atio Reference Ranges: Normal: < 30 ug/mg creatinine Microalbuminuria: 30 - 300 ug/mg creatinineClinical Albuminuria: > 300 ug/mg creatinine Urine (Urine, Random) 08/06/2025 9:30 AM EDT 08/06/2025 10:39 AM EDT us Gisselle Valdez MD LAB URINE ORDERAB LES Final Result Performing Organization Address [facility] Co de Phone Number [facility] [address] [place] [phone] * (ABNORMAL) Confirmatory Syphilis Profile (08/06/2025 9:09 AM EDT) Rapid Plasma Reagin, Quant Reactive 1:1(A) Nonreactive [facility] Treponema pallidum Antibody, Particle Agglutination Reactive(A) Nonreactive [facility] Comment:Testing performed at : [address] [phone] 08/06/2025 9:09 AM EDT 08/06/2025 9:09 AM EDT Gisselle Valdez MD LAB BLOOD ORDERAB LES Final Result Performing Organization Address City/[facility]/ZIP Co de Phone Number [facility] [address] [place] [phone] * (ABNORMAL) Syphilis Screen (08/06/2025 9:09 AM EDT) Syphilis Screen Reactive( A) Nonreactive [facility] Comment:Reactive specimens a re sent to the [facility] Labfor confirmatory tests. Blood 08/06/2025 9:09 AM EDT 08/06/2025 9:09 AM EDT Gisselle Valdez MD LAB BLOOD ORDERAB LES Final Result Performing Organization Address [facility]/ZIP Co de Phone Number [facility] [address] [place] [phone] * Vitamin D, 25-Hydroxy, Total, Immunoassay (08/06/2025 9:09 AM EDT) Vitamin D 25-OH Total 44.6 >30 ng/mL [facility] Comment: Health Based Reference Values*< 20 ng/mL Fmusejssa77-71 ng/mL Insufficient> 30 ng/mL Sufficient*Lauren JHAVERI. N Engl J Med. 2007;357:266-280There is no well-established upper level of normal vitamin Dlevels. Some laboratories use 50 ng/mL as an upper limit ofnormal. However, toxicity is patient-dependent and may occurat any level. Careful correlation with the patient'spresentation is necessary and, if there is concern forvitamin D toxicity, treatment should be consideredirrespective of the serum level.Care must be taken in interpreting Vitamin D results fromdifferent laboratories and methodologies. Published datademonstrated that results from patients undergoinghemodialysis may show a negative bias when tested withvarious automated 25-OH vitamin D assays when compared toLC-MS/MS.When testing samples from patients whose predominant form ofVitamin D is Vitamin D2, such as patients receiving VitaminD2 supplementation, results that are subtherapeutic shouldbe confirmed with another method such as LC-MS/MS. Blood Venous blood specimen / Unknown 08/06/2025 9:09 AM EDT 08/06/2025 9:09 AM EDT us Gisselle Valdez MD LAB BLOOD ORDERAB LES Final Result Performing Organization Address City/[facility]/ZIP Co de Phone Number [facility] [address] [place] [address] [phone] * Vitamin B12 (Cobalamin) and Folate Panel, Serum (08/06/2025 9:09 AM EDT) Vitamin B12 830 200 - 900 pg/mL [facility] Comment:NORMAL 200-900 PG/ML INDETERMINATE 160-199 PG/ML DEFICIENT < 160 PG/ML Folate 6.7 > or = 4.0 ng/mL [facility] Comment:Reference Values:> o r = 4.0 ng/mL< 4.0 ng/mL suggests folate deficiency Methotrexate, aminopterin and folinic acid(leucovorin) are chemotherapeutic agents whose molecularstructures are similar to folate; therefore, the Architectfolate assay cannot be used for patients using these drugs. Blood 08/06/2025 9:09 AM EDT 08/06/2025 9:09 AM EDT us Gisselle Valdez MD LAB BLOOD ORDERAB LES Final Result Performing Organization Address [facility] Co de Phone Number [facility] [address] [place] [address] [phone] * TSH with Reflex to Free T4 (08/06/2025 9:09 AM EDT) TSH reflex Free T4 1.10 0.32 - 4.0 uIU/mL [facility] Blood 08/06/2025 9:09 AM EDT 08/06/2025 9:09 AM EDT us Gisselle Valdez MD LAB BLOOD ORDERAB LES Final Result [facility] [address] [place] [phone] * (ABNORMAL) CBC auto differential (08/06/2025 9:09 AM EDT) White Blood Count 8.6 4.8 - 10.8 X10*3/uL [facility] Red Blood Count 3.79(L) 4.60 - 5.80 X10*6/uL [facility] Hemoglobin 12.2(L) 14.0 - 18.0 g/dl [facility] Hematocrit 36.2(L) 42.0 - 52.0 % [facility] Mean Corpuscular Volume 95.5 80.0 - 98.0 fL [facility] Mean Corpuscular Hemoglobin 32.2 27.0 - 33.0 pg [facility] Mean Corpuscular HGB Conc 33.7 31.0 - 36.0 g/dl [facility] Red Cell Distribution Width 11.9 11.0 - 16.0 % [facility] Platelet Count 271 160 - 400 X10*3/uL [facility] Mean Platelet Volume 10.3 9.4 - 12.4 fL [facility] Neutrophils Percent Auto 68.1 45 - 73 % [facility] Imm Gran Pct Auto 0.6(H) 0.0 - 0.4 % [facility] Lymphocytes Percent Auto 20.5 20 - 40 % [facility] Monocytes Percent Auto 8.2 2 - 11 % [facility] Eosinophils Percent Auto 2.1 0 - 4 % [facility] Basophils Percent Auto 0.5 0 - 2 % [facility] NRBC Pct Auto 0.0 0.0 - 0.2 /100WBC [facility] Neutrophils Absolute Auto 5.8 2.0 - 8.3 x10*3/uL [facility] Imm Gran Abs Auto 0.05(H) 0.00 - 0.03 X10*3/uL [facility] Lymphocytes Absolute Auto 1.8 1.2 - 4.9 X10*3/uL [facility] Monocytes Absolute Auto 0.7 0.1 - 1.2 X10*3/uL [facility] Eosinophils Absolute Auto 0.2 0.0 - 0.4 X10*3/uL [facility] Basophils Absolute Auto 0.0 0.0 - 0.2 X10*3/uL [facility] NRBC Abs Auto 0.000 0.0 - 0.012 X10*3/uL [facility] Blood Venous blood specimen / Unknown 08/06/2025 9:09 AM EDT 08/06/2025 9:09 AM EDT Gisselle Valdez MD LAB BLOOD ORDERAB LES Final Result Performing Organization Address [facility] Co de Phone Number [facility] [address] [place] [address] [phone] * Hepatitis C Antibody with Reflex to HCV, RNA, Quantitative, Real-Time PCR (08/06/2025 9:09 AM EDT) [facility] Signature Hepatitis C Antibody Nonreactive Nonreactive [facility] Comment:Antibodies to HCV no t detected; does not exclude early acuteHCV infection. Blood Venous blood specimen / Unknown 08/06/2025 9:09 AM EDT 08/06/2025 9:09 AM EDT Gisselle Valdez MD LAB BLOOD ORDERAB LES Final Result Performing Organization Address [facility] Co de Phone Number [facility] [address] [place] [phone] * Iron And Total Iron Binding Capacity (08/06/2025 9:09 AM EDT) Pathologist [facility] Iron 118 45 - 160 mcg/dL [facility] Total Iron Binding Capacity 266 228 - 428 mcg/dL [facility] Percent Iron Saturation 44 15 - 50 % [facility] Unsaturated Iron Binding 148 ug/dL [facility] Blood Venous blood specimen / Unknown 08/06/2025 9:09 AM EDT 08/06/2025 9:09 AM EDT Gisselle Valdez MD LAB BLOOD ORDERAB LES Final Result Performing Organization Address City/[facility]/ZIP Co de Phone Number [facility] [address] [place] [phone] * Hepatitis B surface antigen, EIA (08/06/2025 9:09 AM EDT) Pathologist [facility] Hepatitis B Surface Ag Negative Negative [facility] Blood Venous blood specimen / Unknown 08/06/2025 9:09 AM EDT 08/06/2025 9:09 AM EDT Gisselle Valdez MD LAB BLOOD ORDERAB LES Final Result Performing Organization Address City/[facility]/ZIP Co de Phone Number [facility] [address] [place] [phone] * Hepatitis B Core Antibody, Total (08/06/2025 9:09 AM EDT) Pathologist [facility] Hepatitis B Core Antibody Nonreactive Nonreactive [facility] Blood Venous blood specimen / Unknown 08/06/2025 9:09 AM EDT 08/06/2025 9:09 AM EDT Gisselle Valdez MD LAB BLOOD ORDERAB LES Final Result Performing Organization Address City/[facility]/ZIP Co de Phone Number [facility] [address] [place] [address] [phone] * HIV-1/2 Antigen and Antibodies, Fourth Generation, with Reflexes (08/06/2025 9:09 AM EDT) HIV AB/AG Nonreactive Nonreactive [facility] Comment:HIV-1 p24 Ag and/or HIV-1/HIV-2 Ab not detected.A test result that is nonreactive does not exclude thepossibility of exposure to or infection with HIV-1 and/orHIV-2. Nonreactive results in this assay for individualswith prior exposure to HIV-1 and/or HIV-2 may be due toantigen and antibody levels that are below the limit ofdetection of this assay.The Caringonicastaclip HIV Ag/Ab Combo assay result andsupplemental assay results should be interpreted inconjunction with the patient's clinical presentation,history and other laboratory results. If the results areinconsistent with clinical evidence, additional testing issuggested to confirm the result. Blood Venous blood specimen / Unknown 08/06/2025 9:09 AM EDT 08/06/2025 9:09 AM EDT us Gisselle Valdez MD LAB BLOOD ORDERAB LES Final Result [facility] [address] [place] [phone] * Hepatitis B Surface Antibody, Qualitative (08/06/2025 9:09 AM EDT) Pathologist [facility] ~Hepatitis B Surface Antibody NONREACTIVE Nonreactive [facility] Comment:Nonreactive: < 8.00 mIU/mL Blood Venous blood specimen / Unknown 08/06/2025 9:09 AM EDT 08/06/2025 9:09 AM EDT us Gisselle Valdez MD LAB BLOOD ORDERAB LES Final Result Performing Organization Address City/[facility]/ZIP Co de Phone Number [facility] [address] [place] [phone] * (ABNORMAL) Sed Rate by Modified Westergren (08/06/2025 9:09 AM EDT) Erythrocyte Sedimentation Rate 22(H) 0 - 15 MM/HR [facility] Comment:Patients with polycy themia and many hemoglobin abnormalitiesmay have depressed sed rates whereas patients with anemiamay have elevated sed rates. Blood Venous blood specimen / Unknown 08/06/2025 9:09 AM EDT 08/06/2025 3:51 PM EDT us Gisselle Valdez MD LAB BLOOD ORDERAB LES Final Result Performing Organization Address [facility]/ZIP Co de Phone Number [facility] [address] [place] [address] [phone] * (ABNORMAL) C-reactive Protein (08/06/2025 9:09 AM EDT) C Reactive Protein 0.63(H) < or = 0.50 mg/dL [facility] Blood Venous blood specimen / Unknown 08/06/2025 9:09 AM EDT 08/06/2025 9:09 AM EDT us Gisselle Valdez MD LAB BLOOD ORDERAB LES Final Result Performing Organization Address [facility] Co de Phone Number [facility] [address] [place] [address] [phone] * (ABNORMAL) Uric acid (08/06/2025 9:09 AM EDT) Uric Acid 11.4(H) 3.4 - 7.0 mg/dL [facility] Blood Venous blood specimen / Unknown 08/06/2025 9:09 AM EDT 08/06/2025 9:09 AM EDT us Gisselle Valdez MD LAB BLOOD ORDERAB LES Final Result Performing Organization Address [facility] Co de Phone Number [facility] [address] [place] [address] [phone] * PSA,Total (08/06/2025 9:09 AM EDT) Prostate Specific Antigen 0.61 <0.05 - 4.0 ng/mL [facility] Comment:PSA methodology: Coty Dyson i ChemiluminescentMicroparticle Immunoassay (CMIA) Blood Venous blood specimen / Unknown 08/06/2025 9:09 AM EDT 08/06/2025 9:09 AM EDT Gisselle Valdez MD LAB BLOOD ORDERAB LES Final Result Performing Organization Address [facility]/ZIP Co de Phone Number [facility] [address] [place] [address] [phone] * Hemoglobin A1c (08/06/2025 9:09 AM EDT) Hemoglobin A1c 5.1 <6.0 % [facility] Comment:Hemoglobin A1C Refer ence Range Adults: 4.8 - 6.0 % Non diabetic: < 6.0 % Goal: < 7.0 %Additional Action Suggested: > 8.0 %Note: Hemoglobin A1c results are invalid for patients with abnormal amounts of HbF. Blood transfusions may impact the HbA1c concentration in the patient sample. Estimated Average Glucose 100 mg/dL [facility] Comment:eAG = Estimated ave rage glucose which is %A1C expressed asaverage glucose, using the formula of the P6T-[id number] Glucose study (ADAG), Diabetes Care, Vol.31,#8,May. 2007 Blood Venous blood specimen / Unknown 08/06/2025 9:09 AM EDT 08/06/2025 9:09 AM EDT us Gisselle Valdez MD LAB BLOOD ORDERAB LES Final Result [facility] [address] [place] [phone] * (ABNORMAL) Ferritin (08/06/2025 9:09 AM EDT) Ferritin 500(H) 20 - 250 ng/mL [facility] Blood Venous blood specimen / Unknown 08/06/2025 9:09 AM EDT 08/06/2025 9:09 AM EDT us Gisselle Valdez MD LAB BLOOD ORDERAB LES Final Result Performing Organization Address City/[facility]/ZIP Co de Phone Number [facility] [address] [place] [phone] * (ABNORMAL) Lipid Panel, Standard (08/06/2025 9:09 AM EDT) Triglycerides 133 <150 mg/dL [facility] Comment:Desirable Triglyceri de: less than 150 mg/dLBorderline High Triglyceride 150-199 mg/dLHigh Triglyceride: 200-499 mg/dLVery High Triglyceride: greater than or equal to 5OO mg/dL Cholesterol 134 <200 mg/dL [facility] Comment:Desirable Cholestero l: less than 200 mg/dLBorderline High Cholesterol: 200-239 mg/dLHigh Cholesterol: greater than 239 mg/dL LDL Cholesterol Calculated 75 <100 mg/dL [facility] Comment:Desirable LDL: less than 100 mg/dLNear Optimal/Above Optimal LDL: 110- 129 mg/dLBorderline High LDL: 130-159 mg/dLHigh LDL: 160-189 mg/dLVery High LDL: greater than or equal to 190 mg/dL HDL Cholesterol 33(L) >40 mg/dL [facility] Comment:Desirable HDL: great er than 40 mg/dL Note: This HDL assay may give artificially low results in patients with liver disease. Blood Venous blood specimen / Unknown 08/06/2025 9:09 AM EDT 08/06/2025 9:09 AM EDT us Gisselle Valdez MD LAB BLOOD ORDERAB LES Final Result Performing Organization Address City/[facility]/ZIP Co de Phone Number [facility] [address] [place] [phone] * (ABNORMAL) Comprehensive Metabolic Panel (08/06/2025 9:09 AM EDT) Sodium 137 135 - 145 mmol/L [facility] Potassium 4.6 3.3 - 5.1 mmol/L [facility] Chloride 106 96 - 108 mmol/L [facility] Carbon Dioxide 23 22 - 29 mmol/L [facility] Anion Gap 13 12 - 20 [facility] Urea Nitrogen (BUN) 41(H) 9 - 16 mg/dL [facility] Creatinine, Serum 1.49(H) 0.5 - 1.4 mg/dL [facility] Estimated Glomerular Filt Rate 49 [facility] Comment:Chronic Kidney Disea se: Estimated GFR < 60 mL/min/1.38b2Csbvlp Kidney Disease: Estimated GFR < 15 mL/min/1.73m2 Glucose 101 60 - 115 mg/dL [facility] Calcium 9.8 8.4 - 10.2 mg/dL [facility] Bilirubin, Total 0.9 0.0 - 1.0 mg/dL [facility] Aspartate Amino Transferase 35 5 - 37 U/L [facility] Alanine Aminotransferase 25 0 - 40 U/L [facility] Total Protein 8.0 6.5 - 8.0 g/dL [facility] Albumin Level 4.7 3.5 - 5.0 g/dL [facility] Alkaline Phosphatase 94 39 - 117 U/L [facility] Blood Venous blood specimen / Unknown 08/06/2025 9:09 AM EDT 08/06/2025 9:09 AM EDT us Gisselle Valdez MD LAB BLOOD ORDERAB LES Final Result [facility] [address] [place] [phone] * Hm Colonoscopy (07/17/2024 1:24 PM EDT) us Historical Provider HEALTH MAINTENANCE Final Result from Last 3 Months or Most Recently Relevant to Health Maintenance Insurance [facility] C3 DENTAL-[facility] [place] [id number] Care Teams Restaurant Area Director Relationship Specialty Start Date End Date Gisselle Keyes MD [address] [place] [phone] PCP - General Internal Medicine 08/03/23
--- OUTSIDE RECORDS SUMMARY | 2025-08-28 13:10 | XMS_ITS | Encounter Summary ---
Author Organization [employer] Address [address] [place] [address] Care Team Providers Care Finished Carpet Inspector Name Role Phone Nirali Reynolds MD Primary Care Provider Amelia Earl Primary Care Provider Aurelio Kaur Primary Care Provider Larisa Baker Primary Care Provider [phone] Gisselle Keyes MD Primary Care Pro vider Encounter Details Date Type Department Care Team (Latest Contact Info) Description 08/30/2022 Abstract [facility] CONVERSION[facility] Dental, Provider, DDS Social [...] on filedocumented in this encounter Care Teams Finished Carpet Inspector Relationship Specialty Start Date End Date Nirali Reynolds MD PCP - General Family Medicine 04/25/20 01/09/23 Amelia Corea FNP PCP - General Family Medicine 01/10/23 01/12/23 Aurelio Barajas AGNP PCP - General Family Medicine 01/13/23 07/20/23 Larisa Griffith FNP [address] [place] [address] PCP - General Family Medicine 07/21/23 08/02/23 Gisselle Keyes MD [address] [place] [address] PCP - General Internal Medicine 08/03/23 documented as of this encounter
--- OUTSIDE RECORDS SUMMARY | 2025-08-28 13:10 | XMS_ITS | Encounter Summary ---
Author Organization [employer] Address [address] [place] [address] Care Team Providers Care Bolt Labeler Name Role Phone Gisselle Keyes MD Primary Care Pro vider Encounter Details Date Type Department Care Team (Latest Contact Info) Description 08/26/2025 Travel Social History Tobacco Use Types Packs/Day [...] Time PHQ-9 Depression Total Score: 0 08/09/20 10:30 AM EDT documented as of this encounter Care Teams Bolt Labeler Relationship Specialty Start Date End Date Gisselle Keyes MD [address] [place] [phone] PCP - General Internal Medicine 08/03/23 documented as of this encounter
--- OUTSIDE RECORDS SUMMARY | 2025-08-28 13:10 | XMS_ITS | Encounter Summary ---
Author Organization [employer] Address [address] [facility] [address] [facility] [facility] [address] [place] [address] Care Team Providers Care Transfer Controller Name Role Phone Aurelio Barajas Primary Care Provider Larisa Baker Primary Care Provider [phone] Gisselle Keyes MD Primary Care Pro vider Reason for Visit * Reason Onset Date Comments Appointment 03/02/2023 Encounter Details Date Type Department Care Team (Late st Contact Info) Description 03/02/2023 Telephone [facility] [address] [place] [address] Chanda Castillo DDS [address] [place] [address] Appointment Social History Tobacco Use Types Packs/Day [...] on filedocumented in this encounter Care Teams Transfer Controller Relationship Specialty Start Date End Date Aurelio Barajas AGNP PCP - General Family Medicine 01/13/23 07/20/23 Larisa Griffith FNP [address] [place] [address] PCP - General Family Medicine 07/21/23 08/02/23 Gisselle Keyes MD [address] [place] [address] PCP - General Internal Medicine 08/03/23 documented as of this encounter
--- OUTSIDE RECORDS SUMMARY | 2025-08-28 13:10 | XMS_ITS | Encounter Summary ---
Author Organization [employer] Address [address] [place] [address] Care Team Providers Care Automotive Service Advisor Name Role Phone Gisselle Keyes MD Primary Care Pro vider Encounter Details Date Type Department Care Team (Late st Contact Info) Description 10/19/2024 Orders Only [facility] [address] [place] [address] Provider, MD Vanda Social History Tobacco Use [...] with others, in a hotel, in a long-term, living outside on the street, on a [...] on file documented as of this encounter Procedures Procedure Name Priority Date/Time Associated Diagnosis Comments HM COLONOSCOPY Routine 07/17/2024 1:24 PM EDT documented in this encounter Results * Hm Colonoscopy (07/17/2024 1:24 PM EDT) Historical Provider HEALTH MAINTENANCE Final Result documented in this encounter Visit Diagnoses Not on filedocumented in this encounter Additional Health Concerns Assessment Noted Time PHQ-9 Depression Total Score: 0 07/05/20 1:45 PM EDT documented as of this encounter Care Teams Automotive Service Advisor Relationship Specialty Start Date End Date Gisselle Keyes MD [address] [place] [phone] PCP - General Internal Medicine 08/03/23 documented as of this encounter
--- OUTSIDE RECORDS SUMMARY | 2025-08-28 13:10 | XMS_ITS | Encounter Summary ---
Author Organization [employer] [facility] Address [address] [place] [address] Care Team Providers Care Salvage Inspector [employer] Name Role Phone Nirali Reynolds MD Primary Care Provider Amelia Earl Primary Care Provider Aurelio Kaur Primary Care Provider Larisa Baker CIVIL RIGHTS ATTORNEY Primary Care Provider [phone] Gisselle Keyes MD Primary Care Pro vider Encounter Details Date Type Department Care Team (Late st Contact Info) Description 10/21/2022 Abstract [facility] [address] [place] [address] Larry Kemp DDS [address] [place] [address] Social History Tobacco Use Types Packs/Day Years [...] on filedocumented in this encounter Care Teams Salvage Inspector [employer] Relationship Specialty Start Date End Date Nirali Reynolds MD PCP - General Family Medicine 04/25/20 01/09/23 Amelia Corea FNP PCP - General Family Medicine 01/10/23 01/12/23 Aurelio Barajas AGNP PCP - General Family Medicine 01/13/23 07/20/23 Larisa Griffith FNP [address] [place] [address] PCP - General Family Medicine 07/21/23 08/02/23 Gisselle Keyes MD [address] [place] [address] PCP - General Internal Medicine 08/03/23 documented as of this encounter
--- OUTSIDE RECORDS SUMMARY | 2025-08-28 13:11 | XMS_ITS | Encounter Summary ---
Author Organization [employer] Address [address] [facility] [address] [place] [address] Care Team Providers Care Knife Setter Assembler Name Role Phone Gisselle Keyes MD Primary Care Pro vider Reason for Visit * Reason Comments Med Refill Encounter Details Date Type Department Care Team ([facility] st Contact Info) Description 04/19/2025 Refill [facility] [address] [place] [address] Gisselle Keyes MD [address] [place] [address] Social History Tobacco Use Types Packs/Day Years [...] documented as of this encounter Care Teams Knife Setter Assembler Relationship Specialty Start Date End Date Gisselle Keyes MD [address] [place] [phone] PCP - General Internal Medicine 08/03/23 documented as of this encounter
== END 2025-08-28 11:04 | disposition home or self-care (01) ==
PROVIDERS: Emergency Provider Student in an Organized Health Care Education/Training Program; PCP Student in an Organized Health Care Education/Training Program
DX: G24.3 Spasmodic torticollis (principal); M54.2 Cervicalgia
CPT/HCPCS: 99282; 99283